=== PATIENT | female | born 1980 | race Caucasian/White ===

== ENCOUNTER 2016-07-13 14:52 | Inpatient (IN) | payer OTHER ==
[~2016-07-13] VITALS: Ht 157.5 cm; Wt 97.2 kg
[~2016-07-13 14:52] MED LIST: ACET500T68 PO; AMLO10TA2 PO; FLUO40CA9 PO; HYDR25TA9 PO; LISI40TA PO; MEDR150D3 IM; TRIA100A TP; VENTOLIN HFA18 GM INH
[2016-07-13 17:00] LABS: BASO # 0.1 x10^3/uL (0.0-0.2); BASO % 1 % (0-3); EOS % 3 % (0-3); HEMATOCRIT 36.7 % (36.0-47.0); LYMPH # 1.5 x10^3/uL (1.0-4.8); LYMPH % 12 % (24-48); MEAN CORPUSCULAR HEMOGLOBIN 29 pg (25-35); MEAN CORPUSCULAR HGB CONC 33 g/dL (31-37); MEAN CORPUSCULAR VOLUME 87 fL (79-100); MONO % 6 % (0-9); NEUT % 79 % (31-73); PLATELET COUNT 209 x10^3/uL (140-400); RED BLOOD COUNT 4.21 x10^6/uL (3.50-5.40); RED CELL DISTRIBUTION WIDTH 15.5 % (11.5-14.5); WHITE BLOOD COUNT 12.5 x10^3/uL (4.0-11.0)
[2016-07-13] MEDS ORDERED: LABETALOL 20 MG/4 ML DISP.SYRIN. IVP ONE (17:00)
[2016-07-13 17:08] LABS: BILIRUBIN,URINE NEGATIVE (NEG); GLUCOSE,URINE NEGATIVE (NEG); NITRITE,URINE NEGATIVE (NEG); PH,URINE 7.5; PROTEIN,URINE >=300 mg/dL (NEG-TRACE); UROBILINOGEN,URINE 0.2 mg/dL (0.2 mg/dL)
[2016-07-13 17:15] LABS: CALCIUM 8.9 mg/dL (8.5-10.1); CREATININE 2.7 mg/dL (0.6-1.0); GFR 19.9; POTASSIUM 4.5 mmol/L (3.5-5.1)
[2016-07-13 17:20] LABS: ALBUMIN 2.3 g/dL (3.4-5.0); ALBUMIN/GLOBULIN RATIO 0.5 (1.0-1.7); TOTAL BILIRUBIN 0.2 mg/dL (0.2-1.0); TOTAL PROTEIN 6.8 g/dL (6.4-8.2)
[2016-07-13 17:25] LABS: BACTERIA,URINE 0 /HPF (0-FEW); SQUAMOUS EPITHELIAL CELL,UR MOD /LPF
--- NOTE | 2016-07-13 17:42 | PHYS DOC ---
Past Medical History Past Medical History: Asthma, Bipolar, Hypertension, Other Additional Past Medical Histor: learning disability Past Surgical History: No Surgical History Alcohol Use: Occasionally Drug Use: None Adult General Chief Complaint Chief Complaint: ABDOMINAL PAIN HPI HPI Patient is a 36 year old female who presents with complaint of abdominal pain. Patient states that she has had symptoms for the past 5 days. Patient was seen in the emergency department on July 09, 2016 and evaluated for similar complaints. The patient had an ultrasound which showed a mildly distended gallbladder with positive sonographic Chang's but no signs of gallbladder wall thickening, pericholecystic fluid, or gallstones. At that visit the patient was told that she would need to be admitted the hospital but decided to leave AGAINST MEDICAL ADVICE. The patient comes back today with persistent pain. Patient admits that she has had nausea and vomiting. Patient denies any associated fevers. Patient rates her pain on my evaluation as 8 out of 10. Patient has history of hypertension and was noted at triage to be critically hypertensive. Patient states that she took her medication as prescribed today. Review of Systems Review of Systems Constitutional: Denies fever or chills [] Eyes: Denies change in visual acuity, redness, or eye pain [] HENT: Denies nasal congestion or sore throat [] Respiratory: Denies cough or shortness of breath [] Cardiovascular: Denies chest pain or edema [] GI: Abdominal pain, nausea, vomiting, denies bloody stools or diarrhea [] : Denies dysuria or hematuria [] Musculoskeletal: Denies back pain or joint pain [] Integument: Denies rash or skin lesions [] Neurologic: Denies headache, focal weakness or sensory changes [] Current Medications Current Medications Current Medications Medications (Trade) Dose Ordered Sig/Bety Start Time Stop Time Status Last Admin Dose Admin Labetalol HCl (Normodyne) 20 mg 1X ONCE 07/13/16 17:00 07/13/16 17:01 DC 07/13/16 17:10 20 MG Allergies Allergies Allergies Coded Allergies Type Severity Reaction Last Updated Verified No Known Drug Allergies 12/08/15 No Physical Exam Physical Exam Constitutional: Alert, afebrile, appears in mild discomfort. [] HENT: Normocephalic, atraumatic, bilateral external ears normal, oropharynx moist, no oral exudates, nose normal. [] Eyes: PERRLA, EOMI, conjunctiva normal, no discharge. [] Neck: Normal range of motion, no tenderness, supple, no stridor. [] Cardiovascular: Tachycardia, regular rhythm, no murmur [] Lungs & Thorax: Bilateral breath sounds clear to auscultation [] Abdomen: Bowel sounds normal, soft, epigastric and right upper quadrant tenderness to palpation with guarding, no rebound tenderness, no masses, no pulsatile masses. [] Skin: Warm, dry, no erythema, no rash. [] Back: No tenderness, no CVA tenderness. [] Extremities: No tenderness, no cyanosis, no clubbing, ROM intact, no edema. [] Neurologic: Alert and oriented X 3, normal motor function, normal sensory function, no focal deficits noted. [] Current Patient Data Vital Signs Vital Signs Date Time Temp Pulse Resp B/P Pulse Ox O2 Delivery O2 Flow Rate FiO2 07/13/16 17:10 85 215/129 07/13/16 15:00 98.7 17 100 Room Air 98.7 Lab Values Laboratory Tests Test 07/13/16 15:00 07/13/16 15:45 Urine Collection Type Unknown Urine Color Yellow Urine Clarity Clear Urine pH 7.5 Urine Specific [place] 1.015 Urine Protein >=300mg/dL (NEG-TRACE) Urine Glucose (UA) Negativemg/dL (NEG) Urine Ketones (Stick) Negativemg/dL (NEG) Urine Blood Trace (NEG) Urine Nitrite Negative (NEG) Urine Bilirubin Negative (NEG) Urine Urobilinogen Dipstick 0.2mg/dL (0.2 mg/dL) Urine Leukocyte Esterase Negative (NEG) Urine RBC 6-10/HPF (0-2) Urine WBC 1-4/HPF (0-4) Urine Squamous Epithelial Cells Mod/LPF Urine Bacteria 0/HPF (0-FEW) Urine Mucus Slight/LPF White Blood Count 12.5x10^3/uL (4.0-11.0) H Red Blood Count 4.21x10^6/uL (3.50-5.40) Hemoglobin 12.0g/dL (12.0-15.5) Hematocrit 36.7% (36.0-47.0) Mean Corpuscular Volume 87fL (79-100) Mean Corpuscular Hemoglobin 29pg (25-35) Mean Corpuscular Hemoglobin Concent 33g/dL (31-37) Red Cell Distribution Width 15.5% (11.5-14.5) H Platelet Count 209x10^3/uL (140-400) Neutrophils (%) (Auto) 79% (31-73) H Lymphocytes (%) (Auto) 12% (24-48) L Monocytes (%) (Auto) 6% (0-9) Eosinophils (%) (Auto) 3% (0-3) Basophils (%) (Auto) 1% (0-3) Neutrophils # (Auto) 9.9x10^3uL (1.8-7.7) H Lymphocytes # (Auto) 1.5x10^3/uL (1.0-4.8) Monocytes # (Auto) 0.7x10^3/uL (0.0-1.1) Eosinophils # (Auto) 0.4x10^3/uL (0.0-0.7) Basophils # (Auto) 0.1x10^3/uL (0.0-0.2) Sodium Level 142mmol/L (136-145) Potassium Level 4.5mmol/L (3.5-5.1) Chloride Level 108mmol/L (98-107) H Carbon Dioxide Level 25mmol/L (21-32) Anion Gap 9 (6-14) Blood Urea Nitrogen 25mg/dL (7-20) H Creatinine 2.7mg/dL (0.6-1.0) H Estimated GFR (Cockcroft-Gault) 19.9 BUN/Creatinine Ratio 9 (6-20) Glucose Level 89mg/dL (70-99) Calcium Level 8.9mg/dL (8.5-10.1) Total Bilirubin 0.2mg/dL (0.2-1.0) Aspartate Amino Transferase (AST) 23U/L (15-37) Alanine Aminotransferase (ALT) 31U/L (14-59) Alkaline Phosphatase 113U/L (46-116) Total Protein 6.8g/dL (6.4-8.2) Albumin 2.3g/dL (3.4-5.0) L Albumin/Globulin Ratio 0.5 (1.0-1.7) L Lipase 1160U/L (73-393) H Laboratory Tests 07/13/16 15:45 Laboratory Tests 07/13/16 15:45 EKG EKG Not performed [] Radiology/Procedures Radiology/Procedures [facility] [address] [place] [address] IMAGING REPORT Signed PATIENT: JESSICA CALLE ACCOUNT: [id number] : 1980 LOCATION: ICU AGE: 36 SEX: F EXAM STATUS: ADM IN ORD. PHYSICIAN: GAUDENCIO TIMMONS MD REASON: right upper quadrant pain, history of gallstones, acute pancreatitis PROCEDURE: ABDOMEN LTD PROCEDURE Right upper quadrant ultrasound HISTORY 36-year-old female complaining of sharp epigastric pain for 1 day, history of gallstones and acute pancreatitis. TECHNIQUE Targeted sonography of the right upper quadrant is performed, with transverse and longitudinal images obtained. COMPARISON None FINDINGS The pancreas is mostly obscured by overlying bowel gas and not well evaluated. No focal fluid collection is seen in the region of the pancreas. The liver demonstrates normal contour and echogenicity measuring 15.9 cm. Main portal vein demonstrates normal directional flow. Right hepatic vein is patent. The right kidney measures 11.2 by 4.9 x 5.3 cm. No hydronephrosis is present. A tiny, 8 mm, mostly anechoic appearing structure is visualized in the mid right kidney, likely a sub centimeter cyst. No intraluminal, calcified gallstones are seen. The gallbladder is small in size, somewhat contracted with mild prominence of the wall with a thickness of 3.6 mm, likely secondary to NPO status. No pericholecystic fluid is seen. Common bile duct measures 4 mm in diameter. IMPRESSION 1. No acute sonographic finding in the right upper quadrant. No evidence of cholelithiasis. Pancreas not well visualized. 2. Sub centimeter, probable right renal cyst. Electronically signed by: Alvarez Lea (Jul 13, 2016 18:47:22) DICTATED and SIGNED BY: ALVAREZ LEA MD DATE: 07/13/161846 CC: GAUDENCIO TIMMONS MD; NO PCP ~ [] Course & Med Decision Making Course & Med Decision Making Pertinent Labs and Imaging studies reviewed. (See chart for details) Patient was given IV labetalol in the emergency department for hypertension. Patient was treated with fentanyl for pain. Patient was found have critically elevated blood pressure. The patient's labs were reviewed from July 09, 2016 at her previous visit. The patient's lipase was normal at that visit. On today's visit the patient's lipase is significantly elevated showing evidence of acute pancreatitis. The patient will need admission to the hospital for acute control of blood pressure and further workup for acute pancreatitis. I spoke with Dr. Weaver who accepted care patient in hospital. Dragon Disclaimer Dragon Disclaimer This electronic medical record was generated, in whole or in part, using a voice recognition dictation system. Departure Departure Impression: Primary Impression: Accelerated hypertension Additional Impression: Acute pancreatitis Disposition: ADMITTED INPATIENT Admitting Physician: Bernadette Weaver Condition: GUARDED Referrals: NO PCP (PCP) Problem Qualifiers Additional Impression: Acute pancreatitis Pancreatitis type: unspecified pancreatitis type Acute pancreatitis complication: unspecified Qualified Code: K85.90 - Acute pancreatitis without necrosis or infection, unspecified GAUDENCIO TIMMONS MD Jul 13, 2016 17:42
[2016-07-13] MEDS ORDERED: hydrALAZINE 20 MG/ML VIAL. IVP PRN (17:45)
[2016-07-13] MEDS ORDERED: LABETALOL 20 MG/4 ML DISP.SYRIN. IVP PRN (17:45)
[2016-07-13] MEDS ORDERED: ONDANSETRON PF 4 MG/2 ML VIAL. IV PRN (17:45)
[2016-07-13] MEDS: FENTANYL PF 100 MCG/2 ML VIAL. IV PRN ×2 (18:08→20:05)
[2016-07-13] MEDS: IV NORMAL SALINE 1000ML BAG 1,000 ML IV SCH (18:09)
--- NOTE | 2016-07-13 18:49 | RAD ---
PROCEDURE Right upper quadrant ultrasound HISTORY 36-year-old female complaining of sharp epigastric pain for 1 day, history of gallstones and acute pancreatitis. TECHNIQUE Targeted sonography of the right upper quadrant is performed, with transverse and longitudinal images obtained. COMPARISON None FINDINGS The pancreas is mostly obscured by overlying bowel gas and not well evaluated. No focal fluid collection is seen in the region of the pancreas. The liver demonstrates normal contour and echogenicity measuring 15.9 cm. Main portal vein demonstrates normal directional flow. Right hepatic vein is patent. The right kidney measures 11.2 by 4.9 x 5.3 cm. No hydronephrosis is present. A tiny, 8 mm, mostly anechoic appearing structure is visualized in the mid right kidney, likely a sub centimeter cyst. No intraluminal, calcified gallstones are seen. The gallbladder is small in size, somewhat contracted with mild prominence of the wall with a thickness of 3.6 mm, likely secondary to NPO status. No pericholecystic fluid is seen. Common bile duct measures 4 mm in diameter. IMPRESSION 1. No acute sonographic finding in the right upper quadrant. No evidence of cholelithiasis. Pancreas not well visualized. 2. Sub centimeter, probable right renal cyst. Electronically signed by: Meenu Lea (Jul 13, 2016 18:47:22)
[2016-07-13 19:00] VITALS: BP 194/110
[2016-07-13 19:53] LABS: CHOLESTEROL/HDL RATIO 5.7
[2016-07-13] MEDS: NICARDIPINE HCL 50 MG in IV NORMAL SALINE 250ML 250 ML IV PRN (20:06)
[2016-07-13 20:21] VITALS: BP 194/110
[2016-07-13 20:23] VITALS: BP 161/110
[2016-07-13 20:38] VITALS: BP 156/95
[2016-07-13 20:42] LABS: FREE T4 1.17 ng/dL (0.76-1.46)
[2016-07-13 21:00] VITALS: BP 162/92
--- NOTE | 2016-07-13 21:56 | ACF ---
Admission Forms Criteria HYPERTENSION Clinical Indications for Admission to Inpatient Care ( Place "X" for any and all applicable criteria): Admission is indicated for ANY ONE of the following(1)(2)(3)(4): [ ]I. Hypertensive emergency, with evidence of acute and progressing target organ disease as indicated by ANY ONE of the following: [ ]a) Hypertensive encephalopathy (eg, confusion, altered mental status) [ ]b) Cerebral infarction [ ]c) Intracranial hemorrhage [ ]d) Myocardial ischemia or infarction [ ]e) Pulmonary edema [ ]f) Aortic dissection [ ]g) Seizure [ ]h) Acute renal insufficiency [ ]i) Papilledema [ ]j) Microangiopathic hemolytic anemia [ ]II. Adrenergic crisis (eg, severe hypertension due to pheochromocytoma crisis, cocaine or amphetamine intoxication, or clonidine withdrawal) [X]III. Severe hypertension (SBP greater than 180 mmHg or DBP greater than 110 mmHg or greater than the 95th percentile for age, gender, and height in pediatric patients) that cannot be controlled (eg, to SBP less than 160 mmHg and DBP less than 100 mmHg in adults) by treatment with oral medication in emergency department or observation care Extended stay beyond goal length of stay may be needed for(11)(12)(13): [ ]a) Persistent hypertensive encephalopathy [ ]b) Continuation of pulmonary edema [ ]c) Recurring or persistent severe hypertension [ ]d) Target organ damage (eg, angina, stroke, aortic dissection) [ ]e) Associated renal insufficiency The original [employer] content created by [employer] has been revised. The portions of the content which have been revised are identified through the use of italic text or in bold, and [facility] has neither reviewed nor approved the modified material. All other unmodified content is copyright [employer]. Please see references footnoted in the original [employer] edition 2016 Admission Criteria Met?: Yes NGUYỄN MENDOZA Jul 13, 2016 21:56
[2016-07-13 23:00] VITALS: BP 141/74
[2016-07-13] MEDS ORDERED: AMLO10TA2 PO (23:30)
[2016-07-13] MEDS ORDERED: LISI40TA PO (23:30)
[2016-07-13] MEDS ORDERED: FLUO40CA9 PO (23:30)
--- NOTE | 2016-07-13 23:59 | PDOC1 ---
History and Physical Date of Admission Date of Admission DATE: 07/13/16 TIME: 23:59 Identification/Chief Complaint Chief Complaint abd pain Source Source: Chart review, Patient History of Present Illness History of Present Illness Ms. Acuna, is a 36 year old female admit from ER w/ acute abdominal pain. has had Nausea and vomiting Worsneing pain for the past 5 days, was 8/10, now she reports resolved after fluids and some NPO Accel HTn in ER, BP 220/100, cardene gtt started . she was eval here in the ER 4 days ago, left AMA positive sonographic Chang's but no signs of gallbladder wall thickening, pericholecystic fluid, or gallstones. she inquired if she could be DC tomorrow she is on disability for her bipolar D/O, lives with her mother Past Medical History Cardiovascular: HTN Psych: Anxiety, Bipolar, Depression Musculoskeletal: low back pain ENT: No pertinent hx Renal/: No pertinent hx Endocrine: No pertinent hx Dermatology: No pertinent hx Family History Family History: No Significant Social History Smoke: No ALCOHOL: none Drugs: None Current Problem List Problem List Problems Medical Problems: (1) Accelerated hypertension Status: Acute (2) Acute pancreatitis Status: Acute Problems: Current Medications Current Medications Current Medications Labetalol HCl (Normodyne) 20 mg 1X ONCE IVP Last administered on 07/13/16 17: 10; Start 07/13/16 at 17:00; Stop 07/13/16 at 17:01; Status DC Ondansetron HCl (Zofran) 4 mg PRN Q8HRS PRN IV NAUSEA/VOMITING; Start 07/13/16 at 17:45; Stop 07/14/16 at 17:44 Fentanyl Citrate 50 mcg 50 mcg PRN Q2HR PRN IV PAIN Last administered on 20:05; Start 07/13/16 at 17:45; Stop 07/14/16 at 17:44 Sodium Chloride (Iv Sodium Chloride 0.9% 1000ml Bag) 1,000 ml @ 125 mls/hr Q8H IV Last administered on 07/13/16 18:09; Start 07/13/16 at 18:00; Stop 07/14/16 at 17:59 Labetalol HCl (Normodyne) 20 mg PRN Q2HR PRN IVP HYPERTENSION, SEE COMMENTS; Start 07/13/16 at 17:45 Hydralazine HCl 10 mg 10 mg PRN Q4HRS PRN IVP ELEVATED BP, SEE COMMENTS Last administered on 07/13/16 18:07; Start 07/13/16 at 17:45 Nicardipine HCl/ Sodium Chloride (Cardene/Iv Sodium Chloride 0.9% 250ml) 270 ml @ 0 mls/hr CONT PRN IV SEE I/O RECORD Last administered on 07/13/16 20:06; Start 07/13/16 at 19:30 Active Scripts Active Reported Amlodipine Besylate 10 Mg Tablet 10 Mg PO DAILY Lisinopril 40 Mg Tablet 1 Tab PO HS Prozac (Fluoxetine Hcl) 40 Mg Capsule 1 Cap PO DAILY Allergies Allergies: Coded Allergies: No Known Drug Allergies (Unverified , 12/08/15) ROS General: YES: Appetite, Fatigue, Malaise, No: Chills, Night Sweats, Other PSYCHOLOGICAL ROS: No: Anxiety, Behavioral Disorder, Concentration difficultie , Decreased libido, Depression, Disorientation, Hallucinations, Hostility, Irritablity, Memory difficulties, Mood Swings, Obsessive thoughts, Other, Physical abuse, Sexual abuse, Sleep disturbances, Suicidal ideation Eyes: No Blurry vision, No Decreased vision, No Double vision, No Dry eyes, No Excessive tearing, No Eye Pain, No Itchy Eyes, No Loss of vision, No Other, No Photophobia, No Scotomata, No Uses contacts, No Uses glasses HEENT: No: Epistaxis, Heacaches, Hearing change, Nasal congestion, Nasal discharge, Oral lesions, Other, Sinus pain, Sneezing, Snoring, Sore Throat, Tinnitus, Vertigo, Visual Changes, Vocal changes Respiratory: No: Cough, Hemoptysis, Orthopnea, Other, Pleuritic Pain, SOB with excertion, Shortness of breath, Sputum Changes, Stridor, Tachypnea, Wheezing Cardiovascular: No Chest Pain, No Edema, No Lt Headedness, No Orthopnea, No Other, No Palpitations, No Paroxysmal Noc. Dyspnea Gastrointestinal: Yes Abdominal Pain, Yes Nausea, No Constipation, No Diarrhea, No Hematochezia, No Melena, No Other, No Vomiting Genitourinary: No , No , No , No , No , No , No , No Discharge, No Dysuria, No Flank Pain, No Frequency, No Hematuria, No Incontinence, No Other, No Pain, No Retention, No Urgency Musculoskeletal: Yes Joint Stiffness, No Gait Disturbance, No Joint Swelling, No Muscle Pain, No Muscular Weakness , No Other, No Pain In:, No Swelling In: Neurological: No Behavorial Changes, No Bowel/Bladder ControlChng, No Confusion , No Dizziness, No Gait Disturbance, No Headaches, No Impaired Coord/balance, No Memory Loss, No Numbness/Tingling, No Other, No Seizures, No Speech Problems , No Tremors, No Visual Changes, No Weakness Skin: Yes Dry Skin, No Acne, No Eczema, No Hair Changes, No Lumps, No Mole Changes, No Mottling, No Nail Changes, No Other, No Pruritus, No Rash, No Skin Lesion Changes Physical Exam General: Alert, Oriented X3, Cooperative, No acute distress HEENT: Atraumatic, EOMI, Mucous membr. moist/pink Lungs: Normal air movement Heart: no gallops, no murmurs Abdomen: Normal bowel sounds, Soft, No tenderness (obese) Rectal Exam: not examined, deferred Extremities: No clubbing, No edema, Normal pulses Skin: No rashes, No significant lesion Neuro: Normal speech, Sensation intact Psych/Mental Status: Mental status NL, Mood NL Vitals Vitals Vital Signs Date Time Temp Pulse Resp B/P Pulse Ox O2 Delivery O2 Flow Rate FiO2 07/13/16 23:00 98.7 98 20 141/74 99 Room Air 98.7 Labs Labs Laboratory Tests Test 07/13/16 15:00 07/13/16 15:45 Urine Collection Type Unknown Urine Color Yellow Urine Clarity Clear Urine pH 7.5 Urine Specific [place] 1.015 Urine Protein >=300mg/dL (NEG-TRACE) Urine Glucose (UA) Negativemg/dL (NEG) Urine Ketones (Stick) Negativemg/dL (NEG) Urine Blood Trace (NEG) Urine Nitrite Negative (NEG) Urine Bilirubin Negative (NEG) Urine Urobilinogen Dipstick 0.2mg/dL (0.2 mg/dL) Urine Leukocyte Esterase Negative (NEG) Urine RBC 6-10/HPF (0-2) Urine WBC 1-4/HPF (0-4) Urine Squamous Epithelial Cells Mod/LPF Urine Bacteria 0/HPF (0-FEW) Urine Mucus Slight/LPF White Blood Count 12.5x10^3/uL (4.0-11.0) Red Blood Count 4.21x10^6/uL (3.50-5.40) Hemoglobin 12.0g/dL (12.0-15.5) Hematocrit 36.7% (36.0-47.0) Mean Corpuscular Volume 87fL (79-100) Mean Corpuscular Hemoglobin 29pg (25-35) Mean Corpuscular Hemoglobin Concent 33g/dL (31-37) Red Cell Distribution Width 15.5% (11.5-14.5) Platelet Count 209x10^3/uL (140-400) Neutrophils (%) (Auto) 79% (31-73) Lymphocytes (%) (Auto) 12% (24-48) Monocytes (%) (Auto) 6% (0-9) Eosinophils (%) (Auto) 3% (0-3) Basophils (%) (Auto) 1% (0-3) Neutrophils # (Auto) 9.9x10^3uL (1.8-7.7) Lymphocytes # (Auto) 1.5x10^3/uL (1.0-4.8) Monocytes # (Auto) 0.7x10^3/uL (0.0-1.1) Eosinophils # (Auto) 0.4x10^3/uL (0.0-0.7) Basophils # (Auto) 0.1x10^3/uL (0.0-0.2) Sodium Level 142mmol/L (136-145) Potassium Level 4.5mmol/L (3.5-5.1) Chloride Level 108mmol/L (98-107) Carbon Dioxide Level 25mmol/L (21-32) Anion Gap 9 (6-14) Blood Urea Nitrogen 25mg/dL (7-20) Creatinine 2.7mg/dL (0.6-1.0) Estimated GFR (Cockcroft-Gault) 19.9 BUN/Creatinine Ratio 9 (6-20) Glucose Level 89mg/dL (70-99) Calcium Level 8.9mg/dL (8.5-10.1) Total Bilirubin 0.2mg/dL (0.2-1.0) Aspartate Amino Transf (AST/SGOT) 23U/L (15-37) Alanine Aminotransferase (ALT/SGPT) 31U/L (14-59) Alkaline Phosphatase 113U/L (46-116) Total Protein 6.8g/dL (6.4-8.2) Albumin 2.3g/dL (3.4-5.0) Albumin/Globulin Ratio 0.5 (1.0-1.7) Triglycerides Level 131mg/dL (0-150) Cholesterol Level 245mg/dL (0-200) LDL Cholesterol, Calculated 176mg/dL (0-100) VLDL Cholesterol, Calculated 26mg/dL (0-40) HDL Cholesterol 43mg/dL (40-60) Cholesterol/HDL Ratio 5.7 Lipase 1160U/L (73-393) Thyroid Stimulating Hormone (TSH) 1.605uIU/mL (0.358-3.74) Free Thyroxine 1.17ng/dL (0.76-1.46) Free Triiodothyronine (T3) pg/mL 2.30pg/mL (2.18-3.98) Laboratory Tests Test 07/13/16 15:00 07/13/16 15:45 Urine Collection Type Unknown Urine Color Yellow Urine Clarity Clear Urine pH 7.5 Urine Specific [place] 1.015 Urine Protein >=300mg/dL (NEG-TRACE) Urine Glucose (UA) Negativemg/dL (NEG) Urine Ketones (Stick) Negativemg/dL (NEG) Urine Blood Trace (NEG) Urine Nitrite Negative (NEG) Urine Bilirubin Negative (NEG) Urine Urobilinogen Dipstick 0.2mg/dL (0.2 mg/dL) Urine Leukocyte Esterase Negative (NEG) Urine RBC 6-10/HPF (0-2) Urine WBC 1-4/HPF (0-4) Urine Squamous Epithelial Cells Mod/LPF Urine Bacteria 0/HPF (0-FEW) Urine Mucus Slight/LPF White Blood Count 12.5x10^3/uL (4.0-11.0) Red Blood Count 4.21x10^6/uL (3.50-5.40) Hemoglobin 12.0g/dL (12.0-15.5) Hematocrit 36.7% (36.0-47.0) Mean Corpuscular Volume 87fL (79-100) Mean Corpuscular Hemoglobin 29pg (25-35) Mean Corpuscular Hemoglobin Concent 33g/dL (31-37) Red Cell Distribution Width 15.5% (11.5-14.5) Platelet Count 209x10^3/uL (140-400) Neutrophils (%) (Auto) 79% (31-73) Lymphocytes (%) (Auto) 12% (24-48) Monocytes (%) (Auto) 6% (0-9) Eosinophils (%) (Auto) 3% (0-3) Basophils (%) (Auto) 1% (0-3) Neutrophils # (Auto) 9.9x10^3uL (1.8-7.7) Lymphocytes # (Auto) 1.5x10^3/uL (1.0-4.8) Monocytes # (Auto) 0.7x10^3/uL (0.0-1.1) Eosinophils # (Auto) 0.4x10^3/uL (0.0-0.7) Basophils # (Auto) 0.1x10^3/uL (0.0-0.2) Sodium Level 142mmol/L (136-145) Potassium Level 4.5mmol/L (3.5-5.1) Chloride Level 108mmol/L (98-107) Carbon Dioxide Level 25mmol/L (21-32) Anion Gap 9 (6-14) Blood Urea Nitrogen 25mg/dL (7-20) Creatinine 2.7mg/dL (0.6-1.0) Estimated GFR (Cockcroft-Gault) 19.9 BUN/Creatinine Ratio 9 (6-20) Glucose Level 89mg/dL (70-99) Calcium Level 8.9mg/dL (8.5-10.1) Total Bilirubin 0.2mg/dL (0.2-1.0) Aspartate Amino Transf (AST/SGOT) 23U/L (15-37) Alanine Aminotransferase (ALT/SGPT) 31U/L (14-59) Alkaline Phosphatase 113U/L (46-116) Total Protein 6.8g/dL (6.4-8.2) Albumin 2.3g/dL (3.4-5.0) Albumin/Globulin Ratio 0.5 (1.0-1.7) Triglycerides Level 131mg/dL (0-150) Cholesterol Level 245mg/dL (0-200) LDL Cholesterol, Calculated 176mg/dL (0-100) VLDL Cholesterol, Calculated 26mg/dL (0-40) HDL Cholesterol 43mg/dL (40-60) Cholesterol/HDL Ratio 5.7 Lipase 1160U/L (73-393) Thyroid Stimulating Hormone (TSH) 1.605uIU/mL (0.358-3.74) Free Thyroxine 1.17ng/dL (0.76-1.46) Free Triiodothyronine (T3) pg/mL 2.30pg/mL (2.18-3.98) VTE Prophylaxis Ordered VTE Prophylaxis Devices: No VTE Pharmacological Prophylaxi: Yes Assessment/Plan Assessment/Plan acute abd pain, pancreatitis, SIRS, not infectious, she reports no EtOH intake IV fluids, was NPO, now feels much better, try clears Acute renal failure, w./ accel htn, on cardene gtt, much better CV and renal both consulted hold lisinopril, check renal US, urine EOS, marked proteinuria in UA, check spot ATN probable obesity, BMI 39.2 w/ moderate malnutrition by serum albumin 2.3 nutrition consult bipolar d/o, on Prozac only, mood is excellent currently admit, EDUARD NUNEZ MD Jul 13, 2016 23:59
[2016-07-14] VITALS (9 sets, daily range): BP systolic 137–165; BP diastolic 80–94
[2016-07-14] MEDS: IV NORMAL SALINE 1000ML BAG 1,000 ML IV SCH ×2 (02:00→10:00)
[2016-07-14 04:52] LABS: BASO # 0.1 x10^3/uL (0.0-0.2); BASO % 1 % (0-3); EOS % 3 % (0-3); HEMOGLOBIN 11.3 g/dL (12.0-15.5); LYMPH % 18 % (24-48); MEAN CORPUSCULAR HEMOGLOBIN 29 pg (25-35); MEAN CORPUSCULAR HGB CONC 33 g/dL (31-37); MEAN CORPUSCULAR VOLUME 86 fL (79-100); MONO % 5 % (0-9); NEUT % 73 % (31-73); PLATELET COUNT 231 x10^3/uL (140-400); RED BLOOD COUNT 3.96 x10^6/uL (3.50-5.40); WHITE BLOOD COUNT 11.4 x10^3/uL (4.0-11.0)
[2016-07-14 05:07] LABS: CREATININE 2.3 mg/dL (0.6-1.0); POTASSIUM 4.7 mmol/L (3.5-5.1)
[2016-07-14] MEDS: NICARDIPINE HCL 50 MG in IV NORMAL SALINE 250ML 250 ML IV PRN (06:02)
--- NOTE | 2016-07-14 08:29 | RAD ---
EXAM: Renal/retroperitonal ultrasound HISTORY: Acute renal failure. Renal stones. COMPARISON: 07/13/2016. FINDINGS: Ultrasound of the kidneys, bladder and retroperitoneum was performed. The right kidney measures 10.5 cm. Cortical echogenicity is diffusely increased. Cortical thickness is preserved. There is no hydronephrosis. 2 small cysts measure 1 cm or less. Resistive indices are not increased at 0.67. The left kidney measures at least 8.9 cm, but this may be an underestimate as visualization is limited Cortical echogenicity is diffusely increased. Cortical thickness is preserved. There is no hydronephrosis. A small cyst measures 11 mm. A calculus is measured at 1 cm sonographically, but this may be an overestimate. Resistive indices are not increased at 0.68. Images of the bladder reveal no gross abnormality. Both ureteral jets are visualized. The abdominal aorta is grossly patent and normal in caliber. IMPRESSION: 1. Bilaterally increased renal cortical echogenicity is consistent with intrinsic renal disease. 2. No hydronephrosis. 3. A left renal calculus is measured at 1 cm but this may be an overestimate. 4. Small bilateral renal cysts.
--- NOTE | 2016-07-14 08:36 | PDOC2 ---
CONSULT Date of Consult Date of Consult DATE: 07/14/16 TIME: 08:29 Reason for Consult Reason for Consult: ELENA/ ? CKD III Referring Physician Referring Physician: Dr Weaver Identification/Chief Complaint Chief Complaint Abd Pain Problems: Source Source: Chart review, Patient History of Present Illness Reason for Visit: as dictated Past Medical History Cardiovascular: HTN Psych: Anxiety, Bipolar, Depression Musculoskeletal: low back pain ENT: No pertinent hx Renal/: No pertinent hx, Other (kidney stones in the past) Endocrine: No pertinent hx Dermatology: No pertinent hx Family History Family History: Diabetes, Hypertension, Kidney Disease Social History No ALCOHOL: none Drugs: None Current Problem List Problem List Problems Medical Problems: (1) Accelerated hypertension Status: Acute (2) Acute pancreatitis Status: Acute Current Medications Current Medications Current Medications Labetalol HCl (Normodyne) 20 mg 1X ONCE IVP Last administered on 07/13/16 17: 10; Start 07/13/16 at 17:00; Stop 07/13/16 at 17:01; Status DC Ondansetron HCl (Zofran) 4 mg PRN Q8HRS PRN IV NAUSEA/VOMITING; Start 07/13/16 at 17:45; Stop 07/14/16 at 17:44 Fentanyl Citrate 50 mcg 50 mcg PRN Q2HR PRN IV PAIN Last administered on 20:05; Start 07/13/16 at 17:45; Stop 07/14/16 at 17:44 Sodium Chloride (Iv Sodium Chloride 0.9% 1000ml Bag) 1,000 ml @ 125 mls/hr Q8H IV Last administered on 07/14/16 02:00; Start 07/13/16 at 18:00; Stop 07/14/16 at 17:59 Labetalol HCl (Normodyne) 20 mg PRN Q2HR PRN IVP HYPERTENSION, SEE COMMENTS; Start 07/13/16 at 17:45 Hydralazine HCl 10 mg 10 mg PRN Q4HRS PRN IVP ELEVATED BP, SEE COMMENTS Last administered on 07/13/16 18:07; Start 07/13/16 at 17:45 Nicardipine HCl/ Sodium Chloride (Cardene/Iv Sodium Chloride 0.9% 250ml) 270 ml @ 0 mls/hr CONT PRN IV SEE I/O RECORD Last administered on 3/9/17at 06:02; Start 07/13/16 at 19:30 Amlodipine Besylate (Norvasc) 10 mg DAILY PO ; Start 07/14/16 at 09:00 Fluoxetine HCl (Prozac) 40 mg DAILY PO ; Start 07/14/16 at 09:00 Enoxaparin Sodium (Lovenox Per Pharmacy Prophylaxis Dosing) 1 each PRN DAILY PRN MC SEE COMMENTS; Start 07/14/16 at 00:15 Enoxaparin Sodium (Lovenox 30mg Syringe) 30 mg DAILY SQ ; Start 07/14/16 at 09:00 Active Scripts Active Reported Amlodipine Besylate 10 Mg Tablet 10 Mg PO DAILY Lisinopril 40 Mg Tablet 1 Tab PO HS Prozac (Fluoxetine Hcl) 40 Mg Capsule 1 Cap PO DAILY Kenalog (Triamcinolone Acetonide) 100 Gm Aerosol 0.1 Gm TP Depo-Provera (Medroxyprogesterone Acetate) 150 Mg/1 Ml Disp.syrin 1 Ml IM [id number] Lisinopril 40 Mg Tablet 1 Tab PO DAILY Hydrochlorothiazide Tablet (Hydrochlorothiazide) 25 Mg Tablet 1 Tab PO DAILY Prozac (Fluoxetine Hcl) 40 Mg Capsule 1 Cap PO DAILY Amlodipine Besylate 10 Mg Tablet 10 Mg PO DAILY Ventolin Hfa Inhaler (Albuterol Sulfate) 18 Gm Hfa.aer.ad 2 Puff INH Q4HRS PRN Acetaminophen 500 Mg Tablet 500 Mg PO PRN Allergies Allergies: Coded Allergies: No Known Drug Allergies (Unverified , 12/08/15) ROS Review of System GEN: no Fevers no Chills EYES: no new Visual Complaints ENT: no EN Drainage no Hearing deficiets CVS: no Orthopnea no CP RESP: no SOB no MCCLAIN GI: min Nausea no Vomiting + abd Pain : no Dysuria no Urgency HEME: no easy bruising no Palp Ly Nodes NEURO no Focal Weakness no Sz PSYCH: no Suicidal Ideation ch Depression SKIN: no Rashes ENDO: no Polyuria or Polydipsia no Hot/Cold Intolerance MU SK: + Arthraigia occ Myalgia Physical Exam Physical Exam General Appearance: Awake Alert Oriented x 3 In no Distress Eyes: VIsion Unchanged Conjunctiva Normal EN: No EN Drainage Mucous Memb. moist Neck: no JVD no JVP Supple no Thyromegaly CVS: S1 S2 soft Murmur No Gallop No Rub no Edema Resp: no Rales no Rhonchi no Acc. Muscle use GI: BAS +ve NO Bruit Non Tender Non Distended : no CVA tenderness; no Suprapubic Tenderness SKIN: no Rashes Breast Exam deferred Mu.Sk: Adequate ROM no Muscle Atrophy Heme: Unable to palpate Obvious LAD no palp Splenomegaly NEURO: Good Strength and Tone Cranial Nerves II - XII grossly intact Psych: ? Depressed no Active hallucination Vital Signs Vital Signs Date Time Temp Pulse Resp B/P Pulse Ox O2 Delivery O2 Flow Rate FiO2 07/14/16 07:00 98.1 112 16 163/88 96 Room Air 98.1 Assessment & Plan ARF: ? Ac Gn asso with NSAIDs vs VMN. Doubt ATn just yet. Mi9ldy improved with IVF. Current FLuid and E-lyte status does not necessitate emergent need for Dialysis. Will re-evaluate for Dialysis in am ? CKD III - HTNsive /NS and or MELISSA from NSAIDs / stones- previous RUQ Us have shown MRDz of Rt Kidney (? fluid status then) Protienruia (despite being on LIOR-i) - ? NSAIDs asso GN vs HTnsive / NS - quantitate Malig HTN: Current BP meds reviewed (including gtt) . See orders for changes. Duplex as ordered (may need CTA once Creat stable); check UDS too Pancreatitis - IVF for now Discussed Plan of Care and prognosis etc. at length with pt Labs Labs Laboratory Tests Test 07/13/16 15:00 07/13/16 15:45 07/14/16 04:35 Urine Collection Type Unknown Urine Color Yellow Urine Clarity Clear Urine pH 7.5 Urine Specific [place] 1.015 Urine Protein >=300mg/dL (NEG-TRACE) Urine Glucose (UA) Negativemg/dL (NEG) Urine Ketones (Stick) Negativemg/dL (NEG) Urine Blood Trace (NEG) Urine Nitrite Negative (NEG) Urine Bilirubin Negative (NEG) Urine Urobilinogen Dipstick 0.2mg/dL (0.2 mg/dL) Urine Leukocyte Esterase Negative (NEG) Urine RBC 6-10/HPF (0-2) Urine WBC 1-4/HPF (0-4) Urine Squamous Epithelial Cells Mod/LPF Urine Bacteria 0/HPF (0-FEW) Urine Mucus Slight/LPF White Blood Count 12.5x10^3/uL (4.0-11.0) 11.4x10^3/uL (4.0-11.0) Red Blood Count 4.21x10^6/uL (3.50-5.40) 3.96x10^6/uL (3.50-5.40) Hemoglobin 12.0g/dL (12.0-15.5) 11.3g/dL (12.0-15.5) Hematocrit 36.7% (36.0-47.0) 34.0% (36.0-47.0) Mean Corpuscular Volume 87fL (79-100) 86fL (79-100) Mean Corpuscular Hemoglobin 29pg (25-35) 29pg (25-35) Mean Corpuscular Hemoglobin Concent 33g/dL (31-37) 33g/dL (31-37) Red Cell Distribution Width 15.5% (11.5-14.5) 16.0% (11.5-14.5) Platelet Count 209x10^3/uL (140-400) 231x10^3/uL (140-400) Neutrophils (%) (Auto) 79% (31-73) 73% (31-73) Lymphocytes (%) (Auto) 12% (24-48) 18% (24-48) Monocytes (%) (Auto) 6% (0-9) 5% (0-9) Eosinophils (%) (Auto) 3% (0-3) 3% (0-3) Basophils (%) (Auto) 1% (0-3) 1% (0-3) Neutrophils # (Auto) 9.9x10^3uL (1.8-7.7) 8.3x10^3uL (1.8-7.7) Lymphocytes # (Auto) 1.5x10^3/uL (1.0-4.8) 2.0x10^3/uL (1.0-4.8) Monocytes # (Auto) 0.7x10^3/uL (0.0-1.1) 0.6x10^3/uL (0.0-1.1) Eosinophils # (Auto) 0.4x10^3/uL (0.0-0.7) 0.4x10^3/uL (0.0-0.7) Basophils # (Auto) 0.1x10^3/uL (0.0-0.2) 0.1x10^3/uL (0.0-0.2) Sodium Level 142mmol/L (136-145) 144mmol/L (136-145) Potassium Level 4.5mmol/L (3.5-5.1) 4.7mmol/L (3.5-5.1) Chloride Level 108mmol/L (98-107) 110mmol/L (98-107) Carbon Dioxide Level 25mmol/L (21-32) 22mmol/L (21-32) Anion Gap 9 (6-14) 12 (6-14) Blood Urea Nitrogen 25mg/dL (7-20) 21mg/dL (7-20) Creatinine 2.7mg/dL (0.6-1.0) 2.3mg/dL (0.6-1.0) Estimated GFR (Cockcroft-Gault) 19.9 24.0 BUN/Creatinine Ratio 9 (6-20) Glucose Level 89mg/dL (70-99) 94mg/dL (70-99) Calcium Level 8.9mg/dL (8.5-10.1) 9.0mg/dL (8.5-10.1) Total Bilirubin 0.2mg/dL (0.2-1.0) Aspartate Amino Transf (AST/SGOT) 23U/L (15-37) Alanine Aminotransferase (ALT/SGPT) 31U/L (14-59) Alkaline Phosphatase 113U/L (46-116) Total Protein 6.8g/dL (6.4-8.2) Albumin 2.3g/dL (3.4-5.0) Albumin/Globulin Ratio 0.5 (1.0-1.7) Triglycerides Level 131mg/dL (0-150) Cholesterol Level 245mg/dL (0-200) LDL Cholesterol, Calculated 176mg/dL (0-100) VLDL Cholesterol, Calculated 26mg/dL (0-40) HDL Cholesterol 43mg/dL (40-60) Cholesterol/HDL Ratio 5.7 Lipase 1160U/L (73-393) Thyroid Stimulating Hormone (TSH) 1.605uIU/mL (0.358-3.74) Free Thyroxine 1.17ng/dL (0.76-1.46) Free Triiodothyronine (T3) pg/mL 2.30pg/mL (2.18-3.98) Laboratory Tests Test 07/13/16 15:00 07/13/16 15:45 07/14/16 04:35 Urine Collection Type Unknown Urine Color Yellow Urine Clarity Clear Urine pH 7.5 Urine Specific [place] 1.015 Urine Protein >=300mg/dL (NEG-TRACE) Urine Glucose (UA) Negativemg/dL (NEG) Urine Ketones (Stick) Negativemg/dL (NEG) Urine Blood Trace (NEG) Urine Nitrite Negative (NEG) Urine Bilirubin Negative (NEG) Urine Urobilinogen Dipstick 0.2mg/dL (0.2 mg/dL) Urine Leukocyte Esterase Negative (NEG) Urine RBC 6-10/HPF (0-2) Urine WBC 1-4/HPF (0-4) Urine Squamous Epithelial Cells Mod/LPF Urine Bacteria 0/HPF (0-FEW) Urine Mucus Slight/LPF White Blood Count 12.5x10^3/uL (4.0-11.0) 11.4x10^3/uL (4.0-11.0) Red Blood Count 4.21x10^6/uL (3.50-5.40) 3.96x10^6/uL (3.50-5.40) Hemoglobin 12.0g/dL (12.0-15.5) 11.3g/dL (12.0-15.5) Hematocrit 36.7% (36.0-47.0) 34.0% (36.0-47.0) Mean Corpuscular Volume 87fL (79-100) 86fL (79-100) Mean Corpuscular Hemoglobin 29pg (25-35) 29pg (25-35) Mean Corpuscular Hemoglobin Concent 33g/dL (31-37) 33g/dL (31-37) Red Cell Distribution Width 15.5% (11.5-14.5) 16.0% (11.5-14.5) Platelet Count 209x10^3/uL (140-400) 231x10^3/uL (140-400) Neutrophils (%) (Auto) 79% (31-73) 73% (31-73) Lymphocytes (%) (Auto) 12% (24-48) 18% (24-48) Monocytes (%) (Auto) 6% (0-9) 5% (0-9) Eosinophils (%) (Auto) 3% (0-3) 3% (0-3) Basophils (%) (Auto) 1% (0-3) 1% (0-3) Neutrophils # (Auto) 9.9x10^3uL (1.8-7.7) 8.3x10^3uL (1.8-7.7) Lymphocytes # (Auto) 1.5x10^3/uL (1.0-4.8) 2.0x10^3/uL (1.0-4.8) Monocytes # (Auto) 0.7x10^3/uL (0.0-1.1) 0.6x10^3/uL (0.0-1.1) Eosinophils # (Auto) 0.4x10^3/uL (0.0-0.7) 0.4x10^3/uL (0.0-0.7) Basophils # (Auto) 0.1x10^3/uL (0.0-0.2) 0.1x10^3/uL (0.0-0.2) Sodium Level 142mmol/L (136-145) 144mmol/L (136-145) Potassium Level 4.5mmol/L (3.5-5.1) 4.7mmol/L (3.5-5.1) Chloride Level 108mmol/L (98-107) 110mmol/L (98-107) Carbon Dioxide Level 25mmol/L (21-32) 22mmol/L (21-32) Anion Gap 9 (6-14) 12 (6-14) Blood Urea Nitrogen 25mg/dL (7-20) 21mg/dL (7-20) Creatinine 2.7mg/dL (0.6-1.0) 2.3mg/dL (0.6-1.0) Estimated GFR (Cockcroft-Gault) 19.9 24.0 BUN/Creatinine Ratio 9 (6-20) Glucose Level 89mg/dL (70-99) 94mg/dL (70-99) Calcium Level 8.9mg/dL (8.5-10.1) 9.0mg/dL (8.5-10.1) Total Bilirubin 0.2mg/dL (0.2-1.0) Aspartate Amino Transf (AST/SGOT) 23U/L (15-37) Alanine Aminotransferase (ALT/SGPT) 31U/L (14-59) Alkaline Phosphatase 113U/L (46-116) Total Protein 6.8g/dL (6.4-8.2) Albumin 2.3g/dL (3.4-5.0) Albumin/Globulin Ratio 0.5 (1.0-1.7) Triglycerides Level 131mg/dL (0-150) Cholesterol Level 245mg/dL (0-200) LDL Cholesterol, Calculated 176mg/dL (0-100) VLDL Cholesterol, Calculated 26mg/dL (0-40) HDL Cholesterol 43mg/dL (40-60) Cholesterol/HDL Ratio 5.7 Lipase 1160U/L (73-393) Thyroid Stimulating Hormone (TSH) 1.605uIU/mL (0.358-3.74) Free Thyroxine 1.17ng/dL (0.76-1.46) Free Triiodothyronine (T3) pg/mL 2.30pg/mL (2.18-3.98) TAE SOARES MD Jul 14, 2016 08:35
[2016-07-14] MEDS ORDERED: FLUOXETINE HCL 20 MG CAPSULE PO SCH (09:00)
[2016-07-14] MEDS ORDERED: AMLODIPINE BESYLATE 10 MG TABLET PO SCH (09:00)
[2016-07-14] MEDS ORDERED: ENOXAPARIN 30 MG/0.3 ML DISP.SYRIN. SQ SCH (09:00)
[2016-07-14] MEDS ORDERED: ONDANSETRON PF 4 MG/2 ML VIAL. IV PRN (09:26)
[2016-07-14] MEDS ORDERED: NON FORMULARY ITEM (Albuterol Sulfate (Ventolin Hfa Inhaler) 2 PUFF) INH PRN (09:30)
[2016-07-14] MEDS ORDERED: ALBUTEROL SULFATE 2.5 MG/3 ML NEBU. NEB PRN (09:45)
--- NOTE | 2016-07-14 10:23 | PDOC2 ---
GI CONSULT Reason For Consult: Pancreatitis HPI: HPI: 36 y/o female evaluated in the ER yesterday for abdominal pain. She was evaluated for same last week and left AMA. On this occasion was admitted w/ elevated lipase, accelerated HTN, and ELENA. History from pt a bit difficult this morning as she adamantly denies ongoing pain and would like to DC. Seems has abd pain that comes and goes, denies aggravating/alleviating factors, denies n/v. Occasional indigestion treated w/ Tums at home. Recently had some constipation but normally has 2 stools daily. Denies hematemesis, melena, hematochezia. Denies weight loss, change in appetite. No previous EGD or colonoscopy, says she will never agree to have these. Says she "quit drinking" two days ago but then states she only drinks on her birthday and New Year's. Labs: WBC 12.5 (now 11.4), Hgb 12 (now 11.3), BUN 25 (now 21), Cr 2.7 (now 2.3) , lipase 1160, normal LFTs, LDL 176, total chol 245. Note previous lipase elevation in 05/2016 of 2996. Has had three RUQ US since 05/2016; on 07/09 noted CBD 6mm in dimension, fatty liver, gallbladder sludge w/ positive Chang's sign , on 07/13 somewhat contracted gallbladder w/ mild prominence and wall thickening 3.6mm, CBD 4mm in diameter. No previous CT A/P here. PMH: PMH: HTN, anxiety/depression, bipolar Social History: Smoke: Quit ALCOHOL: rare Drugs: None ROS: GEN: Denies fevers, chills, sweats HEENT: Denies blurred vision, sore throat CV: Denies chest pain RESP: Denies shortness of air, cough GI: Per HPI : Denies hematuria, dysuria ENDO: Denies weight changes NEURO: Denies confusion, dizziness MSK: Denies weakness, joint pain/swelling SKIN: Denies jaundice, pruritus VItals: Vitals: Vital Signs Date Time Temp Pulse Resp B/P Pulse Ox O2 Delivery O2 Flow Rate FiO2 07/14/16 08:51 112 163/88 07/14/16 07:00 98.1 16 96 Room Air 98.1 Labs: Labs: Laboratory Tests Test 07/13/16 15:00 07/13/16 15:45 07/14/16 04:35 Urine Collection Type Unknown Urine Color Yellow Urine Clarity Clear Urine pH 7.5 Urine Specific [place] 1.015 Urine Protein >=300mg/dL (NEG-TRACE) Urine Glucose (UA) Negativemg/dL (NEG) Urine Ketones (Stick) Negativemg/dL (NEG) Urine Blood Trace (NEG) Urine Nitrite Negative (NEG) Urine Bilirubin Negative (NEG) Urine Urobilinogen Dipstick 0.2mg/dL (0.2 mg/dL) Urine Leukocyte Esterase Negative (NEG) Urine RBC 6-10/HPF (0-2) Urine WBC 1-4/HPF (0-4) Urine Squamous Epithelial Cells Mod/LPF Urine Bacteria 0/HPF (0-FEW) Urine Mucus Slight/LPF White Blood Count 12.5x10^3/uL (4.0-11.0) 11.4x10^3/uL (4.0-11.0) Red Blood Count 4.21x10^6/uL (3.50-5.40) 3.96x10^6/uL (3.50-5.40) Hemoglobin 12.0g/dL (12.0-15.5) 11.3g/dL (12.0-15.5) Hematocrit 36.7% (36.0-47.0) 34.0% (36.0-47.0) Mean Corpuscular Volume 87fL (79-100) 86fL (79-100) Mean Corpuscular Hemoglobin 29pg (25-35) 29pg (25-35) Mean Corpuscular Hemoglobin Concent 33g/dL (31-37) 33g/dL (31-37) Red Cell Distribution Width 15.5% (11.5-14.5) 16.0% (11.5-14.5) Platelet Count 209x10^3/uL (140-400) 231x10^3/uL (140-400) Neutrophils (%) (Auto) 79% (31-73) 73% (31-73) Lymphocytes (%) (Auto) 12% (24-48) 18% (24-48) Monocytes (%) (Auto) 6% (0-9) 5% (0-9) Eosinophils (%) (Auto) 3% (0-3) 3% (0-3) Basophils (%) (Auto) 1% (0-3) 1% (0-3) Neutrophils # (Auto) 9.9x10^3uL (1.8-7.7) 8.3x10^3uL (1.8-7.7) Lymphocytes # (Auto) 1.5x10^3/uL (1.0-4.8) 2.0x10^3/uL (1.0-4.8) Monocytes # (Auto) 0.7x10^3/uL (0.0-1.1) 0.6x10^3/uL (0.0-1.1) Eosinophils # (Auto) 0.4x10^3/uL (0.0-0.7) 0.4x10^3/uL (0.0-0.7) Basophils # (Auto) 0.1x10^3/uL (0.0-0.2) 0.1x10^3/uL (0.0-0.2) Sodium Level 142mmol/L (136-145) 144mmol/L (136-145) Potassium Level 4.5mmol/L (3.5-5.1) 4.7mmol/L (3.5-5.1) Chloride Level 108mmol/L (98-107) 110mmol/L (98-107) Carbon Dioxide Level 25mmol/L (21-32) 22mmol/L (21-32) Anion Gap 9 (6-14) 12 (6-14) Blood Urea Nitrogen 25mg/dL (7-20) 21mg/dL (7-20) Creatinine 2.7mg/dL (0.6-1.0) 2.3mg/dL (0.6-1.0) Estimated GFR (Cockcroft-Gault) 19.9 24.0 BUN/Creatinine Ratio 9 (6-20) Glucose Level 89mg/dL (70-99) 94mg/dL (70-99) Calcium Level 8.9mg/dL (8.5-10.1) 9.0mg/dL (8.5-10.1) Total Bilirubin 0.2mg/dL (0.2-1.0) Aspartate Amino Transf (AST/SGOT) 23U/L (15-37) Alanine Aminotransferase (ALT/SGPT) 31U/L (14-59) Alkaline Phosphatase 113U/L (46-116) Total Protein 6.8g/dL (6.4-8.2) Albumin 2.3g/dL (3.4-5.0) Albumin/Globulin Ratio 0.5 (1.0-1.7) Triglycerides Level 131mg/dL (0-150) Cholesterol Level 245mg/dL (0-200) LDL Cholesterol, Calculated 176mg/dL (0-100) VLDL Cholesterol, Calculated 26mg/dL (0-40) HDL Cholesterol 43mg/dL (40-60) Cholesterol/HDL Ratio 5.7 Lipase 1160U/L (73-393) Thyroid Stimulating Hormone (TSH) 1.605uIU/mL (0.358-3.74) Free Thyroxine 1.17ng/dL (0.76-1.46) Free Triiodothyronine (T3) pg/mL 2.30pg/mL (2.18-3.98) Allergies: Coded Allergies: No Known Drug Allergies (Unverified , 12/08/15) Medications: Current Medications Medications (Trade) Dose Ordered Sig/Bety Route PRN Reason Start Time Stop Time Status Last Admin Dose Admin Labetalol HCl (Normodyne) 20 mg 1X ONCE IVP 07/13/16 17:00 07/13/16 17:01 DC 07/13/16 17:10 Fentanyl Citrate 50 mcg 50 mcg PRN Q2HR PRN IV PAIN 07/13/16 17:45 07/14/16 17:44 07/13/16 20:05 Sodium Chloride (Iv Sodium Chloride 0.9% 1000ml Bag) 1,000 ml @ 125 mls/hr Q8H IV 07/13/16 18:00 07/14/16 17:59 07/14/16 02:00 Hydralazine HCl 10 mg 10 mg PRN Q4HRS PRN IVP ELEVATED BP, SEE COMMENTS 07/13/16 17:45 07/13/16 18:07 Nicardipine HCl/ Sodium Chloride (Cardene/Iv Sodium Chloride 0.9% 250ml) 270 ml @ 0 mls/hr CONT PRN IV SEE I/O RECORD 07/13/16 19:30 07/14/16 06:02 Amlodipine Besylate (Norvasc) 10 mg DAILY PO 07/14/16 09:00 07/14/16 08:51 Fluoxetine HCl (Prozac) 40 mg DAILY PO 07/14/16 09:00 07/14/16 08:51 Enoxaparin Sodium (Lovenox 30mg Syringe) 30 mg DAILY SQ 07/14/16 09:00 07/14/16 09:58 DC 07/14/16 08:54 Imaging: Imaging: RUQ US 05/13/16 IMPRESSION 1. Mild fatty infiltration of the liver. 2. Pancreas not visualized secondary to poor acoustic window. RUQ US 07/09/16 IMPRESSION 1. The common bile duct measures 6 millimeters in transverse dimension of the level of the head of pancreas which is upper limits of normal or minimal prominence. Correlate with liver function test. 2. Increased echogenicity noted throughout the liver likely hepatic steatosis. 3. Some minimal echogenicity identified in the gallbladder likely sludge. The examination is positive for ultrasonographic evidence of Chang's sign. However no evidence of pericholecystic fluid or gallbladder wall thickening identified to suggest acute cholecystitis. Clinical correlation is suggested. 4. Echogenic appearing right kidney likely due to medical renal disease. RUQ US 07/13/16 FINDINGS The pancreas is mostly obscured by overlying bowel gas and not well evaluated. No focal fluid collection is seen in the region of the pancreas. The liver demonstrates normal contour and echogenicity measuring 15.9 cm. Main portal vein demonstrates normal directional flow. Right hepatic vein is patent. The right kidney measures 11.2 by 4.9 x 5.3 cm. No hydronephrosis is present. A tiny , 8 mm, mostly anechoic appearing structure is visualized in the mid right kidney, likely a sub centimeter cyst. No intraluminal, calcified gallstones are seen. The gallbladder is small in size, somewhat contracted with mild prominence of the wall with a thickness of 3.6 mm, likely secondary to NPO status. No pericholecystic fluid is seen. Common bile duct measures 4 mm in diameter. IMPRESSION 1. No acute sonographic finding in the right upper quadrant. No evidence of cholelithiasis. Pancreas not well visualized. 2. Sub centimeter, probable right renal cyst. Renal US 08/14/16 IMPRESSION: 1. Bilaterally increased renal cortical echogenicity is consistent with intrinsic renal disease. 2. No hydronephrosis. 3. A left renal calculus is measured at 1 cm but this may be an overestimate. 4. Small bilateral renal cysts. PE: GEN: NAD HEENT: Atraumatic, PERRLA LUNGS: CTAB HEART: RRR, no murmurs ABD: NABS, S/ND/NT, no masses EXTREMITY: No edema SKIN: No rashes, no jaundice NEURO/PSYCH: A & O 3 A/P: A/P: Abdominal pain - resolved -seems comes and goes, unable to elaborate, has been seen in ER previously for same Elevated lipase -1160, also note elevation in 05/2016, normal LFTs Abnormal RUQ US -07/09: CBD 6mm in dimension, fatty liver, gallbladder sludge w/ positive Chang' s sign -07/13: somewhat contracted gallbladder w/ mild prominence/wall thickening 3.6mm, CBD 4mm ELENA HTN Dyspepsia -takes antacids at home Constipation - resolved -denies regular occurrences of this -- Will ask surg to see w/ gallbladder sludge, possible biliary pancreatitis. Will add H2 dru, Miralax PRN. KEN TILLMAN Jul 14, 2016 10:23
--- NOTE | 2016-07-14 10:44 | PDOC ---
PROGRESS NOTES Chief Complaint Chief Complaint 1. MAlignant HTN POA, on cardene gtt 2. ELENA, vasomotor vs hypertensive induced 3. Acute pancreatitis, idiopathic? 3. Unknown if existing CKD 4. Obesity 5. Bipolar Mood d/o stable 6. Chronic lumbago History of Present Illness History of Present Illness No abd pain, no emesis LIpase >1100 on admission Never had pancreatitis before Only drinks etoh on her bday and [place] CT scan neg for gB dse (at least limited view) BP still high STill needing cardene gtt Claims compliance to home BP meds HR 100s Feels ok PLAN: Keep CVICU COnt cardene gtt MAy start GI soft - recheck lipase ky FF up echo reuslts - just done this AM Dw pt and RN Vitals Vitals Vital Signs Date Time Temp Pulse Resp B/P Pulse Ox O2 Delivery O2 Flow Rate FiO2 07/14/16 08:51 112 163/88 07/14/16 07:00 98.1 16 96 Room Air 98.1 Physical Exam General: Alert, Oriented X3, Cooperative, No acute distress Heart: Regular rate, Normal S1, Normal S2 Lungs: Clear Abdomen: Normal bowel sounds, Soft, No tenderness (obese) Extremities: No clubbing, No edema, Normal pulses Skin: No rashes, No significant lesion Labs LABS Laboratory Tests Test 07/13/16 15:00 07/13/16 15:45 07/14/16 04:35 Urine Collection Type Unknown Urine Color Yellow Urine Clarity Clear Urine pH 7.5 Urine Specific [place] 1.015 Urine Protein >=300mg/dL (NEG-TRACE) Urine Glucose (UA) Negativemg/dL (NEG) Urine Ketones (Stick) Negativemg/dL (NEG) Urine Blood Trace (NEG) Urine Nitrite Negative (NEG) Urine Bilirubin Negative (NEG) Urine Urobilinogen Dipstick 0.2mg/dL (0.2 mg/dL) Urine Leukocyte Esterase Negative (NEG) Urine RBC 6-10/HPF (0-2) Urine WBC 1-4/HPF (0-4) Urine Squamous Epithelial Cells Mod/LPF Urine Bacteria 0/HPF (0-FEW) Urine Mucus Slight/LPF White Blood Count 12.5x10^3/uL (4.0-11.0) 11.4x10^3/uL (4.0-11.0) Red Blood Count 4.21x10^6/uL (3.50-5.40) 3.96x10^6/uL (3.50-5.40) Hemoglobin 12.0g/dL (12.0-15.5) 11.3g/dL (12.0-15.5) Hematocrit 36.7% (36.0-47.0) 34.0% (36.0-47.0) Mean Corpuscular Volume 87fL (79-100) 86fL (79-100) Mean Corpuscular Hemoglobin 29pg (25-35) 29pg (25-35) Mean Corpuscular Hemoglobin Concent 33g/dL (31-37) 33g/dL (31-37) Red Cell Distribution Width 15.5% (11.5-14.5) 16.0% (11.5-14.5) Platelet Count 209x10^3/uL (140-400) 231x10^3/uL (140-400) Neutrophils (%) (Auto) 79% (31-73) 73% (31-73) Lymphocytes (%) (Auto) 12% (24-48) 18% (24-48) Monocytes (%) (Auto) 6% (0-9) 5% (0-9) Eosinophils (%) (Auto) 3% (0-3) 3% (0-3) Basophils (%) (Auto) 1% (0-3) 1% (0-3) Neutrophils # (Auto) 9.9x10^3uL (1.8-7.7) 8.3x10^3uL (1.8-7.7) Lymphocytes # (Auto) 1.5x10^3/uL (1.0-4.8) 2.0x10^3/uL (1.0-4.8) Monocytes # (Auto) 0.7x10^3/uL (0.0-1.1) 0.6x10^3/uL (0.0-1.1) Eosinophils # (Auto) 0.4x10^3/uL (0.0-0.7) 0.4x10^3/uL (0.0-0.7) Basophils # (Auto) 0.1x10^3/uL (0.0-0.2) 0.1x10^3/uL (0.0-0.2) Sodium Level 142mmol/L (136-145) 144mmol/L (136-145) Potassium Level 4.5mmol/L (3.5-5.1) 4.7mmol/L (3.5-5.1) Chloride Level 108mmol/L (98-107) 110mmol/L (98-107) Carbon Dioxide Level 25mmol/L (21-32) 22mmol/L (21-32) Anion Gap 9 (6-14) 12 (6-14) Blood Urea Nitrogen 25mg/dL (7-20) 21mg/dL (7-20) Creatinine 2.7mg/dL (0.6-1.0) 2.3mg/dL (0.6-1.0) Estimated GFR (Cockcroft-Gault) 19.9 24.0 BUN/Creatinine Ratio 9 (6-20) Glucose Level 89mg/dL (70-99) 94mg/dL (70-99) Calcium Level 8.9mg/dL (8.5-10.1) 9.0mg/dL (8.5-10.1) Total Bilirubin 0.2mg/dL (0.2-1.0) Aspartate Amino Transf (AST/SGOT) 23U/L (15-37) Alanine Aminotransferase (ALT/SGPT) 31U/L (14-59) Alkaline Phosphatase 113U/L (46-116) Total Protein 6.8g/dL (6.4-8.2) Albumin 2.3g/dL (3.4-5.0) Albumin/Globulin Ratio 0.5 (1.0-1.7) Triglycerides Level 131mg/dL (0-150) Cholesterol Level 245mg/dL (0-200) LDL Cholesterol, Calculated 176mg/dL (0-100) VLDL Cholesterol, Calculated 26mg/dL (0-40) HDL Cholesterol 43mg/dL (40-60) Cholesterol/HDL Ratio 5.7 Lipase 1160U/L (73-393) Thyroid Stimulating Hormone (TSH) 1.605uIU/mL (0.358-3.74) Free Thyroxine 1.17ng/dL (0.76-1.46) Free Triiodothyronine (T3) pg/mL 2.30pg/mL (2.18-3.98) Review of Systems Review of Systems all 14 pt negative Assessment and Plan Assessmemt and Plan Problems Medical Problems: (1) Accelerated hypertension Status: Acute (2) Acute pancreatitis Status: Acute Problems: Comment Review of Relevant I have reviewed the following items jose (where applicable) has been applied. Labs Laboratory Tests Test 07/13/16 15:00 07/13/16 15:45 07/14/16 04:35 Urine Collection Type Unknown Urine Color Yellow Urine Clarity Clear Urine pH 7.5 Urine Specific [place] 1.015 Urine Protein >=300mg/dL (NEG-TRACE) Urine Glucose (UA) Negativemg/dL (NEG) Urine Ketones (Stick) Negativemg/dL (NEG) Urine Blood Trace (NEG) Urine Nitrite Negative (NEG) Urine Bilirubin Negative (NEG) Urine Urobilinogen Dipstick 0.2mg/dL (0.2 mg/dL) Urine Leukocyte Esterase Negative (NEG) Urine RBC 6-10/HPF (0-2) Urine WBC 1-4/HPF (0-4) Urine Squamous Epithelial Cells Mod/LPF Urine Bacteria 0/HPF (0-FEW) Urine Mucus Slight/LPF White Blood Count 12.5x10^3/uL (4.0-11.0) 11.4x10^3/uL (4.0-11.0) Red Blood Count 4.21x10^6/uL (3.50-5.40) 3.96x10^6/uL (3.50-5.40) Hemoglobin 12.0g/dL (12.0-15.5) 11.3g/dL (12.0-15.5) Hematocrit 36.7% (36.0-47.0) 34.0% (36.0-47.0) Mean Corpuscular Volume 87fL (79-100) 86fL (79-100) Mean Corpuscular Hemoglobin 29pg (25-35) 29pg (25-35) Mean Corpuscular Hemoglobin Concent 33g/dL (31-37) 33g/dL (31-37) Red Cell Distribution Width 15.5% (11.5-14.5) 16.0% (11.5-14.5) Platelet Count 209x10^3/uL (140-400) 231x10^3/uL (140-400) Neutrophils (%) (Auto) 79% (31-73) 73% (31-73) Lymphocytes (%) (Auto) 12% (24-48) 18% (24-48) Monocytes (%) (Auto) 6% (0-9) 5% (0-9) Eosinophils (%) (Auto) 3% (0-3) 3% (0-3) Basophils (%) (Auto) 1% (0-3) 1% (0-3) Neutrophils # (Auto) 9.9x10^3uL (1.8-7.7) 8.3x10^3uL (1.8-7.7) Lymphocytes # (Auto) 1.5x10^3/uL (1.0-4.8) 2.0x10^3/uL (1.0-4.8) Monocytes # (Auto) 0.7x10^3/uL (0.0-1.1) 0.6x10^3/uL (0.0-1.1) Eosinophils # (Auto) 0.4x10^3/uL (0.0-0.7) 0.4x10^3/uL (0.0-0.7) Basophils # (Auto) 0.1x10^3/uL (0.0-0.2) 0.1x10^3/uL (0.0-0.2) Sodium Level 142mmol/L (136-145) 144mmol/L (136-145) Potassium Level 4.5mmol/L (3.5-5.1) 4.7mmol/L (3.5-5.1) Chloride Level 108mmol/L (98-107) 110mmol/L (98-107) Carbon Dioxide Level 25mmol/L (21-32) 22mmol/L (21-32) Anion Gap 9 (6-14) 12 (6-14) Blood Urea Nitrogen 25mg/dL (7-20) 21mg/dL (7-20) Creatinine 2.7mg/dL (0.6-1.0) 2.3mg/dL (0.6-1.0) Estimated GFR (Cockcroft-Gault) 19.9 24.0 BUN/Creatinine Ratio 9 (6-20) Glucose Level 89mg/dL (70-99) 94mg/dL (70-99) Calcium Level 8.9mg/dL (8.5-10.1) 9.0mg/dL (8.5-10.1) Total Bilirubin 0.2mg/dL (0.2-1.0) Aspartate Amino Transf (AST/SGOT) 23U/L (15-37) Alanine Aminotransferase (ALT/SGPT) 31U/L (14-59) Alkaline Phosphatase 113U/L (46-116) Total Protein 6.8g/dL (6.4-8.2) Albumin 2.3g/dL (3.4-5.0) Albumin/Globulin Ratio 0.5 (1.0-1.7) Triglycerides Level 131mg/dL (0-150) Cholesterol Level 245mg/dL (0-200) LDL Cholesterol, Calculated 176mg/dL (0-100) VLDL Cholesterol, Calculated 26mg/dL (0-40) HDL Cholesterol 43mg/dL (40-60) Cholesterol/HDL Ratio 5.7 Lipase 1160U/L (73-393) Thyroid Stimulating Hormone (TSH) 1.605uIU/mL (0.358-3.74) Free Thyroxine 1.17ng/dL (0.76-1.46) Free Triiodothyronine (T3) pg/mL 2.30pg/mL (2.18-3.98) Laboratory Tests Test 07/13/16 15:00 07/13/16 15:45 07/14/16 04:35 Urine Collection Type Unknown Urine Color Yellow Urine Clarity Clear Urine pH 7.5 Urine Specific [place] 1.015 Urine Protein >=300mg/dL (NEG-TRACE) Urine Glucose (UA) Negativemg/dL (NEG) Urine Ketones (Stick) Negativemg/dL (NEG) Urine Blood Trace (NEG) Urine Nitrite Negative (NEG) Urine Bilirubin Negative (NEG) Urine Urobilinogen Dipstick 0.2mg/dL (0.2 mg/dL) Urine Leukocyte Esterase Negative (NEG) Urine RBC 6-10/HPF (0-2) Urine WBC 1-4/HPF (0-4) Urine Squamous Epithelial Cells Mod/LPF Urine Bacteria 0/HPF (0-FEW) Urine Mucus Slight/LPF White Blood Count 12.5x10^3/uL (4.0-11.0) 11.4x10^3/uL (4.0-11.0) Red Blood Count 4.21x10^6/uL (3.50-5.40) 3.96x10^6/uL (3.50-5.40) Hemoglobin 12.0g/dL (12.0-15.5) 11.3g/dL (12.0-15.5) Hematocrit 36.7% (36.0-47.0) 34.0% (36.0-47.0) Mean Corpuscular Volume 87fL (79-100) 86fL (79-100) Mean Corpuscular Hemoglobin 29pg (25-35) 29pg (25-35) Mean Corpuscular Hemoglobin Concent 33g/dL (31-37) 33g/dL (31-37) Red Cell Distribution Width 15.5% (11.5-14.5) 16.0% (11.5-14.5) Platelet Count 209x10^3/uL (140-400) 231x10^3/uL (140-400) Neutrophils (%) (Auto) 79% (31-73) 73% (31-73) Lymphocytes (%) (Auto) 12% (24-48) 18% (24-48) Monocytes (%) (Auto) 6% (0-9) 5% (0-9) Eosinophils (%) (Auto) 3% (0-3) 3% (0-3) Basophils (%) (Auto) 1% (0-3) 1% (0-3) Neutrophils # (Auto) 9.9x10^3uL (1.8-7.7) 8.3x10^3uL (1.8-7.7) Lymphocytes # (Auto) 1.5x10^3/uL (1.0-4.8) 2.0x10^3/uL (1.0-4.8) Monocytes # (Auto) 0.7x10^3/uL (0.0-1.1) 0.6x10^3/uL (0.0-1.1) Eosinophils # (Auto) 0.4x10^3/uL (0.0-0.7) 0.4x10^3/uL (0.0-0.7) Basophils # (Auto) 0.1x10^3/uL (0.0-0.2) 0.1x10^3/uL (0.0-0.2) Sodium Level 142mmol/L (136-145) 144mmol/L (136-145) Potassium Level 4.5mmol/L (3.5-5.1) 4.7mmol/L (3.5-5.1) Chloride Level 108mmol/L (98-107) 110mmol/L (98-107) Carbon Dioxide Level 25mmol/L (21-32) 22mmol/L (21-32) Anion Gap 9 (6-14) 12 (6-14) Blood Urea Nitrogen 25mg/dL (7-20) 21mg/dL (7-20) Creatinine 2.7mg/dL (0.6-1.0) 2.3mg/dL (0.6-1.0) Estimated GFR (Cockcroft-Gault) 19.9 24.0 BUN/Creatinine Ratio 9 (6-20) Glucose Level 89mg/dL (70-99) 94mg/dL (70-99) Calcium Level 8.9mg/dL (8.5-10.1) 9.0mg/dL (8.5-10.1) Total Bilirubin 0.2mg/dL (0.2-1.0) Aspartate Amino Transf (AST/SGOT) 23U/L (15-37) Alanine Aminotransferase (ALT/SGPT) 31U/L (14-59) Alkaline Phosphatase 113U/L (46-116) Total Protein 6.8g/dL (6.4-8.2) Albumin 2.3g/dL (3.4-5.0) Albumin/Globulin Ratio 0.5 (1.0-1.7) Triglycerides Level 131mg/dL (0-150) Cholesterol Level 245mg/dL (0-200) LDL Cholesterol, Calculated 176mg/dL (0-100) VLDL Cholesterol, Calculated 26mg/dL (0-40) HDL Cholesterol 43mg/dL (40-60) Cholesterol/HDL Ratio 5.7 Lipase 1160U/L (73-393) Thyroid Stimulating Hormone (TSH) 1.605uIU/mL (0.358-3.74) Free Thyroxine 1.17ng/dL (0.76-1.46) Free Triiodothyronine (T3) pg/mL 2.30pg/mL (2.18-3.98) Medications Current Medications Labetalol HCl (Normodyne) 20 mg 1X ONCE IVP Last administered on 07/13/16 17: 10; Start 07/13/16 at 17:00; Stop 07/13/16 at 17:01; Status DC Ondansetron HCl (Zofran) 4 mg PRN Q8HRS PRN IV NAUSEA/VOMITING; Start 07/13/16 at 17:45; Stop 07/14/16 at 09:28; Status DC Fentanyl Citrate 50 mcg 50 mcg PRN Q2HR PRN IV PAIN Last administered on 20:05; Start 07/13/16 at 17:45; Stop 07/14/16 at 17:44 Sodium Chloride (Iv Sodium Chloride 0.9% 1000ml Bag) 1,000 ml @ 125 mls/hr Q8H IV Last administered on 07/14/16 02:00; Start 07/13/16 at 18:00; Stop 07/14/16 at 17:59 Labetalol HCl (Normodyne) 20 mg PRN Q2HR PRN IVP HYPERTENSION, SEE COMMENTS; Start 07/13/16 at 17:45 Hydralazine HCl 10 mg 10 mg PRN Q4HRS PRN IVP ELEVATED BP, SEE COMMENTS Last administered on 07/13/16 18:07; Start 07/13/16 at 17:45 Nicardipine HCl/ Sodium Chloride (Cardene/Iv Sodium Chloride 0.9% 250ml) 270 ml @ 0 mls/hr CONT PRN IV SEE I/O RECORD Last administered on 07/14/16 06:02; Start 07/13/16 at 19:30 Amlodipine Besylate (Norvasc) 10 mg DAILY PO Last administered on 07/14/16 08: 51; Start 07/14/16 at 09:00 Fluoxetine HCl (Prozac) 40 mg DAILY PO Last administered on 07/14/16 08:51; Start 07/14/16 at 09:00 Enoxaparin Sodium (Lovenox Per Pharmacy Prophylaxis Dosing) 1 each PRN DAILY PRN MC SEE COMMENTS; Start 07/14/16 at 00:15; Stop 07/14/16 at 09:58; Status DC Enoxaparin Sodium (Lovenox 30mg Syringe) 30 mg DAILY SQ Last administered on t 08:54; Start 07/14/16 at 09:00; Stop 07/14/16 at 09:58; Status DC Ondansetron HCl (Zofran) 4 mg PRN Q6HRS PRN IV NAUSEA/VOMITING; Start 07/14/16 at 09:26 Amlodipine Besylate (Norvasc) 10 mg DAILY PO ; Start 07/15/16 at 09:00; Stop 02/21 at 09:00; Status DC Non-Formulary Medication 2 puff Q4HRS PRN INH SHORTNESS OF BREATH; Start at 09:30; Status UNV Non-Formulary Medication 1 cap DAILY PO ; Start 07/15/16 at 09:00; Stop at 09:00; Status DC Non-Formulary Medication 1 ml [id number] IM ; Start 10/12/16 at 09:00; Stop at 09:00; Status DC Albuterol Sulfate (Ventolin Neb Soln) 2.5 mg PRN Q4HRS PRN NEB SHORTNESS OF BREATH; Start 07/14/16 at 09:45 Enoxaparin Sodium (Lovenox 40mg Syringe) 40 mg DAILY SQ ; Start 07/15/16 at 09: 00 Active Scripts Active Reported Amlodipine Besylate 10 Mg Tablet 10 Mg PO DAILY Lisinopril 40 Mg Tablet 1 Tab PO HS Prozac (Fluoxetine Hcl) 40 Mg Capsule 1 Cap PO DAILY Kenalog (Triamcinolone Acetonide) 100 Gm Aerosol 0.1 Gm TP Depo-Provera (Medroxyprogesterone Acetate) 150 Mg/1 Ml Disp.syrin 1 Ml IM [id number] Lisinopril 40 Mg Tablet 1 Tab PO DAILY Hydrochlorothiazide Tablet (Hydrochlorothiazide) 25 Mg Tablet 1 Tab PO DAILY Prozac (Fluoxetine Hcl) 40 Mg Capsule 1 Cap PO DAILY Amlodipine Besylate 10 Mg Tablet 10 Mg PO DAILY Ventolin Hfa Inhaler (Albuterol Sulfate) 18 Gm Hfa.aer.ad 2 Puff INH Q4HRS PRN Acetaminophen 500 Mg Tablet 500 Mg PO PRN Vitals/I & O Vital Sign - Last 24 Hours 07/13/16 07/13/16 07/13/16 07/13/16 15:00 15:30 15:57 16:02 Temp 98.7 98.7 Pulse 91 84 94 86 Resp 17 20 24 20 B/P 232/130 227/125 224/134 224/131 Pulse Ox 100 100 100 100 O2 Delivery Room Air Room Air 07/13/16 07/13/16 07/13/16 07/13/16 16:32 16:59 17:02 17:10 Pulse 92 86 86 85 Resp 19 20 18 B/P 226/128 219/128 215/129 215/129 Pulse Ox 100 100 100 O2 Delivery Room Air 07/13/16 07/13/16 07/13/16 07/13/16 17:17 17:32 17:52 18:02 Pulse 80 86 85 78 Resp 18 19 20 20 B/P 209/125 191/116 229/130 223/119 Pulse Ox 100 100 100 100 O2 Delivery Room Air 07/13/16 07/13/16 07/13/16 07/13/16 18:07 18:08 18:19 18:32 Pulse 82 86 88 Resp 18 18 19 B/P 223/119 200/113 202/113 Pulse Ox 99 100 100 O2 Delivery Room Air Room Air 07/13/16 07/13/16 07/13/16 07/13/16 18:41 19:00 20:00 20:21 Temp 98.1 98.1 98.1 98.1 Pulse 88 91 91 Resp 21 18 B/P 176/100 194/110 194/110 Pulse Ox 100 99 99 O2 Delivery Room Air Room Air Room Air 07/13/16 07/13/16 07/13/16 07/13/16 20:23 20:38 21:00 21:46 Pulse 92 94 B/P 161/110 156/95 162/92 Pulse Ox 99 O2 Delivery Room Air Room Air 07/13/16 07/14/16 07/14/16 07/14/16 23:00 00:00 02:01 04:00 Temp 98.7 98.7 Pulse 98 96 92 90 Resp 20 B/P 141/74 160/92 156/89 139/82 Pulse Ox 99 O2 Delivery Room Air 3/01/2207/14/16 07/14/16 05:00 07:00 08:51 Temp 98.1 98.1 Pulse 92 112 112 Resp 16 B/P 152/87 163/88 163/88 Pulse Ox 96 O2 Delivery Room Air Intake and Output 07/13/16 07/13/16 07/14/16 15:00 23:00 07:00 Intake Total 0 ml 2230 ml Balance 0 ml 2230 ml CARISSA HUSSEIN MD Jul 14, 2016 10:43
[2016-07-14] MEDS ORDERED: POLYETHYLENE GLYCOL 3350 17 GM PACKET. PO PRN (10:45)
--- NOTE | 2016-07-14 12:16 | PDOC2 ---
SHANTELLE CHRISTOPHER SHAPE HAND 07/14/16 1216: CONSULT Date of Consult Date of Consult DATE: 07/14/16 TIME: 12:06 Reason for Consult Reason for Consult: pancreatitis Referring Physician Referring Physician: Dr Malhotra Identification/Chief Complaint Chief Complaint abdominal pain Source Source: Chart review, Patient History of Present Illness Reason for Visit: Admitted with acute onset of epigastric pain that radiates to back. She has been seen in ER in May and again 5 days ago in ER. Both times they had recommended admission and she left AMA. In May lipase was 2996, normal on ER visit, this admission lipase 1100 She denies any pain or n/v currently. She reports this has been going on intermittently for a long time, usually resolves quickly. Denies any aggravating or alleviating factors. She does have a history of constipation Past Medical History Cardiovascular: HTN Psych: Anxiety, Bipolar, Depression Musculoskeletal: low back pain ENT: No pertinent hx Renal/: No pertinent hx, Other (kidney stones in the past) Endocrine: No pertinent hx Dermatology: No pertinent hx Past Surgical History Past Surgical History: No pertinent history Family History Family History: Diabetes, Hypertension, Kidney Disease Social History Quit ALCOHOL: rare Drugs: None Current Problem List Problem List Problems Medical Problems: (1) Accelerated hypertension Status: Acute (2) Acute pancreatitis Status: Acute Current Medications Current Medications Current Medications Labetalol HCl (Normodyne) 20 mg 1X ONCE IVP Last administered on 07/13/16 17: 10; Start 07/13/16 at 17:00; Stop 07/13/16 at 17:01; Status DC Ondansetron HCl (Zofran) 4 mg PRN Q8HRS PRN IV NAUSEA/VOMITING; Start 07/13/16 at 17:45; Stop 07/14/16 at 09:28; Status DC Fentanyl Citrate 50 mcg 50 mcg PRN Q2HR PRN IV PAIN Last administered on 20:05; Start 07/13/16 at 17:45; Stop 07/14/16 at 17:44 Sodium Chloride (Iv Sodium Chloride 0.9% 1000ml Bag) 1,000 ml @ 125 mls/hr Q8H IV Last administered on 07/14/16 10:00; Start 07/13/16 at 18:00; Stop 07/14/16 at 17:59 Labetalol HCl (Normodyne) 20 mg PRN Q2HR PRN IVP HYPERTENSION, SEE COMMENTS; Start 07/13/16 at 17:45 Hydralazine HCl 10 mg 10 mg PRN Q4HRS PRN IVP ELEVATED BP, SEE COMMENTS Last administered on 07/13/16 18:07; Start 07/13/16 at 17:45 Nicardipine HCl/ Sodium Chloride (Cardene/Iv Sodium Chloride 0.9% 250ml) 270 ml @ 0 mls/hr CONT PRN IV SEE I/O RECORD Last administered on 07/14/16 06:02; Start 07/13/16 at 19:30 Amlodipine Besylate (Norvasc) 10 mg DAILY PO Last administered on 07/14/16 08: 51; Start 07/14/16 at 09:00 Fluoxetine HCl (Prozac) 40 mg DAILY PO Last administered on 07/14/16 08:51; Start 07/14/16 at 09:00 Enoxaparin Sodium (Lovenox Per Pharmacy Prophylaxis Dosing) 1 each PRN DAILY PRN MC SEE COMMENTS; Start 07/14/16 at 00:15; Stop 07/14/16 at 09:58; Status DC Enoxaparin Sodium (Lovenox 30mg Syringe) 30 mg DAILY SQ Last administered on 08:54; Start 07/14/16 at 09:00; Stop 07/14/16 at 09:58; Status DC Ondansetron HCl (Zofran) 4 mg PRN Q6HRS PRN IV NAUSEA/VOMITING; Start 07/14/16 at 09:26 Amlodipine Besylate (Norvasc) 10 mg DAILY PO ; Start 07/15/16 at 09:00; Stop 02/21 at 09:00; Status DC Non-Formulary Medication 2 puff Q4HRS PRN INH SHORTNESS OF BREATH; Start at 09:30; Status UNV Non-Formulary Medication 1 cap DAILY PO ; Start 07/15/16 at 09:00; Stop at 09:00; Status DC Non-Formulary Medication 1 ml [id number] IM ; Start 10/12/16 at 09:00; Stop at 09:00; Status DC Albuterol Sulfate (Ventolin Neb Soln) 2.5 mg PRN Q4HRS PRN NEB SHORTNESS OF BREATH; Start 07/14/16 at 09:45 Enoxaparin Sodium (Lovenox 40mg Syringe) 40 mg DAILY SQ ; Start 07/15/16 at 09: 00 Polyethylene Glycol (miraLAX PACKET) 17 gm PRN DAILY PRN PO CONSTIPATION; Start 07/14/16 at 10:45 Famotidine (Pepcid) 20 mg QHS PO ; Start 07/14/16 at 21:00 Active Scripts Active Reported Amlodipine Besylate 10 Mg Tablet 10 Mg PO DAILY Lisinopril 40 Mg Tablet 1 Tab PO HS Prozac (Fluoxetine Hcl) 40 Mg Capsule 1 Cap PO DAILY Kenalog (Triamcinolone Acetonide) 100 Gm Aerosol 0.1 Gm TP Depo-Provera (Medroxyprogesterone Acetate) 150 Mg/1 Ml Disp.syrin 1 Ml IM [id number] Lisinopril 40 Mg Tablet 1 Tab PO DAILY Hydrochlorothiazide Tablet (Hydrochlorothiazide) 25 Mg Tablet 1 Tab PO DAILY Prozac (Fluoxetine Hcl) 40 Mg Capsule 1 Cap PO DAILY Amlodipine Besylate 10 Mg Tablet 10 Mg PO DAILY Ventolin Hfa Inhaler (Albuterol Sulfate) 18 Gm Hfa.aer.ad 2 Puff INH Q4HRS PRN Acetaminophen 500 Mg Tablet 500 Mg PO PRN Allergies Allergies: Coded Allergies: No Known Drug Allergies (Unverified , 12/08/15) ROS General: No: Chills, Other (fevers ) PSYCHOLOGICAL ROS: No: Anxiety, Depression Eyes: No Blurry vision, No Double vision HEENT: No: Heacaches, Sore Throat Hematological and Lymphatic: No: Bleeding Problems, Blood Clots Respiratory: No: Cough, Shortness of breath Gastrointestinal: Yes Other (see hpi) Genitourinary: No Dysuria, No Hematuria Musculoskeletal: No Joint Pain, No Muscle Pain Neurological: No Confusion, No Numbness/Tingling Skin: No Pruritus, No Rash Physical Exam General: Alert, Oriented X3, Cooperative, No acute distress HEENT: PERRLA, Mucous membr. moist/pink Lungs: Clear to auscultation, Normal air movement Heart: Normal S1, Normal S2, Other (tachy) Abdomen: Soft, No tenderness, No masses Extremities: No clubbing, No cyanosis Skin: No rashes, No breakdown Neuro: Normal speech, Sensation intact Psych/Mental Status: Mental status NL, Mood NL MUSCULOSKELETAL: No deformity, No swelling Vitals VITALS Vital Signs Date Time Temp Pulse Resp B/P Pulse Ox O2 Delivery O2 Flow Rate FiO2 07/14/16 08:51 112 163/88 07/14/16 08:00 Room Air 07/14/16 07:00 98.1 16 96 98.1 Labs Labs Laboratory Tests Test 07/13/16 15:00 07/13/16 15:45 07/14/16 04:35 Urine Collection Type Unknown Urine Color Yellow Urine Clarity Clear Urine pH 7.5 Urine Specific [place] 1.015 Urine Protein >=300mg/dL (NEG-TRACE) Urine Glucose (UA) Negativemg/dL (NEG) Urine Ketones (Stick) Negativemg/dL (NEG) Urine Blood Trace (NEG) Urine Nitrite Negative (NEG) Urine Bilirubin Negative (NEG) Urine Urobilinogen Dipstick 0.2mg/dL (0.2 mg/dL) Urine Leukocyte Esterase Negative (NEG) Urine RBC 6-10/HPF (0-2) Urine WBC 1-4/HPF (0-4) Urine Squamous Epithelial Cells Mod/LPF Urine Bacteria 0/HPF (0-FEW) Urine Mucus Slight/LPF White Blood Count 12.5x10^3/uL (4.0-11.0) 11.4x10^3/uL (4.0-11.0) Red Blood Count 4.21x10^6/uL (3.50-5.40) 3.96x10^6/uL (3.50-5.40) Hemoglobin 12.0g/dL (12.0-15.5) 11.3g/dL (12.0-15.5) Hematocrit 36.7% (36.0-47.0) 34.0% (36.0-47.0) Mean Corpuscular Volume 87fL (79-100) 86fL (79-100) Mean Corpuscular Hemoglobin 29pg (25-35) 29pg (25-35) Mean Corpuscular Hemoglobin Concent 33g/dL (31-37) 33g/dL (31-37) Red Cell Distribution Width 15.5% (11.5-14.5) 16.0% (11.5-14.5) Platelet Count 209x10^3/uL (140-400) 231x10^3/uL (140-400) Neutrophils (%) (Auto) 79% (31-73) 73% (31-73) Lymphocytes (%) (Auto) 12% (24-48) 18% (24-48) Monocytes (%) (Auto) 6% (0-9) 5% (0-9) Eosinophils (%) (Auto) 3% (0-3) 3% (0-3) Basophils (%) (Auto) 1% (0-3) 1% (0-3) Neutrophils # (Auto) 9.9x10^3uL (1.8-7.7) 8.3x10^3uL (1.8-7.7) Lymphocytes # (Auto) 1.5x10^3/uL (1.0-4.8) 2.0x10^3/uL (1.0-4.8) Monocytes # (Auto) 0.7x10^3/uL (0.0-1.1) 0.6x10^3/uL (0.0-1.1) Eosinophils # (Auto) 0.4x10^3/uL (0.0-0.7) 0.4x10^3/uL (0.0-0.7) Basophils # (Auto) 0.1x10^3/uL (0.0-0.2) 0.1x10^3/uL (0.0-0.2) Sodium Level 142mmol/L (136-145) 144mmol/L (136-145) Potassium Level 4.5mmol/L (3.5-5.1) 4.7mmol/L (3.5-5.1) Chloride Level 108mmol/L (98-107) 110mmol/L (98-107) Carbon Dioxide Level 25mmol/L (21-32) 22mmol/L (21-32) Anion Gap 9 (6-14) 12 (6-14) Blood Urea Nitrogen 25mg/dL (7-20) 21mg/dL (7-20) Creatinine 2.7mg/dL (0.6-1.0) 2.3mg/dL (0.6-1.0) Estimated GFR (Cockcroft-Gault) 19.9 24.0 BUN/Creatinine Ratio 9 (6-20) Glucose Level 89mg/dL (70-99) 94mg/dL (70-99) Calcium Level 8.9mg/dL (8.5-10.1) 9.0mg/dL (8.5-10.1) Total Bilirubin 0.2mg/dL (0.2-1.0) Aspartate Amino Transf (AST/SGOT) 23U/L (15-37) Alanine Aminotransferase (ALT/SGPT) 31U/L (14-59) Alkaline Phosphatase 113U/L (46-116) Total Protein 6.8g/dL (6.4-8.2) Albumin 2.3g/dL (3.4-5.0) Albumin/Globulin Ratio 0.5 (1.0-1.7) Triglycerides Level 131mg/dL (0-150) Cholesterol Level 245mg/dL (0-200) LDL Cholesterol, Calculated 176mg/dL (0-100) VLDL Cholesterol, Calculated 26mg/dL (0-40) HDL Cholesterol 43mg/dL (40-60) Cholesterol/HDL Ratio 5.7 Lipase 1160U/L (73-393) Thyroid Stimulating Hormone (TSH) 1.605uIU/mL (0.358-3.74) Free Thyroxine 1.17ng/dL (0.76-1.46) Free Triiodothyronine (T3) pg/mL 2.30pg/mL (2.18-3.98) Laboratory Tests Test 07/13/16 15:00 07/13/16 15:45 07/14/16 04:35 Urine Collection Type Unknown Urine Color Yellow Urine Clarity Clear Urine pH 7.5 Urine Specific [place] 1.015 Urine Protein >=300mg/dL (NEG-TRACE) Urine Glucose (UA) Negativemg/dL (NEG) Urine Ketones (Stick) Negativemg/dL (NEG) Urine Blood Trace (NEG) Urine Nitrite Negative (NEG) Urine Bilirubin Negative (NEG) Urine Urobilinogen Dipstick 0.2mg/dL (0.2 mg/dL) Urine Leukocyte Esterase Negative (NEG) Urine RBC 6-10/HPF (0-2) Urine WBC 1-4/HPF (0-4) Urine Squamous Epithelial Cells Mod/LPF Urine Bacteria 0/HPF (0-FEW) Urine Mucus Slight/LPF White Blood Count 12.5x10^3/uL (4.0-11.0) 11.4x10^3/uL (4.0-11.0) Red Blood Count 4.21x10^6/uL (3.50-5.40) 3.96x10^6/uL (3.50-5.40) Hemoglobin 12.0g/dL (12.0-15.5) 11.3g/dL (12.0-15.5) Hematocrit 36.7% (36.0-47.0) 34.0% (36.0-47.0) Mean Corpuscular Volume 87fL (79-100) 86fL (79-100) Mean Corpuscular Hemoglobin 29pg (25-35) 29pg (25-35) Mean Corpuscular Hemoglobin Concent 33g/dL (31-37) 33g/dL (31-37) Red Cell Distribution Width 15.5% (11.5-14.5) 16.0% (11.5-14.5) Platelet Count 209x10^3/uL (140-400) 231x10^3/uL (140-400) Neutrophils (%) (Auto) 79% (31-73) 73% (31-73) Lymphocytes (%) (Auto) 12% (24-48) 18% (24-48) Monocytes (%) (Auto) 6% (0-9) 5% (0-9) Eosinophils (%) (Auto) 3% (0-3) 3% (0-3) Basophils (%) (Auto) 1% (0-3) 1% (0-3) Neutrophils # (Auto) 9.9x10^3uL (1.8-7.7) 8.3x10^3uL (1.8-7.7) Lymphocytes # (Auto) 1.5x10^3/uL (1.0-4.8) 2.0x10^3/uL (1.0-4.8) Monocytes # (Auto) 0.7x10^3/uL (0.0-1.1) 0.6x10^3/uL (0.0-1.1) Eosinophils # (Auto) 0.4x10^3/uL (0.0-0.7) 0.4x10^3/uL (0.0-0.7) Basophils # (Auto) 0.1x10^3/uL (0.0-0.2) 0.1x10^3/uL (0.0-0.2) Sodium Level 142mmol/L (136-145) 144mmol/L (136-145) Potassium Level 4.5mmol/L (3.5-5.1) 4.7mmol/L (3.5-5.1) Chloride Level 108mmol/L (98-107) 110mmol/L (98-107) Carbon Dioxide Level 25mmol/L (21-32) 22mmol/L (21-32) Anion Gap 9 (6-14) 12 (6-14) Blood Urea Nitrogen 25mg/dL (7-20) 21mg/dL (7-20) Creatinine 2.7mg/dL (0.6-1.0) 2.3mg/dL (0.6-1.0) Estimated GFR (Cockcroft-Gault) 19.9 24.0 BUN/Creatinine Ratio 9 (6-20) Glucose Level 89mg/dL (70-99) 94mg/dL (70-99) Calcium Level 8.9mg/dL (8.5-10.1) 9.0mg/dL (8.5-10.1) Total Bilirubin 0.2mg/dL (0.2-1.0) Aspartate Amino Transf (AST/SGOT) 23U/L (15-37) Alanine Aminotransferase (ALT/SGPT) 31U/L (14-59) Alkaline Phosphatase 113U/L (46-116) Total Protein 6.8g/dL (6.4-8.2) Albumin 2.3g/dL (3.4-5.0) Albumin/Globulin Ratio 0.5 (1.0-1.7) Triglycerides Level 131mg/dL (0-150) Cholesterol Level 245mg/dL (0-200) LDL Cholesterol, Calculated 176mg/dL (0-100) VLDL Cholesterol, Calculated 26mg/dL (0-40) HDL Cholesterol 43mg/dL (40-60) Cholesterol/HDL Ratio 5.7 Lipase 1160U/L (73-393) Thyroid Stimulating Hormone (TSH) 1.605uIU/mL (0.358-3.74) Free Thyroxine 1.17ng/dL (0.76-1.46) Free Triiodothyronine (T3) pg/mL 2.30pg/mL (2.18-3.98) Assessment/Plan Assessment/Plan pancreatitis, in May and this admission no evidence of pancreatitis 3/4 ER visit US in past has show sludge in GB ELENA malignant HTN, on drip currently normal triglycerides will review with Dr Isidro, consider gb sludge source of pancreatitis PORFIRIO ISIDRO MD 07/14/16 1451: CONSULT Allergies Allergies: Coded Allergies: No Known Drug Allergies (Unverified , 12/08/15) Assessment/Plan Assessment/Plan addendum pt signed out AMA before I had an opportunity to see her. SHANTELLE CHRISTOPHER APRN Jul 14, 2016 12:16 PORFIRIO ISIDRO MD Jul 14, 2016 14:51
--- NOTE | 2016-07-14 14:01 | PDOC2 ---
CONSULT Date of Consult Date of Consult DATE: 07/14/16 TIME: 14:00 Reason for Consult Reason for Consult: HTN Identification/Chief Complaint Chief Complaint Abdominal Pain Past Medical History Cardiovascular: HTN Psych: Anxiety, Bipolar, Depression Musculoskeletal: low back pain ENT: No pertinent hx Renal/: No pertinent hx, Other (kidney stones in the past) Endocrine: No pertinent hx Dermatology: No pertinent hx Past Surgical History Past Surgical History: No pertinent history Family History Family History: Diabetes, Hypertension, Kidney Disease Social History Quit ALCOHOL: rare Drugs: None Current Problem List Problem List Problems Medical Problems: (1) Accelerated hypertension Status: Acute (2) Acute pancreatitis Status: Acute Current Medications Current Medications Current Medications Labetalol HCl (Normodyne) 20 mg 1X ONCE IVP Last administered on 07/13/16 17: 10; Start 07/13/16 at 17:00; Stop 07/13/16 at 17:01; Status DC Ondansetron HCl (Zofran) 4 mg PRN Q8HRS PRN IV NAUSEA/VOMITING; Start 07/13/16 at 17:45; Stop 07/14/16 at 09:28; Status DC Fentanyl Citrate 50 mcg 50 mcg PRN Q2HR PRN IV PAIN Last administered on 20:05; Start 07/13/16 at 17:45; Stop 07/14/16 at 17:44 Sodium Chloride (Iv Sodium Chloride 0.9% 1000ml Bag) 1,000 ml @ 125 mls/hr Q8H IV Last administered on 07/14/16 10:00; Start 07/13/16 at 18:00; Stop 07/14/16 at 17:59 Labetalol HCl (Normodyne) 20 mg PRN Q2HR PRN IVP HYPERTENSION, SEE COMMENTS; Start 07/13/16 at 17:45 Hydralazine HCl 10 mg 10 mg PRN Q4HRS PRN IVP ELEVATED BP, SEE COMMENTS Last administered on 07/13/16 18:07; Start 07/13/16 at 17:45 Nicardipine HCl/ Sodium Chloride (Cardene/Iv Sodium Chloride 0.9% 250ml) 270 ml @ 0 mls/hr CONT PRN IV SEE I/O RECORD Last administered on 07/14/16 06:02; Start 07/13/16 at 19:30 Amlodipine Besylate (Norvasc) 10 mg DAILY PO Last administered on 07/14/16 08: 51; Start 07/14/16 at 09:00 Fluoxetine HCl (Prozac) 40 mg DAILY PO Last administered on 07/14/16 08:51; Start 07/14/16 at 09:00 Enoxaparin Sodium (Lovenox Per Pharmacy Prophylaxis Dosing) 1 each PRN DAILY PRN MC SEE COMMENTS; Start 07/14/16 at 00:15; Stop 07/14/16 at 09:58; Status DC Enoxaparin Sodium (Lovenox 30mg Syringe) 30 mg DAILY SQ Last administered on 08:54; Start 07/14/16 at 09:00; Stop 07/14/16 at 09:58; Status DC Ondansetron HCl (Zofran) 4 mg PRN Q6HRS PRN IV NAUSEA/VOMITING; Start 07/14/16 at 09:26 Amlodipine Besylate (Norvasc) 10 mg DAILY PO ; Start 07/15/16 at 09:00; Stop 02/21 at 09:00; Status DC Non-Formulary Medication 2 puff Q4HRS PRN INH SHORTNESS OF BREATH; Start at 09:30; Status UNV Non-Formulary Medication 1 cap DAILY PO ; Start 07/15/16 at 09:00; Stop at 09:00; Status DC Non-Formulary Medication 1 ml [id number] IM ; Start 10/12/16 at 09:00; Stop at 09:00; Status DC Albuterol Sulfate (Ventolin Neb Soln) 2.5 mg PRN Q4HRS PRN NEB SHORTNESS OF BREATH; Start 07/14/16 at 09:45 Enoxaparin Sodium (Lovenox 40mg Syringe) 40 mg DAILY SQ ; Start 07/15/16 at 09: 00 Polyethylene Glycol (miraLAX PACKET) 17 gm PRN DAILY PRN PO CONSTIPATION; Start 07/14/16 at 10:45 Famotidine (Pepcid) 20 mg QHS PO ; Start 07/14/16 at 21:00 Active Scripts Active Reported Amlodipine Besylate 10 Mg Tablet 10 Mg PO DAILY Lisinopril 40 Mg Tablet 1 Tab PO HS Prozac (Fluoxetine Hcl) 40 Mg Capsule 1 Cap PO DAILY Kenalog (Triamcinolone Acetonide) 100 Gm Aerosol 0.1 Gm TP Depo-Provera (Medroxyprogesterone Acetate) 150 Mg/1 Ml Disp.syrin 1 Ml IM [id number] Lisinopril 40 Mg Tablet 1 Tab PO DAILY Hydrochlorothiazide Tablet (Hydrochlorothiazide) 25 Mg Tablet 1 Tab PO DAILY Prozac (Fluoxetine Hcl) 40 Mg Capsule 1 Cap PO DAILY Amlodipine Besylate 10 Mg Tablet 10 Mg PO DAILY Ventolin Hfa Inhaler (Albuterol Sulfate) 18 Gm Hfa.aer.ad 2 Puff INH Q4HRS PRN Acetaminophen 500 Mg Tablet 500 Mg PO PRN Allergies Allergies: Coded Allergies: No Known Drug Allergies (Unverified , 12/08/15) Vitals VITALS Vital Signs Date Time Temp Pulse Resp B/P Pulse Ox O2 Delivery O2 Flow Rate FiO2 07/14/16 12:00 98.1 111 165/88 98.1 07/14/16 11:00 16 94 Room Air Labs Labs Laboratory Tests Test 07/13/16 15:00 07/13/16 15:45 07/14/16 04:35 Urine Collection Type Unknown Urine Color Yellow Urine Clarity Clear Urine pH 7.5 Urine Specific [place] 1.015 Urine Protein >=300mg/dL (NEG-TRACE) Urine Glucose (UA) Negativemg/dL (NEG) Urine Ketones (Stick) Negativemg/dL (NEG) Urine Blood Trace (NEG) Urine Nitrite Negative (NEG) Urine Bilirubin Negative (NEG) Urine Urobilinogen Dipstick 0.2mg/dL (0.2 mg/dL) Urine Leukocyte Esterase Negative (NEG) Urine RBC 6-10/HPF (0-2) Urine WBC 1-4/HPF (0-4) Urine Squamous Epithelial Cells Mod/LPF Urine Bacteria 0/HPF (0-FEW) Urine Mucus Slight/LPF White Blood Count 12.5x10^3/uL (4.0-11.0) 11.4x10^3/uL (4.0-11.0) Red Blood Count 4.21x10^6/uL (3.50-5.40) 3.96x10^6/uL (3.50-5.40) Hemoglobin 12.0g/dL (12.0-15.5) 11.3g/dL (12.0-15.5) Hematocrit 36.7% (36.0-47.0) 34.0% (36.0-47.0) Mean Corpuscular Volume 87fL (79-100) 86fL (79-100) Mean Corpuscular Hemoglobin 29pg (25-35) 29pg (25-35) Mean Corpuscular Hemoglobin Concent 33g/dL (31-37) 33g/dL (31-37) Red Cell Distribution Width 15.5% (11.5-14.5) 16.0% (11.5-14.5) Platelet Count 209x10^3/uL (140-400) 231x10^3/uL (140-400) Neutrophils (%) (Auto) 79% (31-73) 73% (31-73) Lymphocytes (%) (Auto) 12% (24-48) 18% (24-48) Monocytes (%) (Auto) 6% (0-9) 5% (0-9) Eosinophils (%) (Auto) 3% (0-3) 3% (0-3) Basophils (%) (Auto) 1% (0-3) 1% (0-3) Neutrophils # (Auto) 9.9x10^3uL (1.8-7.7) 8.3x10^3uL (1.8-7.7) Lymphocytes # (Auto) 1.5x10^3/uL (1.0-4.8) 2.0x10^3/uL (1.0-4.8) Monocytes # (Auto) 0.7x10^3/uL (0.0-1.1) 0.6x10^3/uL (0.0-1.1) Eosinophils # (Auto) 0.4x10^3/uL (0.0-0.7) 0.4x10^3/uL (0.0-0.7) Basophils # (Auto) 0.1x10^3/uL (0.0-0.2) 0.1x10^3/uL (0.0-0.2) Sodium Level 142mmol/L (136-145) 144mmol/L (136-145) Potassium Level 4.5mmol/L (3.5-5.1) 4.7mmol/L (3.5-5.1) Chloride Level 108mmol/L (98-107) 110mmol/L (98-107) Carbon Dioxide Level 25mmol/L (21-32) 22mmol/L (21-32) Anion Gap 9 (6-14) 12 (6-14) Blood Urea Nitrogen 25mg/dL (7-20) 21mg/dL (7-20) Creatinine 2.7mg/dL (0.6-1.0) 2.3mg/dL (0.6-1.0) Estimated GFR (Cockcroft-Gault) 19.9 24.0 BUN/Creatinine Ratio 9 (6-20) Glucose Level 89mg/dL (70-99) 94mg/dL (70-99) Calcium Level 8.9mg/dL (8.5-10.1) 9.0mg/dL (8.5-10.1) Total Bilirubin 0.2mg/dL (0.2-1.0) Aspartate Amino Transf (AST/SGOT) 23U/L (15-37) Alanine Aminotransferase (ALT/SGPT) 31U/L (14-59) Alkaline Phosphatase 113U/L (46-116) Total Protein 6.8g/dL (6.4-8.2) Albumin 2.3g/dL (3.4-5.0) Albumin/Globulin Ratio 0.5 (1.0-1.7) Triglycerides Level 131mg/dL (0-150) Cholesterol Level 245mg/dL (0-200) LDL Cholesterol, Calculated 176mg/dL (0-100) VLDL Cholesterol, Calculated 26mg/dL (0-40) HDL Cholesterol 43mg/dL (40-60) Cholesterol/HDL Ratio 5.7 Lipase 1160U/L (73-393) Thyroid Stimulating Hormone (TSH) 1.605uIU/mL (0.358-3.74) Free Thyroxine 1.17ng/dL (0.76-1.46) Free Triiodothyronine (T3) pg/mL 2.30pg/mL (2.18-3.98) Laboratory Tests Test 07/13/16 15:00 07/13/16 15:45 07/14/16 04:35 Urine Collection Type Unknown Urine Color Yellow Urine Clarity Clear Urine pH 7.5 Urine Specific [place] 1.015 Urine Protein >=300mg/dL (NEG-TRACE) Urine Glucose (UA) Negativemg/dL (NEG) Urine Ketones (Stick) Negativemg/dL (NEG) Urine Blood Trace (NEG) Urine Nitrite Negative (NEG) Urine Bilirubin Negative (NEG) Urine Urobilinogen Dipstick 0.2mg/dL (0.2 mg/dL) Urine Leukocyte Esterase Negative (NEG) Urine RBC 6-10/HPF (0-2) Urine WBC 1-4/HPF (0-4) Urine Squamous Epithelial Cells Mod/LPF Urine Bacteria 0/HPF (0-FEW) Urine Mucus Slight/LPF White Blood Count 12.5x10^3/uL (4.0-11.0) 11.4x10^3/uL (4.0-11.0) Red Blood Count 4.21x10^6/uL (3.50-5.40) 3.96x10^6/uL (3.50-5.40) Hemoglobin 12.0g/dL (12.0-15.5) 11.3g/dL (12.0-15.5) Hematocrit 36.7% (36.0-47.0) 34.0% (36.0-47.0) Mean Corpuscular Volume 87fL (79-100) 86fL (79-100) Mean Corpuscular Hemoglobin 29pg (25-35) 29pg (25-35) Mean Corpuscular Hemoglobin Concent 33g/dL (31-37) 33g/dL (31-37) Red Cell Distribution Width 15.5% (11.5-14.5) 16.0% (11.5-14.5) Platelet Count 209x10^3/uL (140-400) 231x10^3/uL (140-400) Neutrophils (%) (Auto) 79% (31-73) 73% (31-73) Lymphocytes (%) (Auto) 12% (24-48) 18% (24-48) Monocytes (%) (Auto) 6% (0-9) 5% (0-9) Eosinophils (%) (Auto) 3% (0-3) 3% (0-3) Basophils (%) (Auto) 1% (0-3) 1% (0-3) Neutrophils # (Auto) 9.9x10^3uL (1.8-7.7) 8.3x10^3uL (1.8-7.7) Lymphocytes # (Auto) 1.5x10^3/uL (1.0-4.8) 2.0x10^3/uL (1.0-4.8) Monocytes # (Auto) 0.7x10^3/uL (0.0-1.1) 0.6x10^3/uL (0.0-1.1) Eosinophils # (Auto) 0.4x10^3/uL (0.0-0.7) 0.4x10^3/uL (0.0-0.7) Basophils # (Auto) 0.1x10^3/uL (0.0-0.2) 0.1x10^3/uL (0.0-0.2) Sodium Level 142mmol/L (136-145) 144mmol/L (136-145) Potassium Level 4.5mmol/L (3.5-5.1) 4.7mmol/L (3.5-5.1) Chloride Level 108mmol/L (98-107) 110mmol/L (98-107) Carbon Dioxide Level 25mmol/L (21-32) 22mmol/L (21-32) Anion Gap 9 (6-14) 12 (6-14) Blood Urea Nitrogen 25mg/dL (7-20) 21mg/dL (7-20) Creatinine 2.7mg/dL (0.6-1.0) 2.3mg/dL (0.6-1.0) Estimated GFR (Cockcroft-Gault) 19.9 24.0 BUN/Creatinine Ratio 9 (6-20) Glucose Level 89mg/dL (70-99) 94mg/dL (70-99) Calcium Level 8.9mg/dL (8.5-10.1) 9.0mg/dL (8.5-10.1) Total Bilirubin 0.2mg/dL (0.2-1.0) Aspartate Amino Transf (AST/SGOT) 23U/L (15-37) Alanine Aminotransferase (ALT/SGPT) 31U/L (14-59) Alkaline Phosphatase 113U/L (46-116) Total Protein 6.8g/dL (6.4-8.2) Albumin 2.3g/dL (3.4-5.0) Albumin/Globulin Ratio 0.5 (1.0-1.7) Triglycerides Level 131mg/dL (0-150) Cholesterol Level 245mg/dL (0-200) LDL Cholesterol, Calculated 176mg/dL (0-100) VLDL Cholesterol, Calculated 26mg/dL (0-40) HDL Cholesterol 43mg/dL (40-60) Cholesterol/HDL Ratio 5.7 Lipase 1160U/L (73-393) Thyroid Stimulating Hormone (TSH) 1.605uIU/mL (0.358-3.74) Free Thyroxine 1.17ng/dL (0.76-1.46) Free Triiodothyronine (T3) pg/mL 2.30pg/mL (2.18-3.98) Assessment/Plan Assessment/Plan Pt leaving AMA at this time, recommended follow up as outpatient in 2 weeks. JED SIN MD Jul 14, 2016 14:01
--- NOTE | 2016-07-14 14:36 | CARD ---
APPROVED REPORT EXAM: Two-dimensional and M-mode echocardiogram with Doppler and color Doppler. Other Information Quality : Average Rhythm : NSR INDICATION Hypertension/HCVD 2D DIMENSIONS RVDd1.5 (2.9-3.5cm)Left Atrium(2D)3.4 (1.6-4.0cm) IVSd1.1 (0.7-1.1cm)Aortic Root(2D)2.9 (2.0-3.7cm) LVDd4.7 (3.9-5.9cm)LVOT Diameter2.0 (1.8-2.4cm) PWd1.1 (0.7-1.1cm)LVDs3.0 (2.5-4.0cm) FS (%) 34.7 %SV71.0 ml LVEF(%)65.0 (>50%) Aortic Valve AoV Peak Les.193.9cm/sAoV VTI30.7cm AO Peak GR.15.0mmHgLVOT VTI 17.41cm AO Mean GR.9mmHgAVA (VTI)1.90cm2 Mitral Valve MV E Rajaolkm449.7cm/sMV E Peak Gr.6mmHg MV DECEL [id number] A Nthckxuq091.0cm/s MV E Mean Gr.3mmHgE/A Ratio0.9 MV A [id number] TDI Lateral E' P. V8.29cm/sMedial E' P. V6.71cm/s E/Lateral E'12.5E/Medial E'15.5 LEFT VENTRICLE The left ventricle is normal size. There is concentric LVF Left ventricle systolic function is normal . The Ejection Fraction is 65%. There is normal LV segmental wall motion. The left ventricular diasto lic function and filling is normal for age. RIGHT VENTRICLE The right ventricle is normal size. The right ventricular systolic function is normal. ATRIA The left atrium size is normal. The right atrium size is normal. The interatrial septum is intact wit h no evidence for an atrial septal defect or patent foramen ovale as noted on 2-D or Doppler imaging. AORTIC VALVE The aortic valve is normal in structure and function. The aortic valve is trileaflet. Doppler and Col or Flow revealed no significant aortic regurgitation. There is no significant aortic valvular stenosi s. MITRAL VALVE Mitral annular calcification is mild. There is no mitral valve stenosis. Doppler and Color Flow revea led no mitral valve regurgitation noted. TRICUSPID VALVE The tricuspid valve is normal in structure and function. Doppler and Color Flow revealed no tricuspid valve regurgitation noted. Unable to estimate PA pressure. There is no tricuspid valve stenosis. PULMONIC VALVE The pulmonic valve is not well visualized. Doppler and Color Flow revealed no pulmonic valvular regur gitation. There is no pulmonic valvular stenosis. GREAT VESSELS The aortic root is normal in size. The IVC is normal in size and collapses >50% with inspiration. PERICARDIAL EFFUSION There is no evidence of significant pericardial effusion. Critical Notification Critical Value: No <Conclusion> There is concentric LVF Left ventricle systolic function is normal. The Ejection Fraction is 65%. The left atrium size is normal. The aortic valve is normal in structure and function. The aortic valve is trileaflet. Mitral annular calcification is mild. The tricuspid valve is normal in structure and function. The pulmonic valve is not well visualized. There is no evidence of significant pericardial effusion.
[2016-07-14] MEDS ORDERED: FAMOTIDINE 20 MG TABLET. PO SCH (21:00)
--- NOTE | 2016-07-15 00:13 | CONS ---
DATE OF CONSULTATION: PRIMARY PHYSICIAN: Dr. Bernadette Weaver REASON FOR CONSULTATION: Acute renal failure and malignant hypertension. HISTORY OF PRESENT ILLNESS: The patient is a pleasant 36-year-old young lady with a history of bipolar depression in the past. She has not taken any ____ that she remembers. She has had kidney stones in the past, but has passed all of them by her reports. She was in the ER recently for similar complaints of abdominal pain and had a sonogram done on 05/13/2016, which showed right kidney without hydronephrosis or mass. She did have a mild fatty infiltration of her liver then. She had another sonogram done recently, which shows echogenic appearing right kidney. These all have been due to right upper quadrant pathology and the left kidney has not been evaluated at that time. Sonograms have been negative for cholelithiasis. At her previous creatinine here in our facility was 1.7 in 12/2015. She now presents with a creatinine of 2.7. She is noted to have a UA with significant proteinuria noted and trace amount of blood, 6-10 rbc's. She does take 100 mg of ibuprofen every 6 hours for pain when she needs it. She presented with a lipase of 1160 and we were asked to see her for further evaluation. For rest of the details, see electronic records ____. TAE SOARES MD DR: PAVEL/júnior JOB#: [id number] / [id number]
[2016-07-15] MEDS ORDERED: FLUOXETINE HCL PO SCH (09:00)
[2016-07-15] MEDS ORDERED: AMLODIPINE BESYLATE 10 MG TABLET PO SCH (09:00)
[2016-07-15] MEDS ORDERED: ENOXAPARIN 40 MG/0.4 ML DISP.SYRIN. SQ SCH (09:00)
[2016-10-12] MEDS ORDERED: NON FORMULARY ITEM (Medroxyprogesterone Acetate (Depo-Provera) 1 ML) IM SCH (09:00)
== END 2016-07-14 16:12 | disposition left against medical advice (07) | DRG 438 ==
LOC: ER 14:52 → CVICU 17:38
PROVIDERS: ADMIT Internal Medicine; ATTEND Internal Medicine
DX: K85.90 Acute pancreatitis without necrosis or infection, unspecified (principal); R65.11 Systemic inflammatory response syndrome (SIRS) of non-infectious origin with acute organ dysfunction; R65.10 Systemic inflammatory response syndrome (SIRS) of non-infectious origin without acute organ dysfunction; E44.0 Moderate protein-calorie malnutrition; N17.9 Acute kidney failure, unspecified; N20.0 Calculus of kidney; N18.3 Chronic kidney disease, stage 3 (moderate); I12.9 Hypertensive chronic kidney disease with stage 1 through stage 4 chronic kidney disease, or unspecified chronic kidney disease; E66.9 Obesity, unspecified; F31.9 Bipolar disorder, unspecified; F41.9 Anxiety disorder, unspecified; F81.9 Developmental disorder of scholastic skills, unspecified; G89.29 Other chronic pain; J45.909 Unspecified asthma, uncomplicated; K59.00 Constipation, unspecified; K76.0 Fatty (change of) liver, not elsewhere classified; Z53.21 Procedure and treatment not carried out due to patient leaving prior to being seen by health care provider; K80.20 Calculus of gallbladder without cholecystitis without obstruction; K82.8 Other specified diseases of gallbladder; N28.1 Cyst of kidney, acquired; Z82.49 Family history of ischemic heart disease and other diseases of the circulatory system; Z79.899 Other long term (current) drug therapy; Z68.39 Body mass index [BMI] 39.0-39.9, adult; Z83.3 Family history of diabetes mellitus; Z87.442 Personal history of urinary calculi; Z79.82 Long term (current) use of aspirin
CPT/HCPCS: 36415; 76705; 76770; 80048; 80053; 80061; 81001; 83690; 84439; 84443; 84481; 85027; 93306; 96374; 96375; J0360; J1650; J3010; J3490; J7030; J7050; 99285-25

== ENCOUNTER 2016-07-22 00:02 | Inpatient (IN) | payer OTHER ==
[~2016-07-22] VITALS: Ht 157.5 cm; Wt 97.1 kg
[2016-07-22 00:34] LABS: BASO # 0.1 x10^3/uL (0.0-0.2); BASO % 1 % (0-3); EOS % 5 % (0-3); HEMATOCRIT 36.5 % (36.0-47.0); HEMOGLOBIN 11.9 g/dL (12.0-15.5); LYMPH % 23 % (24-48); MEAN CORPUSCULAR HEMOGLOBIN 29 pg (25-35); MEAN CORPUSCULAR HGB CONC 33 g/dL (31-37); MEAN CORPUSCULAR VOLUME 88 fL (79-100); MONO % 5 % (0-9); NEUT % 67 % (31-73); PLATELET COUNT 318 x10^3/uL (140-400); RED BLOOD COUNT 4.17 x10^6/uL (3.50-5.40); RED CELL DISTRIBUTION WIDTH 15.5 % (11.5-14.5); WHITE BLOOD COUNT 8.8 x10^3/uL (4.0-11.0)
[2016-07-22 00:45] LABS: CALCIUM 9.3 mg/dL (8.5-10.1); CREATININE 2.4 mg/dL (0.6-1.0); GFR 22.8; POTASSIUM 3.9 mmol/L (3.5-5.1)
[2016-07-22 00:50] LABS: ALBUMIN 2.7 g/dL (3.4-5.0); ALBUMIN/GLOBULIN RATIO 0.6 (1.0-1.7); TOTAL BILIRUBIN 0.2 mg/dL (0.2-1.0); TOTAL PROTEIN 7.5 g/dL (6.4-8.2)
[2016-07-22] MEDS ORDERED: FAMOTIDINE 20 MG/2 ML VIAL IVP ONE (01:00)
[2016-07-22] MEDS ORDERED: LABETALOL 20 MG/4 ML DISP.SYRIN. IVP ONE ×2 (01:00→02:00)
[2016-07-22] MEDS ORDERED: LIDO:MAALOX:DONNATAL 1:1:1 15 ML SINGLE DOSE SWSW ONE (01:00)
[2016-07-22] MEDS ORDERED: IV NORMAL SALINE 500ML BAG 500 ML IV ONE (01:00)
[2016-07-22 01:27] LABS: BILIRUBIN,URINE NEGATIVE (NEG); GLUCOSE,URINE NEGATIVE (NEG); NITRITE,URINE NEGATIVE (NEG); PROTEIN,URINE >=300 mg/dL (NEG-TRACE); UROBILINOGEN,URINE 0.2 mg/dL (0.2 mg/dL)
[2016-07-22 01:33] LABS: BACTERIA,URINE 0 /HPF (0-FEW); SQUAMOUS EPITHELIAL CELL,UR FEW /LPF; WBC,URINE OCC /HPF (0-4)
[2016-07-22] MEDS ORDERED: ONDANSETRON PF 4 MG/2 ML VIAL. IV PRN (02:15)
--- NOTE | 2016-07-22 02:17 | PHYS DOC ---
Past Medical History Past Medical History: Asthma, Bipolar, Hypertension, Pancreatitis, Other Additional Past Medical Histor: learning disability Past Surgical History: No Surgical History Alcohol Use: Occasionally Drug Use: None Adult General Chief Complaint Chief Complaint: ABDOMINAL PAIN HPI HPI 36-year-old female presenting to the emergency department today with epigastric abdominal pain that radiates to her back. She reports it being sharp moderate intermittent and associated with nausea and a few episodes of emesis. She denies blood in her vomitus. It is nonbilious. She has a history of pancreatitis. Review of systems is negative for chest pain shortness of breath abdominal pain. Positive for nausea vomiting. All other review of systems is negative unless otherwise noted in history of present illness. Review of Systems Review of Systems SEE ABOVE. Current Medications Current Medications Current Medications Medications (Trade) Dose Ordered Sig/Bety Start Time Stop Time Status Last Admin Dose Admin Famotidine 20 mg 20 mg 1X ONCE 07/22/16 01:00 07/22/16 01:01 DC 07/22/16 00:42 20 MG Labetalol HCl (Normodyne) 20 mg 1X ONCE 07/22/16 02:00 07/22/16 02:01 DC 07/22/16 01:43 20 MG Multi-Ingredient Mouthwash/Gargle (Gi Cocktail Single Dose) 15 ml 1X ONCE 07/22/16 01:00 07/22/16 01:01 DC 07/22/16 00:42 15 ML Sodium Chloride (Iv Sodium Chloride 0.9% 500ml Bag) 500 ml @ 500 mls/hr 1X ONCE 07/22/16 01:00 07/22/16 01:59 DC 07/22/16 00:43 500 MLS/HR Allergies Allergies Allergies Coded Allergies Type Severity Reaction Last Updated Verified No Known Drug Allergies 12/08/15 No Physical Exam Physical Exam Constitutional: Well developed, well nourished, no acute distress, non-toxic appearance. HENT: Normocephalic, atraumatic, bilateral external ears normal, oropharynx moist, no oral exudates, nose normal. [] Eyes: PERRLA, EOMI, conjunctiva normal, no discharge. [] Neck: Normal range of motion, no tenderness, supple, no stridor. Cardiovascular:Heart rate regular rhythm, no murmur [] Lungs & Thorax: Bilateral breath sounds clear to auscultation [] Abdomen: Mild tenderness in the epigastrium without rebound tenderness or guarding present. Negative McBurney's point. Negative Chang sign. Skin: Warm, dry, no erythema, no rash. [] Back: No tenderness, no CVA tenderness. Extremities: No tenderness, no cyanosis, no clubbing, ROM intact, no edema. [] Neurologic: Alert and oriented X 3, normal motor function, normal sensory function, no focal deficits noted. [] Psychologic: Affect normal, judgement normal, mood normal. Current Patient Data Vital Signs Vital Signs Date Time Temp Pulse Resp B/P Pulse Ox O2 Delivery O2 Flow Rate FiO2 07/22/16 01:43 80 245/133 07/22/16 00:15 97.7 24 100 Room Air 97.7 Lab Values Laboratory Tests Test 07/22/16 00:15 07/22/16 00:27 07/22/16 01:15 White Blood Count 8.8x10^3/uL (4.0-11.0) Red Blood Count 4.17x10^6/uL (3.50-5.40) Hemoglobin 11.9g/dL (12.0-15.5) L Hematocrit 36.5% (36.0-47.0) Mean Corpuscular Volume 88fL (79-100) Mean Corpuscular Hemoglobin 29pg (25-35) Mean Corpuscular Hemoglobin Concent 33g/dL (31-37) Red Cell Distribution Width 15.5% (11.5-14.5) H Platelet Count 318x10^3/uL (140-400) Neutrophils (%) (Auto) 67% (31-73) Lymphocytes (%) (Auto) 23% (24-48) L Monocytes (%) (Auto) 5% (0-9) Eosinophils (%) (Auto) 5% (0-3) H Basophils (%) (Auto) 1% (0-3) Neutrophils # (Auto) 5.9x10^3uL (1.8-7.7) Lymphocytes # (Auto) 2.0x10^3/uL (1.0-4.8) Monocytes # (Auto) 0.4x10^3/uL (0.0-1.1) Eosinophils # (Auto) 0.4x10^3/uL (0.0-0.7) Basophils # (Auto) 0.1x10^3/uL (0.0-0.2) Sodium Level 142mmol/L (136-145) Potassium Level 3.9mmol/L (3.5-5.1) Chloride Level 105mmol/L (98-107) Carbon Dioxide Level 21mmol/L (21-32) Anion Gap 16 (6-14) H Blood Urea Nitrogen 26mg/dL (7-20) H Creatinine 2.4mg/dL (0.6-1.0) H Estimated GFR (Cockcroft-Gault) 22.8 BUN/Creatinine Ratio 11 (6-20) Glucose Level 109mg/dL (70-99) H Calcium Level 9.3mg/dL (8.5-10.1) Total Bilirubin 0.2mg/dL (0.2-1.0) Aspartate Amino Transferase (AST) 25U/L (15-37) Alanine Aminotransferase (ALT) 37U/L (14-59) Alkaline Phosphatase 127U/L (46-116) H Total Protein 7.5g/dL (6.4-8.2) Albumin 2.7g/dL (3.4-5.0) L Albumin/Globulin Ratio 0.6 (1.0-1.7) L Lipase 888U/L (73-393) H POC Urine HCG, Qualitative Hcg negative (Negative) Urine Collection Type Unknown Urine Color Yellow Urine Clarity Clear Urine pH 7.0 Urine Specific [place] 1.010 Urine Protein >=300mg/dL (NEG-TRACE) Urine Glucose (UA) Negativemg/dL (NEG) Urine Ketones (Stick) Negativemg/dL (NEG) Urine Blood Small (NEG) Urine Nitrite Negative (NEG) Urine Bilirubin Negative (NEG) Urine Urobilinogen Dipstick 0.2mg/dL (0.2 mg/dL) Urine Leukocyte Esterase Negative (NEG) Urine RBC 6-10/HPF (0-2) Urine WBC Occ/HPF (0-4) Urine Squamous Epithelial Cells Few/LPF Urine Bacteria 0/HPF (0-FEW) Urine Mucus Slight/LPF Laboratory Tests 07/22/16 00:15 Laboratory Tests 07/22/16 00:15 EKG EKG [] Radiology/Procedures Radiology/Procedures [] Course & Med Decision Making Course & Med Decision Making Pertinent Labs and Imaging studies reviewed. (See chart for details) [] 36-year-old female presenting to the emergency department today with epigastric abdominal pain and history of pancreatitis. Vital signs afebrile. Normal heart rate. Blood pressure significantly elevated. Pertinent physical exam shows elevated blood pressure. IV established. Nausea and pain medications ordered. GI cocktail given. Blood work obtained. CBC shows mild anemia. Urinalysis shows moderate protein suggestive of chronic kidney disease. Chemistry panel confirms chronic kidney disease lipase elevated at around 900. Urine test negative. The patient was placed nothing by mouth and IV maintenance fluids ordered. The patient was then admitted for acute pancreatitis. Dragon Disclaimer Dragon Disclaimer This electronic medical record was generated, in whole or in part, using a voice recognition dictation system. Departure Departure Impression: Primary Impression: Acute pancreatitis Additional Impressions: Accelerated hypertension Poorly-controlled hypertension Disposition: ADMITTED INPATIENT Admitting Physician: Luz Riddle Condition: STABLE Referrals: NO PCP (PCP) Problem Qualifiers MONIE COX MD Jul 22, 2016 02:17
--- NOTE | 2016-07-22 02:28 | RAD ---
CT abdomen and pelvis without contrast Indication: Abdominal pain and elevated lipase. Axial imaging through the abdomen and pelvis was performed without contrast. PQRS STATEMENT One or more of the following individualized dose reduction techniques were utilized for this study: 1.Automated exposure control. 2.Adjustment of the mA and/orkVaccording to patient size. 3.Use of iterative reconstruction technique. No prior studies are available for comparison. The lung bases are clear. The liver and gallbladder are unremarkable. There is enlargement to the pancreatic head with peripancreatic inflammatory changes noted. Findings are suggestive of pancreatitis. No pancreatic or biliary ductal dilatation is seen. No peripancreatic fluid collection is identified. The spleen is unremarkable. No adrenal mass is detected. The left kidney does show some atrophy. There is a large nonobstructing calculus lower pole left kidney measuring 11 millimeters. The right kidney is unremarkable. The small and large bowel loops are normal caliber. There is no ascites. The bladder and uterus are unremarkable. Impression: There is enlargement to the pancreatic head with peripancreatic inflammation suggestive of acute pancreatitis. No fluid collection is detected. No other significant abnormality is detected. Electronically signed by: Gadiel Salazar MD (Jul 22, 2016 02:26:28)
--- NOTE | 2016-07-22 02:47 | ACF ---
Admission Forms Criteria PANCREATITIS Clinical Indications for Admission to Inpatient Care (Place 'X' for any and all applicable criteria): Admission is indicated for ANY ONE of the following (1)(2)(3)(4): [X]I. Acute pancreatitis[A] as indicated by 2 or more of the following: [X]a) Abdominal pain (eg, epigastric, left upper quadrant) [ ]b) Serum amylase or serum lipase greater than 3 times the upper limit of normal [X]c) Characteristic findings from abdominal imaging (eg, pancreatic inflammation, pancreatic necrosis, peripancreatic fluid collection)[B] [ ]II. Pancreatitis (acute or chronic ) requiring inpatient care as indicated by 1 or more of the following : [ ]a) Inability to maintain oral hydration Hypoxemia [ ]b) Evidence of infection (eg, fever, peripancreatic abscess) [ ]c) Severe pain requiring acute inpatient management [ ]d) Hemodynamic instability [ ]e) Hypoxemia [ ]f) Acute renal failure [ ]g) Severe electrolyte abnormalities Extended stay beyond goal length of stay may be needed for (1)(11) [ ]a) Severe acute pancreatitis (10)(19) [ ]b) Persistent symptoms, ascites, or pleural effusion [ ]c) Abdominal compartment syndrome (10) [ ]d) Late complications [ ]e) Acute renal failure (27) [ ]f) Gallstones in gallbladder The original [employer] content created by [employer] has been revised. The portions of the content which have been revised are identified through the use of italic text or in bold,and [facility] has neither reviewed nor approved the modified material.All other unmodified content is copyright [employer]. Please see references footnoted in the original [employer] edition 2016 Admission Criteria Met?: Yes NGUYỄN MENDOZA Jul 22, 2016 02:47
[2016-07-22 03:15] VITALS: BP 181/110
[2016-07-22] MEDS: LABETALOL 20 MG/4 ML DISP.SYRIN. IVP PRN ×3 (04:28→14:10)
[2016-07-22] MEDS: IV NORMAL SALINE 1000ML BAG 1,000 ML IV SCH ×4 (04:29→23:30)
[2016-07-22 07:00] VITALS: BP 164/110
[2016-07-22 10:43] VITALS: BP 170/102
[2016-07-22] MEDS ORDERED: ALBUTEROL SULFATE 2.5 MG/3 ML NEBU. NEB PRN (12:00)
[2016-07-22] MEDS ORDERED: ACETAMINOPHEN 500 MG TABLET PO PRN (12:00)
[2016-07-22] MEDS: FLUOXETINE HCL 20 MG CAPSULE PO SCH (12:19)
[2016-07-22] MEDS: AMLODIPINE BESYLATE 10 MG TABLET PO SCH (12:19)
--- NOTE | 2016-07-22 12:23 | HP ---
ADMIT DATE: 07/22/2016 CHIEF COMPLAINT: Abdominal pain. HISTORY OF PRESENT ILLNESS: The patient is a pleasant 36-year-old female presents with abdominal pain. She rates it 10/10. She has associated nausea. It has been occurring for a couple of days, it is worse with food. While in the ER, she is noted to have lipase in the 800 range, it appears she has pancreatitis. She does not drink much. I suspect she probably has gallstones. We are going to admit the patient and consult GI. PAST MEDICAL HISTORY: Overweight, bipolar, asthma, hypertension, previous pancreatitis, ____ disability. ALLERGIES: None. FAMILY HISTORY: Diabetes. SOCIAL HISTORY: She does not drink, smoke or take drugs. MEDICATIONS: Reviewed, please refer to the MRAD. REVIEW OF SYSTEMS: GENERAL: No history of weight change, weakness or fevers. SKIN: No bruising, hair changes or rashes. EYES: No blurred, double or loss of vision. NOSE AND THROAT: No history of nosebleeds, hoarseness or sore throat. HEART: No history of palpitations, chest pain or shortness of breath on exertion. LUNGS: Denies cough, hemoptysis, wheezing or shortness of breath. GASTROINTESTINAL: Complains of abdominal pain. GENITOURINARY: No history of frequency, urgency, hesitancy or nocturia. NEUROLOGIC: Denies history of numbness, tingling, tremor or weakness. PSYCHIATRIC: No history of panic, anxiety or depression. ENDOCRINE: No history of heat or cold intolerance, polyuria or polydipsia. EXTREMITIES: Denies muscle weakness, joint pain, pain on walking or stiffness. PHYSICAL EXAMINATION: VITAL SIGNS: Temperature afebrile, pulse 67, respirations 18, blood pressure 164/110. GENERAL: She is alert, cooperative, complaining of pain. HEART: Normal S1, S2. LUNGS: Clear. ABDOMEN: Soft. Decreased bowel sounds, obese, tender. EXTREMITIES: No edema. SKIN: No rashes. PSYCHIATRIC: She is anxious. VASCULAR: Good capillary refill. ENDOCRINE: No thyromegaly. LYMPHATICS: No cervical nodes. HEMATOPOIETIC: No bruising. LABORATORY DATA: White count 9, hemoglobin 12, platelets 318. Electrolytes: Sodium 142, potassium 3.9, chloride 105, bicarbonate 21, BUN 26, creatinine 2.4, glucose 109, lipase 888, alkaline phosphatase a little high at 127. ASSESSMENT AND PLAN: Probable gallstone pancreatitis. We will check an abdominal ultrasound. She also has an incidental finding of acute on chronic renal failure. We will consult Nephrology and GI. IV fluids, p.r.n. antiemetics, p.r.n. pain meds. Continue home medicines, daily lipase levels. PROGNOSIS: Guarded. WESLEY FRANCISCO DO DR: [place]/júnior JOB#: [id number] / [id number]
--- NOTE | 2016-07-22 12:36 | PDOC ---
G I PROGRESS NOTE Reason for Follow-up Abd pain/pancreatitis Subjective Pain persists Physical Exam Lungs clear CV S1 S2 ABD +BS, soft, mild epigastric tenderness Review of Relevant I have reviewed the following items jose (where applicable) has been applied. Labs Laboratory Tests Test 07/22/16 00:15 07/22/16 00:27 07/22/16 01:15 White Blood Count 8.8x10^3/uL (4.0-11.0) Red Blood Count 4.17x10^6/uL (3.50-5.40) Hemoglobin 11.9g/dL (12.0-15.5) Hematocrit 36.5% (36.0-47.0) Mean Corpuscular Volume 88fL (79-100) Mean Corpuscular Hemoglobin 29pg (25-35) Mean Corpuscular Hemoglobin Concent 33g/dL (31-37) Red Cell Distribution Width 15.5% (11.5-14.5) Platelet Count 318x10^3/uL (140-400) Neutrophils (%) (Auto) 67% (31-73) Lymphocytes (%) (Auto) 23% (24-48) Monocytes (%) (Auto) 5% (0-9) Eosinophils (%) (Auto) 5% (0-3) Basophils (%) (Auto) 1% (0-3) Neutrophils # (Auto) 5.9x10^3uL (1.8-7.7) Lymphocytes # (Auto) 2.0x10^3/uL (1.0-4.8) Monocytes # (Auto) 0.4x10^3/uL (0.0-1.1) Eosinophils # (Auto) 0.4x10^3/uL (0.0-0.7) Basophils # (Auto) 0.1x10^3/uL (0.0-0.2) Sodium Level 142mmol/L (136-145) Potassium Level 3.9mmol/L (3.5-5.1) Chloride Level 105mmol/L (98-107) Carbon Dioxide Level 21mmol/L (21-32) Anion Gap 16 (6-14) Blood Urea Nitrogen 26mg/dL (7-20) Creatinine 2.4mg/dL (0.6-1.0) Estimated GFR (Cockcroft-Gault) 22.8 BUN/Creatinine Ratio 11 (6-20) Glucose Level 109mg/dL (70-99) Calcium Level 9.3mg/dL (8.5-10.1) Total Bilirubin 0.2mg/dL (0.2-1.0) Aspartate Amino Transf (AST/SGOT) 25U/L (15-37) Alanine Aminotransferase (ALT/SGPT) 37U/L (14-59) Alkaline Phosphatase 127U/L (46-116) Total Protein 7.5g/dL (6.4-8.2) Albumin 2.7g/dL (3.4-5.0) Albumin/Globulin Ratio 0.6 (1.0-1.7) Lipase 888U/L (73-393) Bedside Urine HCG, Qualitative Hcg negative (Negative) Urine Collection Type Unknown Urine Color Yellow Urine Clarity Clear Urine pH 7.0 Urine Specific [place] 1.010 Urine Protein >=300mg/dL (NEG-TRACE) Urine Glucose (UA) Negativemg/dL (NEG) Urine Ketones (Stick) Negativemg/dL (NEG) Urine Blood Small (NEG) Urine Nitrite Negative (NEG) Urine Bilirubin Negative (NEG) Urine Urobilinogen Dipstick 0.2mg/dL (0.2 mg/dL) Urine Leukocyte Esterase Negative (NEG) Urine RBC 6-10/HPF (0-2) Urine WBC Occ/HPF (0-4) Urine Squamous Epithelial Cells Few/LPF Urine Bacteria 0/HPF (0-FEW) Urine Mucus Slight/LPF Laboratory Tests Test 07/22/16 00:15 07/22/16 00:27 07/22/16 01:15 White Blood Count 8.8x10^3/uL (4.0-11.0) Red Blood Count 4.17x10^6/uL (3.50-5.40) Hemoglobin 11.9g/dL (12.0-15.5) Hematocrit 36.5% (36.0-47.0) Mean Corpuscular Volume 88fL (79-100) Mean Corpuscular Hemoglobin 29pg (25-35) Mean Corpuscular Hemoglobin Concent 33g/dL (31-37) Red Cell Distribution Width 15.5% (11.5-14.5) Platelet Count 318x10^3/uL (140-400) Neutrophils (%) (Auto) 67% (31-73) Lymphocytes (%) (Auto) 23% (24-48) Monocytes (%) (Auto) 5% (0-9) Eosinophils (%) (Auto) 5% (0-3) Basophils (%) (Auto) 1% (0-3) Neutrophils # (Auto) 5.9x10^3uL (1.8-7.7) Lymphocytes # (Auto) 2.0x10^3/uL (1.0-4.8) Monocytes # (Auto) 0.4x10^3/uL (0.0-1.1) Eosinophils # (Auto) 0.4x10^3/uL (0.0-0.7) Basophils # (Auto) 0.1x10^3/uL (0.0-0.2) Sodium Level 142mmol/L (136-145) Potassium Level 3.9mmol/L (3.5-5.1) Chloride Level 105mmol/L (98-107) Carbon Dioxide Level 21mmol/L (21-32) Anion Gap 16 (6-14) Blood Urea Nitrogen 26mg/dL (7-20) Creatinine 2.4mg/dL (0.6-1.0) Estimated GFR (Cockcroft-Gault) 22.8 BUN/Creatinine Ratio 11 (6-20) Glucose Level 109mg/dL (70-99) Calcium Level 9.3mg/dL (8.5-10.1) Total Bilirubin 0.2mg/dL (0.2-1.0) Aspartate Amino Transf (AST/SGOT) 25U/L (15-37) Alanine Aminotransferase (ALT/SGPT) 37U/L (14-59) Alkaline Phosphatase 127U/L (46-116) Total Protein 7.5g/dL (6.4-8.2) Albumin 2.7g/dL (3.4-5.0) Albumin/Globulin Ratio 0.6 (1.0-1.7) Lipase 888U/L (73-393) Bedside Urine HCG, Qualitative Hcg negative (Negative) Urine Collection Type Unknown Urine Color Yellow Urine Clarity Clear Urine pH 7.0 Urine Specific [place] 1.010 Urine Protein >=300mg/dL (NEG-TRACE) Urine Glucose (UA) Negativemg/dL (NEG) Urine Ketones (Stick) Negativemg/dL (NEG) Urine Blood Small (NEG) Urine Nitrite Negative (NEG) Urine Bilirubin Negative (NEG) Urine Urobilinogen Dipstick 0.2mg/dL (0.2 mg/dL) Urine Leukocyte Esterase Negative (NEG) Urine RBC 6-10/HPF (0-2) Urine WBC Occ/HPF (0-4) Urine Squamous Epithelial Cells Few/LPF Urine Bacteria 0/HPF (0-FEW) Urine Mucus Slight/LPF Medications Current Medications Multi-Ingredient Mouthwash/Gargle (Gi Cocktail Single Dose) 15 ml 1X ONCE SWSW Last administered on 07/22/16 00:42; Start 07/22/16 at 01:00; Stop 07/22/16 at 01:01; Status DC Famotidine 20 mg 20 mg 1X ONCE IVP Last administered on 07/22/16 00:42; Start 07/22/16 at 01:00; Stop 07/22/16 at 01:01; Status DC Sodium Chloride (Iv Sodium Chloride 0.9% 500ml Bag) 500 ml @ 500 mls/hr 1X ONCE IV Last administered on 07/22/16 00:43; Start 07/22/16 at 01:00; Stop at 01:59; Status DC Labetalol HCl (Normodyne) 20 mg 1X ONCE IVP Last administered on 07/22/16 00: 43; Start 07/22/16 at 01:00; Stop 07/22/16 at 01:01; Status DC Labetalol HCl (Normodyne) 20 mg 1X ONCE IVP Last administered on 07/22/16 01: 43; Start 07/22/16 at 02:00; Stop 07/22/16 at 02:01; Status DC Ondansetron HCl (Zofran) 4 mg PRN Q8HRS PRN IV NAUSEA/VOMITING; Start 07/22/16 at 02:15; Stop 07/23/16 at 02:14 Morphine Sulfate 2 mg 2 mg PRN Q2HR PRN IV SEVERE PAIN; Start 07/22/16 at 02:15 ; Stop 07/23/16 at 02:14 Sodium Chloride (Iv Sodium Chloride 0.9% 1000ml Bag) 1,000 ml @ 125 mls/hr Q8H IV Last administered on 07/22/16 04:29; Start 07/22/16 at 02:12; Stop at 02:11 Labetalol HCl (Normodyne) 20 mg PRN Q2HR PRN IVP HYPERTENSION, SEE COMMENTS Last administered on 07/22/16 08:01; Start 07/22/16 at 02:45 Acetaminophen (Tylenol) 500 mg QIDPRN PRN PO MILD PAIN / TEMP; Start 07/22/16 at 12:00 Amlodipine Besylate (Norvasc) 10 mg DAILY PO Last administered on 07/22/16 12: 19; Start 07/22/16 at 12:30 Lisinopril (Prinivil) 40 mg HS PO ; Start 07/22/16 at 21:00 Albuterol Sulfate (Ventolin Neb Soln) 2.5 mg PRN Q4HRS PRN NEB SHORTNESS OF BREATH; Start 07/22/16 at 12:00 Fluoxetine HCl (Prozac) 40 mg DAILY PO Last administered on 07/22/16 12:19; Start 07/22/16 at 12:30 Non-Formulary Medication 1 ml [id number] IM ; Start 10/20/16 at 09:00; Status UNV Active Scripts Active Reported Lisinopril 40 Mg Tablet 1 Tab PO HS Depo-Provera (Medroxyprogesterone Acetate) 150 Mg/1 Ml Disp.syrin 1 Ml IM [id number] Prozac (Fluoxetine Hcl) 40 Mg Capsule 1 Cap PO DAILY Amlodipine Besylate 10 Mg Tablet 10 Mg PO DAILY Ventolin Hfa Inhaler (Albuterol Sulfate) 18 Gm Hfa.aer.ad 2 Puff INH Q4HRS PRN Acetaminophen 500 Mg Tablet 500 Mg PO PRN Vitals/I & O Vital Sign - Last 24 Hours 07/22/16 07/22/16 07/22/16 07/22/16 00:15 00:35 00:43 00:50 Temp 97.7 97.7 Pulse 87 94 93 94 Resp 24 20 20 B/P 237/133 249/130 249/130 215/120 Pulse Ox 100 100 100 O2 Delivery Room Air Room Air Room Air 07/22/16 07/22/16 07/22/16 07/22/16 01:22 01:35 01:43 02:05 Pulse 84 82 80 86 Resp 22 22 23 B/P 228/127 251/135 245/133 202/123 Pulse Ox 100 100 100 O2 Delivery Room Air Room Air Room Air 07/22/16 07/22/16 07/22/16 07/22/16 02:20 03:15 04:28 07:00 Temp 98.8 97.9 98.8 97.9 Pulse 82 77 77 88 Resp B/P 217/128 181/110 181/110 164/110 Pulse Ox 100 100 97 O2 Delivery Room Air Room Air Room Air 07/22/16 07/22/16 07/22/16 07/22/16 08:00 08:01 10:43 12:19 Temp 98.1 98.1 Pulse 88 87 87 Resp 16 B/P 164/110 170/102 170/102 Pulse Ox 98 O2 Delivery Room Air Room Air Intake and Output 07/21/16 07/21/16 07/22/16 15:00 23:00 07:00 Intake Total 500 ml Output Total 0 ml Balance 500 ml Problem List Problems Medical Problems: (1) Accelerated hypertension Status: Acute (2) Acute pancreatitis Status: Acute (3) Poorly-controlled hypertension Status: Acute Assessment Recurrent pancreatitis- most likely secondary to cholelithiasis, surgical consult recommended for possible lap EJ Issa MD Jul 22, 2016 12:36
--- NOTE | 2016-07-22 12:37 | RAD ---
Abdominal ultrasound, 07/22/2016: History: Acute pancreatitis The gallbladder is within normal limits in size. There is no sonographic evidence of cholelithiasis. The gallbladder martínez are not thickened. No bile duct dilatation is seen. The pancreas is not clearly defined. The pancreatic head appears to be prominent. No focal abnormal peripancreatic fluid collection is seen. The spleen is of normal size. There is a 1 cm calculus in the lower pole of the left kidney. There appears to be a small 1.2 cm parapelvic renal cyst. The kidneys show no evidence of obstruction. The renal parenchymal echogenicity is generally increased. The abdominal aorta is of normal caliber. The visualized portions of inferior vena cava show no abnormality. No free fluid is evident in the abdomen. IMPRESSION: 1. Prominent pancreatic head, better demonstrated on the recent CT study. 2. No abnormal peripancreatic fluid collection is seen. 3. Normal gallbladder. 4. Increased renal parenchymal echogenicity suggesting medical renal disease. 5. Nonobstructing left intrarenal calculus.
--- NOTE | 2016-07-22 13:35 | PDOC2 ---
CONSULT Date of Consult Date of Consult DATE: 07/22/16 TIME: 13:31 Reason for Consult Reason for Consult: pancreatitis Referring Physician Referring Physician: Dr Malhotra Identification/Chief Complaint Chief Complaint abdominal pain Source Source: Chart review, Patient History of Present Illness Reason for Visit: Epigastric pain started last night, ate a piece of chocolate. No nausea or emesis, tolerating clears. I evaluated her last week, pancreatitis and US had showed sludge in gallbladder. She left AMA before a physician could see to discuss surgery. She was seen prior to that in the ER for pancreatitis and left AMA Past Medical History Cardiovascular: HTN Psych: Anxiety, Bipolar, Depression Musculoskeletal: low back pain Renal/: No pertinent hx, Other Endocrine: No pertinent hx Past Surgical History Past Surgical History: No pertinent history Family History Family History: Diabetes, Hypertension, Kidney Disease Social History ALCOHOL: rare Drugs: None Current Problem List Problem List Problems Medical Problems: (1) Accelerated hypertension Status: Acute (2) Acute pancreatitis Status: Acute (3) Poorly-controlled hypertension Status: Acute Current Medications Current Medications Current Medications Multi-Ingredient Mouthwash/Gargle (Gi Cocktail Single Dose) 15 ml 1X ONCE SWSW Last administered on 07/22/16 00:42; Start 07/22/16 at 01:00; Stop 07/22/16 at 01:01; Status DC Famotidine 20 mg 20 mg 1X ONCE IVP Last administered on 07/22/16 00:42; Start 07/22/16 at 01:00; Stop 07/22/16 at 01:01; Status DC Sodium Chloride (Iv Sodium Chloride 0.9% 500ml Bag) 500 ml @ 500 mls/hr 1X ONCE IV Last administered on 07/22/16 00:43; Start 07/22/16 at 01:00; Stop at 01:59; Status DC Labetalol HCl (Normodyne) 20 mg 1X ONCE IVP Last administered on 07/22/16 00: 43; Start 07/22/16 at 01:00; Stop 07/22/16 at 01:01; Status DC Labetalol HCl (Normodyne) 20 mg 1X ONCE IVP Last administered on 07/22/16 01: 43; Start 07/22/16 at 02:00; Stop 07/22/16 at 02:01; Status DC Ondansetron HCl (Zofran) 4 mg PRN Q8HRS PRN IV NAUSEA/VOMITING; Start 07/22/16 at 02:15; Stop 07/23/16 at 02:14 Morphine Sulfate 2 mg 2 mg PRN Q2HR PRN IV SEVERE PAIN; Start 07/22/16 at 02:15 ; Stop 07/23/16 at 02:14 Sodium Chloride (Iv Sodium Chloride 0.9% 1000ml Bag) 1,000 ml @ 125 mls/hr Q8H IV Last administered on 07/22/16 04:29; Start 07/22/16 at 02:12; Stop at 02:11 Labetalol HCl (Normodyne) 20 mg PRN Q2HR PRN IVP HYPERTENSION, SEE COMMENTS Last administered on 07/22/16 08:01; Start 07/22/16 at 02:45 Acetaminophen (Tylenol) 500 mg QIDPRN PRN PO MILD PAIN / TEMP; Start 07/22/16 at 12:00 Amlodipine Besylate (Norvasc) 10 mg DAILY PO Last administered on 07/22/16 12: 19; Start 07/22/16 at 12:30 Lisinopril (Prinivil) 40 mg HS PO ; Start 07/22/16 at 21:00 Albuterol Sulfate (Ventolin Neb Soln) 2.5 mg PRN Q4HRS PRN NEB SHORTNESS OF BREATH; Start 07/22/16 at 12:00 Fluoxetine HCl (Prozac) 40 mg DAILY PO Last administered on 07/22/16 12:19; Start 07/22/16 at 12:30 Non-Formulary Medication 1 ml [id number] IM ; Start 10/20/16 at 09:00; Status UNV Active Scripts Active Reported Lisinopril 40 Mg Tablet 1 Tab PO HS Depo-Provera (Medroxyprogesterone Acetate) 150 Mg/1 Ml Disp.syrin 1 Ml IM [id number] Prozac (Fluoxetine Hcl) 40 Mg Capsule 1 Cap PO DAILY Amlodipine Besylate 10 Mg Tablet 10 Mg PO DAILY Ventolin Hfa Inhaler (Albuterol Sulfate) 18 Gm Hfa.aer.ad 2 Puff INH Q4HRS PRN Acetaminophen 500 Mg Tablet 500 Mg PO PRN Allergies Allergies: Coded Allergies: No Known Drug Allergies (Unverified , 12/08/15) ROS General: No: Chills, Other (fevers) PSYCHOLOGICAL ROS: No: Anxiety, Depression Eyes: No Blurry vision, No Double vision HEENT: No: Heacaches, Sore Throat Hematological and Lymphatic: No: Bleeding Problems, Blood Clots Respiratory: No: Cough, Shortness of breath Cardiovascular: No Chest Pain, No Palpitations Gastrointestinal: Yes Other (see hpi) Genitourinary: No Dysuria, No Hematuria Musculoskeletal: No Joint Pain, No Muscle Pain Neurological: No Confusion, No Numbness/Tingling Skin: No Pruritus, No Rash Physical Exam General: Alert, Oriented X3, Cooperative, No acute distress HEENT: PERRLA, Mucous membr. moist/pink Lungs: Clear to auscultation, Normal air movement Abdomen: Soft, Other (mild epigastric TTP) Extremities: No clubbing, No cyanosis, No edema, Normal pulses, No tenderness/ swelling Skin: No rashes, No breakdown Neuro: Normal gait, Normal speech, Normal tone, Sensation intact, Reflexes 2+ Vitals VITALS Vital Signs Date Time Temp Pulse Resp B/P Pulse Ox O2 Delivery O2 Flow Rate FiO2 07/22/16 12:19 87 170/102 07/22/16 10:43 98.1 16 98 Room Air 98.1 Labs Labs Laboratory Tests Test 07/22/16 00:15 07/22/16 00:27 07/22/16 01:15 07/22/16 11:45 White Blood Count 8.8x10^3/uL (4.0-11.0) Red Blood Count 4.17x10^6/uL (3.50-5.40) Hemoglobin 11.9g/dL (12.0-15.5) Hematocrit 36.5% (36.0-47.0) Mean Corpuscular Volume 88fL (79-100) Mean Corpuscular Hemoglobin 29pg (25-35) Mean Corpuscular Hemoglobin Concent 33g/dL (31-37) Red Cell Distribution Width 15.5% (11.5-14.5) Platelet Count 318x10^3/uL (140-400) Neutrophils (%) (Auto) 67% (31-73) Lymphocytes (%) (Auto) 23% (24-48) Monocytes (%) (Auto) 5% (0-9) Eosinophils (%) (Auto) 5% (0-3) Basophils (%) (Auto) 1% (0-3) Neutrophils # (Auto) 5.9x10^3uL (1.8-7.7) Lymphocytes # (Auto) 2.0x10^3/uL (1.0-4.8) Monocytes # (Auto) 0.4x10^3/uL (0.0-1.1) Eosinophils # (Auto) 0.4x10^3/uL (0.0-0.7) Basophils # (Auto) 0.1x10^3/uL (0.0-0.2) Sodium Level 142mmol/L (136-145) Potassium Level 3.9mmol/L (3.5-5.1) Chloride Level 105mmol/L (98-107) Carbon Dioxide Level 21mmol/L (21-32) Anion Gap 16 (6-14) Blood Urea Nitrogen 26mg/dL (7-20) Creatinine 2.4mg/dL (0.6-1.0) Estimated GFR (Cockcroft-Gault) 22.8 BUN/Creatinine Ratio 11 (6-20) Glucose Level 109mg/dL (70-99) Calcium Level 9.3mg/dL (8.5-10.1) Total Bilirubin 0.2mg/dL (0.2-1.0) Aspartate Amino Transf (AST/SGOT) 25U/L (15-37) Alanine Aminotransferase (ALT/SGPT) 37U/L (14-59) Alkaline Phosphatase 127U/L (46-116) Total Protein 7.5g/dL (6.4-8.2) Albumin 2.7g/dL (3.4-5.0) Albumin/Globulin Ratio 0.6 (1.0-1.7) Lipase 888U/L (73-393) 330U/L (73-393) Bedside Urine HCG, Qualitative Hcg negative (Negative) Urine Collection Type Unknown Urine Color Yellow Urine Clarity Clear Urine pH 7.0 Urine Specific [place] 1.010 Urine Protein >=300mg/dL (NEG-TRACE) Urine Glucose (UA) Negativemg/dL (NEG) Urine Ketones (Stick) Negativemg/dL (NEG) Urine Blood Small (NEG) Urine Nitrite Negative (NEG) Urine Bilirubin Negative (NEG) Urine Urobilinogen Dipstick 0.2mg/dL (0.2 mg/dL) Urine Leukocyte Esterase Negative (NEG) Urine RBC 6-10/HPF (0-2) Urine WBC Occ/HPF (0-4) Urine Squamous Epithelial Cells Few/LPF Urine Bacteria 0/HPF (0-FEW) Urine Mucus Slight/LPF Laboratory Tests Test 07/22/16 00:15 07/22/16 00:27 07/22/16 01:15 07/22/16 11:45 White Blood Count 8.8x10^3/uL (4.0-11.0) Red Blood Count 4.17x10^6/uL (3.50-5.40) Hemoglobin 11.9g/dL (12.0-15.5) Hematocrit 36.5% (36.0-47.0) Mean Corpuscular Volume 88fL (79-100) Mean Corpuscular Hemoglobin 29pg (25-35) Mean Corpuscular Hemoglobin Concent 33g/dL (31-37) Red Cell Distribution Width 15.5% (11.5-14.5) Platelet Count 318x10^3/uL (140-400) Neutrophils (%) (Auto) 67% (31-73) Lymphocytes (%) (Auto) 23% (24-48) Monocytes (%) (Auto) 5% (0-9) Eosinophils (%) (Auto) 5% (0-3) Basophils (%) (Auto) 1% (0-3) Neutrophils # (Auto) 5.9x10^3uL (1.8-7.7) Lymphocytes # (Auto) 2.0x10^3/uL (1.0-4.8) Monocytes # (Auto) 0.4x10^3/uL (0.0-1.1) Eosinophils # (Auto) 0.4x10^3/uL (0.0-0.7) Basophils # (Auto) 0.1x10^3/uL (0.0-0.2) Sodium Level 142mmol/L (136-145) Potassium Level 3.9mmol/L (3.5-5.1) Chloride Level 105mmol/L (98-107) Carbon Dioxide Level 21mmol/L (21-32) Anion Gap 16 (6-14) Blood Urea Nitrogen 26mg/dL (7-20) Creatinine 2.4mg/dL (0.6-1.0) Estimated GFR (Cockcroft-Gault) 22.8 BUN/Creatinine Ratio 11 (6-20) Glucose Level 109mg/dL (70-99) Calcium Level 9.3mg/dL (8.5-10.1) Total Bilirubin 0.2mg/dL (0.2-1.0) Aspartate Amino Transf (AST/SGOT) 25U/L (15-37) Alanine Aminotransferase (ALT/SGPT) 37U/L (14-59) Alkaline Phosphatase 127U/L (46-116) Total Protein 7.5g/dL (6.4-8.2) Albumin 2.7g/dL (3.4-5.0) Albumin/Globulin Ratio 0.6 (1.0-1.7) Lipase 888U/L (73-393) 330U/L (73-393) Bedside Urine HCG, Qualitative Hcg negative (Negative) Urine Collection Type Unknown Urine Color Yellow Urine Clarity Clear Urine pH 7.0 Urine Specific [place] 1.010 Urine Protein >=300mg/dL (NEG-TRACE) Urine Glucose (UA) Negativemg/dL (NEG) Urine Ketones (Stick) Negativemg/dL (NEG) Urine Blood Small (NEG) Urine Nitrite Negative (NEG) Urine Bilirubin Negative (NEG) Urine Urobilinogen Dipstick 0.2mg/dL (0.2 mg/dL) Urine Leukocyte Esterase Negative (NEG) Urine RBC 6-10/HPF (0-2) Urine WBC Occ/HPF (0-4) Urine Squamous Epithelial Cells Few/LPF Urine Bacteria 0/HPF (0-FEW) Urine Mucus Slight/LPF Assessment/Plan Assessment/Plan pancreatitis, likely biliary source--third visit this month for pancreatitis HTN, obesity CT showing some inflammatory changes to pancreas, lipase trending down and pain improved will need lap jann once acute process resolved previous us of GB showed sludge SHANTELLE CHIRSTOPHER NURSE UNIT MANAGER Jul 22, 2016 13:35
[2016-07-22 14:19] VITALS: BP 171/116
[2016-07-22] MEDS: MORPHINE SULFATE 2 MG/ML DISP.SYRIN. IV PRN ×2 (16:38→20:48)
[2016-07-22 19:05] VITALS: BP 188/114
[2016-07-22] MEDS: LISINOPRIL 40 MG TABLET. PO SCH (21:31)
[2016-07-22 23:00] VITALS: BP 179/111
[2016-07-23] VITALS (14 sets, daily range): BP systolic 115–191; BP diastolic 94–113
[2016-07-23] MEDS: MORPHINE SULFATE 2 MG/ML DISP.SYRIN. IV PRN (00:04)
[2016-07-23] MEDS: LABETALOL 20 MG/4 ML DISP.SYRIN. IVP PRN (00:08)
[2016-07-23 05:23] LABS: BASO % 1 % (0-3); EOS % 4 % (0-3); HEMATOCRIT 31.2 % (36.0-47.0); HEMOGLOBIN 10.5 g/dL (12.0-15.5); LYMPH # 2.6 x10^3/uL (1.0-4.8); LYMPH % 29 % (24-48); MEAN CORPUSCULAR HEMOGLOBIN 29 pg (25-35); MEAN CORPUSCULAR HGB CONC 34 g/dL (31-37); MEAN CORPUSCULAR VOLUME 86 fL (79-100); MONO % 7 % (0-9); NEUT % 60 % (31-73); PLATELET COUNT 298 x10^3/uL (140-400); RED BLOOD COUNT 3.63 x10^6/uL (3.50-5.40); RED CELL DISTRIBUTION WIDTH 15.5 % (11.5-14.5); WHITE BLOOD COUNT 8.9 x10^3/uL (4.0-11.0)
[2016-07-23 05:53] LABS: CALCIUM 8.9 mg/dL (8.5-10.1); CREATININE 2.1 mg/dL (0.6-1.0); GFR 26.6; POTASSIUM 3.9 mmol/L (3.5-5.1)
[2016-07-23] MEDS ORDERED: CEFAZOLIN 2GM PREMIX 50 ML IV PRN (06:00)
[2016-07-23] MEDS ORDERED: IOHEXOL 300 MG/ML 50 ML VIAL. ONE (07:13)
[2016-07-23] MEDS ORDERED: BUPIVAC MPF-EPI 0.5%-1:200000 30 ML VIAL. ONE (07:13)
[2016-07-23] MEDS ORDERED: GLUCAGON,HUMAN RECOMBINANT 1 MG/ML VIAL. ONE (07:13)
[2016-07-23] MEDS ORDERED: SURGICEL HEMOSTAT 4X8 EACH. ONE (07:13)
[2016-07-23] MEDS ORDERED: IV RINGERS,LACTATED 1000ML 1,000 ML IV SCH (07:23)
[2016-07-23] MEDS ORDERED: ONDANSETRON PF 4 MG/2 ML VIAL. ONE (07:23)
[2016-07-23] MEDS ORDERED: FENTANYL PF 100 MCG/2 ML VIAL. ONE ×2 (07:23→08:55)
[2016-07-23] MEDS ORDERED: LIDOCAINE 2% 100 MG/5 ML DISP.SYRIN. ONE (07:23)
[2016-07-23] MEDS ORDERED: SUCCINYLCHOLINE 200 MG/10 ML VIAL. ONE (07:23)
[2016-07-23] MEDS ORDERED: PROPOFOL 20 ML IV ONE (07:23)
[2016-07-23] MEDS ORDERED: DEXAMETHASONE SOD PHOS 20 MG/5 ML VIAL. ONE (07:23)
[2016-07-23] MEDS ORDERED: ROCURONIUM 50 MG/5 ML VIAL. ONE (07:24)
[2016-07-23] MEDS ORDERED: PROCHLORPERAZINE 10 MG/2 ML VIAL. IV PRN (07:30)
[2016-07-23] MEDS ORDERED: LIDOCAINE 1% 1 ML SYRINGE. ID PRN (07:30)
[2016-07-23] MEDS ORDERED: FENTANYL PF 100 MCG/2 ML VIAL. IV PRN ×2 (07:30)
[2016-07-23] MEDS ORDERED: ONDANSETRON PF 4 MG/2 ML VIAL. IV PRN (07:30)
[2016-07-23] MEDS ORDERED: MORPHINE SULFATE 2 MG/ML DISP.SYRIN. IV PRN (07:30)
[2016-07-23] MEDS ORDERED: HYDROMORPHONE 2 MG/ML VIAL. IV PRN (07:30)
--- NOTE | 2016-07-23 08:42 | RAD ---
Indication: Intraoperative cholangiogram. Cholecystitis. Technique: 4 spot fluoroscopic images and a dose report are submitted for review post procedure. Fluoroscopy time is reported at 0.23 minutes. Findings: No filling defect within the normal caliber common bile duct is identified. Contrast fills freely into the duodenal sweep. A small amount of reflux into the pancreatic duct is noted. No extraluminal contrast is apparent. Impression: Normal intraoperative cholangiogram.
[2016-07-23] MEDS ORDERED: GLYCOPYRROLATE 1 MG/5 ML VIAL. ONE (08:48)
[2016-07-23] MEDS ORDERED: NEOSTIGMINE METHYLSULFATE 5 MG/5 ML SYRINGE. ONE (08:48)
--- NOTE | 2016-07-23 09:26 | PDOC ---
BRIEF OPERATIVE NOTE Date: Jul 23, 2016 Pre-Op Diagnosis pancreatitis Post-Op Diagnosis same Procedure Performed l/s cholecystectomy with cholangiograms, JAYDON Surgeon [employer] Cordelia DIAZ Anesthesia Type: General Blood Loss 25cc IV Fluid 800cc Specimens Obtained GB Findings supple GB, normal grams, some filling of the pancreatic duct Complications none Additional Remarks Wk # [id number] ELI WHATLEY MD Jul 23, 2016 09:25
--- NOTE | 2016-07-23 09:29 | OP ---
DATE OF SURGERY: 07/23/2016 PREOPERATIVE DIAGNOSIS: Gallstone pancreatitis. POSTOPERATIVE DIAGNOSIS: Gallstone pancreatitis. PROCEDURE: Laparoscopic cholecystectomy with cholangiogram. SURGEON: Eli Whatley MD SQE: EMILY Graham. ANESTHESIA: General endotracheal. ESTIMATED BLOOD LOSS: 25 mL. IV FLUID: 800 mL. INDICATIONS: The patient is a 36-year-old with recurring bouts of pancreatitis. She is brought for cholecystectomy. OPERATIVE FINDINGS: The liver was slightly generous, smooth, and sharp. The gallbladder was supple. Cholangiograms were normal. There were some filmy adhesions between leaves of omentum that were taken down to prevent potential bowel obstruction. The remainder of the inspection of the abdomen was unremarkable. DESCRIPTION OF PROCEDURE: The patient brought to the operating suite, given a general endotracheal anesthetic and the abdomen prepped and draped in usual sterile fashion. A supraumbilical incision was infiltrated with local anesthetic, sharply incised, and a 5 mm Visiport used to gain access into the abdominal cavity taking care to avoid injury to the abdominal contents. Pneumoperitoneum was established. Camera inserted and inspection carried out with results as noted above. With the table in reverse Trendelenburg rolled to the left, the epigastric, midclavicular, and lateral ports were placed under direct vision. The gallbladder was retracted superior to laterally. The cystic duct and cystic artery were isolated. The duct was clipped on the gallbladder side. Cholangiograms were made. These were normal. In light of this the catheter was removed. The cystic duct was clipped x 3 and divided taking care to avoid injury or compromise the common duct. The cystic artery was doubly clipped and divided and the gallbladder freed from the bed with cautery dissection and placed in an EndoCatch bag. Good hemostasis was present. Table returned to level. Gallbladder delivered through the epigastric incision. Epigastric incision closed with interrupted 0 Vicryl suture. Intra-abdominal pressure decreased to 6 cm of water. No bleeding from the epigastric closure or from the midclavicular or lateral port sites after their removal. Abdomen decompressed, camera slowly removed, no bleeding seen. Skin incisions closed with subcuticular 4-0 Monocryl. Steri-Strips and sterile dressings applied. The patient awakened from her anesthetic and taken to the recovery room in satisfactory condition. ELI WHATLEY MD DR: Shaun JOB#: [id number] / [id number]
[2016-07-23] MEDS ORDERED: HYDROCODONE/APAP 5/325MG TABLET. PO PRN (09:30)
[2016-07-23] MEDS: FLUOXETINE HCL 20 MG CAPSULE PO SCH (11:40)
[2016-07-23] MEDS: AMLODIPINE BESYLATE 10 MG TABLET PO SCH (11:40)
[2016-07-23] MEDS: ENOXAPARIN 40 MG/0.4 ML DISP.SYRIN. SQ SCH (11:40)
--- NOTE | 2016-07-23 11:40 | PDOC2 ---
CONSULT Date of Consult Date of Consult DATE: 07/23/16 TIME: 11:34 Reason for Consult Reason for Consult: RENAL FAILURE Referring Physician Referring Physician: MARYAM Identification/Chief Complaint Chief Complaint ABD PAIN Source Source: Chart review History of Present Illness Reason for Visit: THIS IS A 36 YR OLD HERE WITH ABD PAIN AND A DX OF PANCREATITIS. SHE IS BEING EVALUATE BY SURGERY FOR THIS. HER CR IS 2.4 WITH MILD HYPERNATREMIA. SONOGRAM OF THE ABD DONE EARLIER THIS YEAR SHOWED NEPHROCALCINOSIS AND CHRONIC MEDICAL RENAL DZ. BASED ON OLD LABS SHE APPEARS TO HAVE CKD STAGE 3 WITH CR OF 1.7-2.0 AT BASELINE. UA IS NEGATIVE Past Medical History Cardiovascular: HTN Psych: Anxiety, Bipolar, Depression Musculoskeletal: low back pain Renal/: Chronic renal insuff, Other Endocrine: No pertinent hx Past Surgical History Past Surgical History: No pertinent history Family History Family History: Diabetes, Hypertension, Kidney Disease Social History ALCOHOL: rare Drugs: None Current Problem List Problem List Problems Medical Problems: (1) Accelerated hypertension Status: Acute (2) Acute pancreatitis Status: Acute (3) Poorly-controlled hypertension Status: Acute Current Medications Current Medications Current Medications Multi-Ingredient Mouthwash/Gargle (Gi Cocktail Single Dose) 15 ml 1X ONCE SWSW Last administered on 07/22/16 00:42; Start 07/22/16 at 01:00; Stop 07/22/16 at 01:01; Status DC Famotidine 20 mg 20 mg 1X ONCE IVP Last administered on 07/22/16 00:42; Start 07/22/16 at 01:00; Stop 07/22/16 at 01:01; Status DC Sodium Chloride (Iv Sodium Chloride 0.9% 500ml Bag) 500 ml @ 500 mls/hr 1X ONCE IV Last administered on 07/22/16 00:43; Start 07/22/16 at 01:00; Stop at 01:59; Status DC Labetalol HCl (Normodyne) 20 mg 1X ONCE IVP Last administered on 07/22/16 00: 43; Start 07/22/16 at 01:00; Stop 07/22/16 at 01:01; Status DC Labetalol HCl (Normodyne) 20 mg 1X ONCE IVP Last administered on 07/22/16 01: 43; Start 07/22/16 at 02:00; Stop 07/22/16 at 02:01; Status DC Ondansetron HCl (Zofran) 4 mg PRN Q8HRS PRN IV NAUSEA/VOMITING; Start 07/22/16 at 02:15; Stop 07/23/16 at 02:14; Status DC Morphine Sulfate 2 mg 2 mg PRN Q2HR PRN IV SEVERE PAIN Last administered on 00:04; Start 07/22/16 at 02:15; Stop 07/23/16 at 02:14; Status DC Sodium Chloride (Iv Sodium Chloride 0.9% 1000ml Bag) 1,000 ml @ 125 mls/hr Q8H IV Last administered on 07/22/16 23:30; Start 07/22/16 at 02:12; Stop at 02:11; Status DC Labetalol HCl (Normodyne) 20 mg PRN Q2HR PRN IVP HYPERTENSION, SEE COMMENTS Last administered on 07/23/16 00:08; Start 07/22/16 at 02:45 Acetaminophen (Tylenol) 500 mg QIDPRN PRN PO MILD PAIN / TEMP; Start 07/22/16 at 12:00 Amlodipine Besylate (Norvasc) 10 mg DAILY PO Last administered on 07/22/16 12: 19; Start 07/22/16 at 12:30 Lisinopril (Prinivil) 40 mg HS PO Last administered on 07/22/16 21:31; Start 07/22/16 at 21:00 Albuterol Sulfate (Ventolin Neb Soln) 2.5 mg PRN Q4HRS PRN NEB SHORTNESS OF BREATH; Start 07/22/16 at 12:00 Fluoxetine HCl (Prozac) 40 mg DAILY PO Last administered on 07/22/16 12:19; Start 07/22/16 at 12:30 Non-Formulary Medication 1 ml 1 ml [id number] IM ; Start 10/20/16 at 09:00; Status UNV Cefazolin Sodium/ Dextrose (Ancef 2gm Premix) 50 ml @ 100 mls/hr 1X PREOP PRN IV prophylaxis Last administered on 07/23/16 08:19; Start 07/23/16 at 06:00; Stop 07/23/16 at 18:00 Cellulose 1 each STK-MED ONCE .ROUTE ; Start 07/23/16 at 07:13; Stop 07/23/16 at 07:14; Status DC Bupivacaine HCl/ Epinephrine Bitart (Sensorcain-Mpf Epi 0.5%-1:998909) 30 ml STK -MED ONCE .ROUTE Last administered on 07/23/16 08:21; Start 07/23/16 at 07:13 ; Stop 07/23/16 at 07:14; Status DC Iohexol (Omnipaque 300 Mg/ml) 50 ml STK-MED ONCE .ROUTE Last administered on 08:21; Start 07/23/16 at 07:13; Stop 07/23/16 at 07:14; Status DC Glucagon (Glucagen) 1 mg STK-MED ONCE .ROUTE ; Start 07/23/16 at 07:13; Stop at 07:14; Status DC Ondansetron HCl (Zofran) 4 mg PRN Q6HRS PRN IV Nausea; Start 07/23/16 at 07:30 ; Stop 07/24/16 at 07:29 Fentanyl Citrate (Fentanyl 2ml Vial) 25 mcg PRN Q5MIN PRN IV MILD PAIN; Start 07/23/16 at 07:30; Stop 07/24/16 at 07:29 Fentanyl Citrate (Fentanyl 2ml Vial) 50 mcg PRN Q5MIN PRN IV MODERATE PAIN; Start 07/23/16 at 07:30; Stop 07/24/16 at 07:29 Morphine Sulfate 1 mg 1 mg PRN Q10MIN PRN IV SEVERE PAIN; Start 07/23/16 at 07: 30; Stop 07/24/16 at 07:29 Lactated Ringer's (Iv Lactated Ringers) 1,000 ml @ 30 mls/hr Q24H IV Last administered on 07/23/16 09:52; Start 07/23/16 at 07:23; Stop 07/23/16 at 19:22 Lidocaine HCl 2 ml 1X PRN PRN ID IV START; Start 07/23/16 at 07:30; Stop at 07:29 Hydromorphone HCl (Dilaudid) 0.5 mg PRN Q10MIN PRN IV SEV PAIN,Second choice; Start 07/23/16 at 07:30; Stop 07/24/16 at 07:29 Prochlorperazine Edisylate (Compazine) 5 mg PACU PRN PRN IV NAUSEA; Start 07/23 at 07:30; Stop 07/24/16 at 07:29 Dexamethasone Sodium Phosphate (Decadron) 20 mg STK-MED ONCE .ROUTE ; Start at 07:23; Stop 07/23/16 at 07:24; Status DC Ondansetron HCl 4 mg 4 mg STK-MED ONCE .ROUTE ; Start 07/23/16 at 07:23; Stop at 07:24; Status DC Propofol (Diprivan) 20 ml @ As Directed STK-MED ONCE IV ; Start 07/23/16 at 07: 23; Stop 07/23/16 at 07:24; Status DC Lidocaine HCl 100 mg STK-MED ONCE .ROUTE ; Start 07/23/16 at 07:23; Stop at 07:24; Status DC Fentanyl Citrate (Fentanyl 2ml Vial) 100 mcg STK-MED ONCE .ROUTE ; Start at 07:23; Stop 07/23/16 at 07:24; Status DC Succinylcholine Chloride (Anectine) 200 mg STK-MED ONCE .ROUTE ; Start 07/23/16 at 07:23; Stop 07/23/16 at 07:24; Status DC Rocuronium [place] (Zemuron) 50 mg STK-MED ONCE .ROUTE ; Start 07/23/16 at 07:24 ; Stop 07/23/16 at 07:25; Status DC Glycopyrrolate (Robinul) 1 mg STK-MED ONCE .ROUTE ; Start 07/23/16 at 08:48; Stop 07/23/16 at 08:49; Status DC Neostigmine Methylsulfate 5 mg STK-MED ONCE .ROUTE ; Start 07/23/16 at 08:48; Stop 07/23/16 at 08:49; Status DC Fentanyl Citrate (Fentanyl 2ml Vial) 100 mcg STK-MED ONCE .ROUTE ; Start at 08:55; Stop 07/23/16 at 08:56; Status DC Acetaminophen/ Hydrocodone Bitart (Lortab 5/325) 1 tab PRN Q4HRS PRN PO PAIN; Start 07/23/16 at 09:30 Enoxaparin Sodium (Lovenox 40mg Syringe) 40 mg DAILY SQ ; Start 07/23/16 at 09: 30 Active Scripts Active Reported Lisinopril 40 Mg Tablet 1 Tab PO HS Depo-Provera (Medroxyprogesterone Acetate) 150 Mg/1 Ml Disp.syrin 1 Ml IM [id number] Prozac (Fluoxetine Hcl) 40 Mg Capsule 1 Cap PO DAILY Amlodipine Besylate 10 Mg Tablet 10 Mg PO DAILY Ventolin Hfa Inhaler (Albuterol Sulfate) 18 Gm Hfa.aer.ad 2 Puff INH Q4HRS PRN Acetaminophen 500 Mg Tablet 500 Mg PO PRN Allergies Allergies: Coded Allergies: No Known Drug Allergies (Unverified , 12/08/15) ROS Review of System UNABLE TO OBTAIN, SOMNOLENT POST CHOLANGIOGRAM Physical Exam General: Cooperative HEENT: Atraumatic, PERRLA, EOMI Lungs: Clear to auscultation, Normal air movement Heart: Regular rate, Normal S1, Normal S2 Abdomen: Normal bowel sounds, Soft Extremities: No clubbing, No cyanosis Skin: No breakdown Neuro: Other (SOMNOLENT) Psych/Mental Status: Other (SOMNOLENT) MUSCULOSKELETAL: No deformity Vitals VITALS Vital Signs Date Time Temp Pulse Resp B/P Pulse Ox O2 Delivery O2 Flow Rate FiO2 07/23/16 11:30 97.5 84 14 166/106 94 Room Air 97.5 07/23/16 09:39 8 Labs Labs Laboratory Tests Test 07/22/16 00:15 07/22/16 00:27 07/22/16 01:15 07/22/16 11:45 White Blood Count 8.8x10^3/uL (4.0-11.0) Red Blood Count 4.17x10^6/uL (3.50-5.40) Hemoglobin 11.9g/dL (12.0-15.5) Hematocrit 36.5% (36.0-47.0) Mean Corpuscular Volume 88fL (79-100) Mean Corpuscular Hemoglobin 29pg (25-35) Mean Corpuscular Hemoglobin Concent 33g/dL (31-37) Red Cell Distribution Width 15.5% (11.5-14.5) Platelet Count 318x10^3/uL (140-400) Neutrophils (%) (Auto) 67% (31-73) Lymphocytes (%) (Auto) 23% (24-48) Monocytes (%) (Auto) 5% (0-9) Eosinophils (%) (Auto) 5% (0-3) Basophils (%) (Auto) 1% (0-3) Neutrophils # (Auto) 5.9x10^3uL (1.8-7.7) Lymphocytes # (Auto) 2.0x10^3/uL (1.0-4.8) Monocytes # (Auto) 0.4x10^3/uL (0.0-1.1) Eosinophils # (Auto) 0.4x10^3/uL (0.0-0.7) Basophils # (Auto) 0.1x10^3/uL (0.0-0.2) Sodium Level 142mmol/L (136-145) Potassium Level 3.9mmol/L (3.5-5.1) Chloride Level 105mmol/L (98-107) Carbon Dioxide Level 21mmol/L (21-32) Anion Gap 16 (6-14) Blood Urea Nitrogen 26mg/dL (7-20) Creatinine 2.4mg/dL (0.6-1.0) Estimated GFR (Cockcroft-Gault) 22.8 BUN/Creatinine Ratio 11 (6-20) Glucose Level 109mg/dL (70-99) Calcium Level 9.3mg/dL (8.5-10.1) Total Bilirubin 0.2mg/dL (0.2-1.0) Aspartate Amino Transf (AST/SGOT) 25U/L (15-37) Alanine Aminotransferase (ALT/SGPT) 37U/L (14-59) Alkaline Phosphatase 127U/L (46-116) Total Protein 7.5g/dL (6.4-8.2) Albumin 2.7g/dL (3.4-5.0) Albumin/Globulin Ratio 0.6 (1.0-1.7) Lipase 888U/L (73-393) 330U/L (73-393) Bedside Urine HCG, Qualitative Hcg negative (Negative) Urine Collection Type Unknown Urine Color Yellow Urine Clarity Clear Urine pH 7.0 Urine Specific [place] 1.010 Urine Protein >=300mg/dL (NEG-TRACE) Urine Glucose (UA) Negativemg/dL (NEG) Urine Ketones (Stick) Negativemg/dL (NEG) Urine Blood Small (NEG) Urine Nitrite Negative (NEG) Urine Bilirubin Negative (NEG) Urine Urobilinogen Dipstick 0.2mg/dL (0.2 mg/dL) Urine Leukocyte Esterase Negative (NEG) Urine RBC 6-10/HPF (0-2) Urine WBC Occ/HPF (0-4) Urine Squamous Epithelial Cells Few/LPF Urine Bacteria 0/HPF (0-FEW) Urine Mucus Slight/LPF Test 07/23/16 04:40 White Blood Count 8.9x10^3/uL (4.0-11.0) Red Blood Count 3.63x10^6/uL (3.50-5.40) Hemoglobin 10.5g/dL (12.0-15.5) Hematocrit 31.2% (36.0-47.0) Mean Corpuscular Volume 86fL (79-100) Mean Corpuscular Hemoglobin 29pg (25-35) Mean Corpuscular Hemoglobin Concent 34g/dL (31-37) Red Cell Distribution Width 15.5% (11.5-14.5) Platelet Count 298x10^3/uL (140-400) Neutrophils (%) (Auto) 60% (31-73) Lymphocytes (%) (Auto) 29% (24-48) Monocytes (%) (Auto) 7% (0-9) Eosinophils (%) (Auto) 4% (0-3) Basophils (%) (Auto) 1% (0-3) Neutrophils # (Auto) 5.3x10^3uL (1.8-7.7) Lymphocytes # (Auto) 2.6x10^3/uL (1.0-4.8) Monocytes # (Auto) 0.6x10^3/uL (0.0-1.1) Eosinophils # (Auto) 0.4x10^3/uL (0.0-0.7) Basophils # (Auto) 0.0x10^3/uL (0.0-0.2) Sodium Level 146mmol/L (136-145) Potassium Level 3.9mmol/L (3.5-5.1) Chloride Level 113mmol/L (98-107) Carbon Dioxide Level 21mmol/L (21-32) Anion Gap 12 (6-14) Blood Urea Nitrogen 17mg/dL (7-20) Creatinine 2.1mg/dL (0.6-1.0) Estimated GFR (Cockcroft-Gault) 26.6 Glucose Level 79mg/dL (70-99) Calcium Level 8.9mg/dL (8.5-10.1) Laboratory Tests Test 07/22/16 11:45 07/23/16 04:40 Lipase 330U/L (73-393) White Blood Count 8.9x10^3/uL (4.0-11.0) Red Blood Count 3.63x10^6/uL (3.50-5.40) Hemoglobin 10.5g/dL (12.0-15.5) Hematocrit 31.2% (36.0-47.0) Mean Corpuscular Volume 86fL (79-100) Mean Corpuscular Hemoglobin 29pg (25-35) Mean Corpuscular Hemoglobin Concent 34g/dL (31-37) Red Cell Distribution Width 15.5% (11.5-14.5) Platelet Count 298x10^3/uL (140-400) Neutrophils (%) (Auto) 60% (31-73) Lymphocytes (%) (Auto) 29% (24-48) Monocytes (%) (Auto) 7% (0-9) Eosinophils (%) (Auto) 4% (0-3) Basophils (%) (Auto) 1% (0-3) Neutrophils # (Auto) 5.3x10^3uL (1.8-7.7) Lymphocytes # (Auto) 2.6x10^3/uL (1.0-4.8) Monocytes # (Auto) 0.6x10^3/uL (0.0-1.1) Eosinophils # (Auto) 0.4x10^3/uL (0.0-0.7) Basophils # (Auto) 0.0x10^3/uL (0.0-0.2) Sodium Level 146mmol/L (136-145) Potassium Level 3.9mmol/L (3.5-5.1) Chloride Level 113mmol/L (98-107) Carbon Dioxide Level 21mmol/L (21-32) Anion Gap 12 (6-14) Blood Urea Nitrogen 17mg/dL (7-20) Creatinine 2.1mg/dL (0.6-1.0) Estimated GFR (Cockcroft-Gault) 26.6 Glucose Level 79mg/dL (70-99) Calcium Level 8.9mg/dL (8.5-10.1) Assessment/Plan Assessment/Plan IMP ELENA-MILD WITH CR OF 2.4 CKD STAGE 3 WITH CR OF ABOUT 1.7-2.0 AT BASELINE DEHYDRATION PANCREATITIS HTN - UNCONTROLLED PLAN IVF'S CATAPRES PATCH ENC COMPLIANCE SURGERY EVAL AND TX WILL FOLLOW ROGELIO WORTHY MD Jul 23, 2016 11:40
[2016-07-23] MEDS ORDERED: CLONIDINE TTS TD SCH (12:30)
[2016-07-23] MEDS: IV NORMAL SALINE 1000ML BAG 1,000 ML IV SCH ×2 (14:13→22:30)
[2016-07-23] MEDS: LISINOPRIL 40 MG TABLET. PO SCH (22:26)
[2016-07-24 03:00] VITALS: BP 165/102
[2016-07-24] MEDS: LABETALOL 20 MG/4 ML DISP.SYRIN. IVP PRN (03:01)
[2016-07-24 05:38] LABS: BASO % 0 % (0-3); EOS % 0 % (0-3); HEMATOCRIT 29.8 % (36.0-47.0); HEMOGLOBIN 9.8 g/dL (12.0-15.5); LYMPH # 1.5 x10^3/uL (1.0-4.8); LYMPH % 14 % (24-48); MEAN CORPUSCULAR HEMOGLOBIN 29 pg (25-35); MEAN CORPUSCULAR HGB CONC 33 g/dL (31-37); MEAN CORPUSCULAR VOLUME 87 fL (79-100); MONO % 6 % (0-9); NEUT % 81 % (31-73); PLATELET COUNT 333 x10^3/uL (140-400); RED BLOOD COUNT 3.42 x10^6/uL (3.50-5.40); RED CELL DISTRIBUTION WIDTH 15.7 % (11.5-14.5)
[2016-07-24 05:47] LABS: CALCIUM 8.8 mg/dL (8.5-10.1); CREATININE 2.4 mg/dL (0.6-1.0); GFR 22.8; POTASSIUM 4.8 mmol/L (3.5-5.1)
[2016-07-24 07:00] VITALS: BP 149/89
--- NOTE | 2016-07-24 07:59 | PDOC ---
PROGRESS NOTES Chief Complaint Chief Complaint cc: abdominla pain A/P Possible Gall stone pancreatitis, s/p laparoscopic cholecystectomy with cholangiograms, POD 1 HTN: not controlled ELENA Plan add metoprolol pain control with iv morphine monitor renal functions diet per surgery Vitals Vitals Vital Signs Date Time Temp Pulse Resp B/P Pulse Ox O2 Delivery O2 Flow Rate FiO2 07/24/16 03:01 86 165/102 07/24/16 03:00 98.2 30 98 Room Air 98.2 07/23/16 09:39 8 Physical Exam General: Alert, Oriented X3, Cooperative Heart: Regular rate, Normal S1, Normal S2 Lungs: Clear Abdomen: Normal bowel sounds, Soft Extremities: No clubbing, No cyanosis Skin: No breakdown Labs LABS Laboratory Tests Test 07/24/16 05:10 White Blood Count 11.0x10^3/uL (4.0-11.0) Red Blood Count 3.42x10^6/uL (3.50-5.40) Hemoglobin 9.8g/dL (12.0-15.5) Hematocrit 29.8% (36.0-47.0) Mean Corpuscular Volume 87fL (79-100) Mean Corpuscular Hemoglobin 29pg (25-35) Mean Corpuscular Hemoglobin Concent 33g/dL (31-37) Red Cell Distribution Width 15.7% (11.5-14.5) Platelet Count 333x10^3/uL (140-400) Neutrophils (%) (Auto) 81% (31-73) Lymphocytes (%) (Auto) 14% (24-48) Monocytes (%) (Auto) 6% (0-9) Eosinophils (%) (Auto) 0% (0-3) Basophils (%) (Auto) 0% (0-3) Neutrophils # (Auto) 8.9x10^3uL (1.8-7.7) Lymphocytes # (Auto) 1.5x10^3/uL (1.0-4.8) Monocytes # (Auto) 0.6x10^3/uL (0.0-1.1) Eosinophils # (Auto) 0.0x10^3/uL (0.0-0.7) Basophils # (Auto) 0.0x10^3/uL (0.0-0.2) Sodium Level 145mmol/L (136-145) Potassium Level 4.8mmol/L (3.5-5.1) Chloride Level 112mmol/L (98-107) Carbon Dioxide Level 19mmol/L (21-32) Anion Gap 14 (6-14) Blood Urea Nitrogen 21mg/dL (7-20) Creatinine 2.4mg/dL (0.6-1.0) Estimated GFR (Cockcroft-Gault) 22.8 Glucose Level 90mg/dL (70-99) Calcium Level 8.8mg/dL (8.5-10.1) Assessment and Plan Assessmemt and Plan Problems Medical Problems: (1) Accelerated hypertension Status: Acute (2) Acute pancreatitis Status: Acute (3) Poorly-controlled hypertension Status: Acute Problems: Comment Review of Relevant I have reviewed the following items jose (where applicable) has been applied. Labs Laboratory Tests Test 07/22/16 11:45 07/23/16 04:40 07/24/16 05:10 Lipase 330U/L (73-393) White Blood Count 8.9x10^3/uL (4.0-11.0) 11.0x10^3/uL (4.0-11.0) Red Blood Count 3.63x10^6/uL (3.50-5.40) 3.42x10^6/uL (3.50-5.40) Hemoglobin 10.5g/dL (12.0-15.5) 9.8g/dL (12.0-15.5) Hematocrit 31.2% (36.0-47.0) 29.8% (36.0-47.0) Mean Corpuscular Volume 86fL (79-100) 87fL (79-100) Mean Corpuscular Hemoglobin 29pg (25-35) 29pg (25-35) Mean Corpuscular Hemoglobin Concent 34g/dL (31-37) 33g/dL (31-37) Red Cell Distribution Width 15.5% (11.5-14.5) 15.7% (11.5-14.5) Platelet Count 298x10^3/uL (140-400) 333x10^3/uL (140-400) Neutrophils (%) (Auto) 60% (31-73) 81% (31-73) Lymphocytes (%) (Auto) 29% (24-48) 14% (24-48) Monocytes (%) (Auto) 7% (0-9) 6% (0-9) Eosinophils (%) (Auto) 4% (0-3) 0% (0-3) Basophils (%) (Auto) 1% (0-3) 0% (0-3) Neutrophils # (Auto) 5.3x10^3uL (1.8-7.7) 8.9x10^3uL (1.8-7.7) Lymphocytes # (Auto) 2.6x10^3/uL (1.0-4.8) 1.5x10^3/uL (1.0-4.8) Monocytes # (Auto) 0.6x10^3/uL (0.0-1.1) 0.6x10^3/uL (0.0-1.1) Eosinophils # (Auto) 0.4x10^3/uL (0.0-0.7) 0.0x10^3/uL (0.0-0.7) Basophils # (Auto) 0.0x10^3/uL (0.0-0.2) 0.0x10^3/uL (0.0-0.2) Sodium Level 146mmol/L (136-145) 145mmol/L (136-145) Potassium Level 3.9mmol/L (3.5-5.1) 4.8mmol/L (3.5-5.1) Chloride Level 113mmol/L (98-107) 112mmol/L (98-107) Carbon Dioxide Level 21mmol/L (21-32) 19mmol/L (21-32) Anion Gap 12 (6-14) 14 (6-14) Blood Urea Nitrogen 17mg/dL (7-20) 21mg/dL (7-20) Creatinine 2.1mg/dL (0.6-1.0) 2.4mg/dL (0.6-1.0) Estimated GFR (Cockcroft-Gault) 26.6 22.8 Glucose Level 79mg/dL (70-99) 90mg/dL (70-99) Calcium Level 8.9mg/dL (8.5-10.1) 8.8mg/dL (8.5-10.1) Laboratory Tests Test 07/24/16 05:10 White Blood Count 11.0x10^3/uL (4.0-11.0) Red Blood Count 3.42x10^6/uL (3.50-5.40) Hemoglobin 9.8g/dL (12.0-15.5) Hematocrit 29.8% (36.0-47.0) Mean Corpuscular Volume 87fL (79-100) Mean Corpuscular Hemoglobin 29pg (25-35) Mean Corpuscular Hemoglobin Concent 33g/dL (31-37) Red Cell Distribution Width 15.7% (11.5-14.5) Platelet Count 333x10^3/uL (140-400) Neutrophils (%) (Auto) 81% (31-73) Lymphocytes (%) (Auto) 14% (24-48) Monocytes (%) (Auto) 6% (0-9) Eosinophils (%) (Auto) 0% (0-3) Basophils (%) (Auto) 0% (0-3) Neutrophils # (Auto) 8.9x10^3uL (1.8-7.7) Lymphocytes # (Auto) 1.5x10^3/uL (1.0-4.8) Monocytes # (Auto) 0.6x10^3/uL (0.0-1.1) Eosinophils # (Auto) 0.0x10^3/uL (0.0-0.7) Basophils # (Auto) 0.0x10^3/uL (0.0-0.2) Sodium Level 145mmol/L (136-145) Potassium Level 4.8mmol/L (3.5-5.1) Chloride Level 112mmol/L (98-107) Carbon Dioxide Level 19mmol/L (21-32) Anion Gap 14 (6-14) Blood Urea Nitrogen 21mg/dL (7-20) Creatinine 2.4mg/dL (0.6-1.0) Estimated GFR (Cockcroft-Gault) 22.8 Glucose Level 90mg/dL (70-99) Calcium Level 8.8mg/dL (8.5-10.1) Medications Current Medications Multi-Ingredient Mouthwash/Gargle (Gi Cocktail Single Dose) 15 ml 1X ONCE SWSW Last administered on 07/22/16 00:42; Start 07/22/16 at 01:00; Stop 07/22/16 at 01:01; Status DC Famotidine 20 mg 20 mg 1X ONCE IVP Last administered on 07/22/16 00:42; Start 07/22/16 at 01:00; Stop 07/22/16 at 01:01; Status DC Sodium Chloride (Iv Sodium Chloride 0.9% 500ml Bag) 500 ml @ 500 mls/hr 1X ONCE IV Last administered on 07/22/16 00:43; Start 07/22/16 at 01:00; Stop at 01:59; Status DC Labetalol HCl (Normodyne) 20 mg 1X ONCE IVP Last administered on 07/22/16 00: 43; Start 07/22/16 at 01:00; Stop 07/22/16 at 01:01; Status DC Labetalol HCl (Normodyne) 20 mg 1X ONCE IVP Last administered on 07/22/16 01: 43; Start 07/22/16 at 02:00; Stop 07/22/16 at 02:01; Status DC Ondansetron HCl (Zofran) 4 mg PRN Q8HRS PRN IV NAUSEA/VOMITING; Start 07/22/16 at 02:15; Stop 07/23/16 at 02:14; Status DC Morphine Sulfate 2 mg 2 mg PRN Q2HR PRN IV SEVERE PAIN Last administered on 00:04; Start 07/22/16 at 02:15; Stop 07/23/16 at 02:14; Status DC Sodium Chloride (Iv Sodium Chloride 0.9% 1000ml Bag) 1,000 ml @ 125 mls/hr Q8H IV Last administered on 07/22/16 23:30; Start 07/22/16 at 02:12; Stop at 02:11; Status DC Labetalol HCl (Normodyne) 20 mg PRN Q2HR PRN IVP HYPERTENSION, SEE COMMENTS Last administered on 07/24/16 03:01; Start 07/22/16 at 02:45 Acetaminophen (Tylenol) 500 mg QIDPRN PRN PO MILD PAIN / TEMP; Start 07/22/16 at 12:00 Amlodipine Besylate (Norvasc) 10 mg DAILY PO Last administered on 07/23/16 11: 40; Start 07/22/16 at 12:30 Lisinopril (Prinivil) 40 mg HS PO Last administered on 07/23/16 22:26; Start 07/22/16 at 21:00 Albuterol Sulfate (Ventolin Neb Soln) 2.5 mg PRN Q4HRS PRN NEB SHORTNESS OF BREATH; Start 07/22/16 at 12:00 Fluoxetine HCl (Prozac) 40 mg DAILY PO Last administered on 07/23/16 11:40; Start 07/22/16 at 12:30 Non-Formulary Medication 1 ml 1 ml [id number] IM ; Start 10/20/16 at 09:00; Status UNV Cefazolin Sodium/ Dextrose (Ancef 2gm Premix) 50 ml @ 100 mls/hr 1X PREOP PRN IV prophylaxis Last administered on 07/23/16 08:19; Start 07/23/16 at 06:00; Stop 07/23/16 at 18:00; Status DC Cellulose 1 each STK-MED ONCE .ROUTE ; Start 07/23/16 at 07:13; Stop 07/23/16 at 07:14; Status DC Bupivacaine HCl/ Epinephrine Bitart (Sensorcain-Mpf Epi 0.5%-1:175335) 30 ml STK -MED ONCE .ROUTE Last administered on 07/23/16 08:21; Start 07/23/16 at 07:13 ; Stop 07/23/16 at 07:14; Status DC Iohexol (Omnipaque 300 Mg/ml) 50 ml STK-MED ONCE .ROUTE Last administered on 08:21; Start 07/23/16 at 07:13; Stop 07/23/16 at 07:14; Status DC Glucagon (Glucagen) 1 mg STK-MED ONCE .ROUTE ; Start 07/23/16 at 07:13; Stop at 07:14; Status DC Ondansetron HCl (Zofran) 4 mg PRN Q6HRS PRN IV Nausea; Start 07/23/16 at 07:30 ; Stop 07/24/16 at 07:29; Status DC Fentanyl Citrate (Fentanyl 2ml Vial) 25 mcg PRN Q5MIN PRN IV MILD PAIN; Start 07/23/16 at 07:30; Stop 07/24/16 at 07:29; Status DC Fentanyl Citrate (Fentanyl 2ml Vial) 50 mcg PRN Q5MIN PRN IV MODERATE PAIN; Start 07/23/16 at 07:30; Stop 07/24/16 at 07:29; Status DC Morphine Sulfate 1 mg 1 mg PRN Q10MIN PRN IV SEVERE PAIN; Start 07/23/16 at 07: 30; Stop 07/24/16 at 07:29; Status DC Lactated Ringer's (Iv Lactated Ringers) 1,000 ml @ 30 mls/hr Q24H IV Last administered on 07/23/16t 09:52; Start 07/23/16 at 07:23; Stop 07/23/16 at 19:22 ; Status DC Lidocaine HCl 2 ml 1X PRN PRN ID IV START; Start 07/23/16 at 07:30; Stop at 07:29; Status DC Hydromorphone HCl (Dilaudid) 0.5 mg PRN Q10MIN PRN IV SEV PAIN,Second choice; Start 07/23/16 at 07:30; Stop 07/24/16 at 07:29; Status DC Prochlorperazine Edisylate (Compazine) 5 mg PACU PRN PRN IV NAUSEA; Start 07/23 at 07:30; Stop 07/24/16 at 07:29; Status DC Dexamethasone Sodium Phosphate (Decadron) 20 mg STK-MED ONCE .ROUTE ; Start at 07:23; Stop 07/23/16 at 07:24; Status DC Ondansetron HCl 4 mg 4 mg STK-MED ONCE .ROUTE ; Start 07/23/16 at 07:23; Stop at 07:24; Status DC Propofol (Diprivan) 20 ml @ As Directed STK-MED ONCE IV ; Start 07/23/16 at 07: 23; Stop 07/23/16 at 07:24; Status DC Lidocaine HCl 100 mg STK-MED ONCE .ROUTE ; Start 07/23/16 at 07:23; Stop at 07:24; Status DC Fentanyl Citrate (Fentanyl 2ml Vial) 100 mcg STK-MED ONCE .ROUTE ; Start at 07:23; Stop 07/23/16 at 07:24; Status DC Succinylcholine Chloride (Anectine) 200 mg STK-MED ONCE .ROUTE ; Start 07/23/16 at 07:23; Stop 07/23/16 at 07:24; Status DC Rocuronium [place] (Zemuron) 50 mg STK-MED ONCE .ROUTE ; Start 07/23/16 at 07:24 ; Stop 07/23/16 at 07:25; Status DC Glycopyrrolate (Robinul) 1 mg STK-MED ONCE .ROUTE ; Start 07/23/16 at 08:48; Stop 07/23/16 at 08:49; Status DC Neostigmine Methylsulfate 5 mg STK-MED ONCE .ROUTE ; Start 07/23/16 at 08:48; Stop 07/23/16 at 08:49; Status DC Fentanyl Citrate (Fentanyl 2ml Vial) 100 mcg STK-MED ONCE .ROUTE ; Start at 08:55; Stop 07/23/16 at 08:56; Status DC Acetaminophen/ Hydrocodone Bitart (Lortab 5/325) 1 tab PRN Q4HRS PRN PO PAIN Last administered on 07/23/16 22:26; Start 07/23/16 at 09:30 Enoxaparin Sodium (Lovenox 40mg Syringe) 40 mg DAILY SQ Last administered on 11:40; Start 07/23/16 at 09:30 Clonidine HCl 1 patch 1 patch WEEKLY TD Last administered on 07/23/16 14:13; Start 07/23/16 at 12:30 Sodium Chloride (Iv Sodium Chloride 0.9% 1000ml Bag) 1,000 ml @ 100 mls/hr Q10H IV Last administered on 07/23/16 22:30; Start 07/23/16 at 12:30 Active Scripts Active Reported Lisinopril 40 Mg Tablet 1 Tab PO HS Depo-Provera (Medroxyprogesterone Acetate) 150 Mg/1 Ml Disp.syrin 1 Ml IM [id number] Prozac (Fluoxetine Hcl) 40 Mg Capsule 1 Cap PO DAILY Amlodipine Besylate 10 Mg Tablet 10 Mg PO DAILY Ventolin Hfa Inhaler (Albuterol Sulfate) 18 Gm Hfa.aer.ad 2 Puff INH Q4HRS PRN Acetaminophen 500 Mg Tablet 500 Mg PO PRN Vitals/I & O Vital Sign - Last 24 Hours 07/23/16 07/23/16 07/23/16 07/23/16 09:08 09:20 09:23 09:39 Temp 98.3 98.3 98.3 98.3 98.3 98.3 Pulse 90 98 86 Resp B/P 219/123 201/100 191/95 Pulse Ox 100 100 100 O2 Delivery Room Air Mask Simple Mask Simple Mask O2 Flow Rate 8 8 8 8 07/23/16 07/23/16 07/23/16 07/23/16 09:53 10:08 10:15 11:00 Temp 98.8 98.8 97.6 98.8 98.8 97.6 Pulse 84 86 90 Resp 14 B/P 166/98 169/90 165/106 Pulse Ox 94 93 92 O2 Delivery Room Air Room Air Room Air Room Air 07/23/16 07/23/16 07/23/16 07/23/16 11:30 11:40 11:50 12:08 Temp 97.5 97.5 97.5 97.5 97.5 97.5 Pulse 84 84 80 103 Resp 14 B/P 166/106 166/106 173/108 115/109 Pulse Ox 94 95 93 O2 Delivery Room Air Room Air Room Air 07/23/16 07/23/16 07/23/16 07/23/16 12:25 13:30 14:58 16:00 Temp 97.5 97.5 97.5 96.6 97.5 97.5 97.5 96.6 Pulse 79 78 85 91 Resp 14 B/P 167/109 162/94 154/94 163/101 Pulse Ox 97 89 94 96 O2 Delivery Room Air Room Air Room Air Room Air 07/23/16 07/23/16 07/23/16 07/23/16 19:00 20:00 22:26 22:26 Temp 98.1 98.1 Pulse 83 93 Resp 24 B/P 167/98 170/104 Pulse Ox 96 O2 Delivery Room Air Room Air Room Air 07/23/16 07/23/16 07/23/16 07/24/16 22:30 23:00 23:26 03:00 Temp 98.2 97.9 98.2 98.2 97.9 98.2 Pulse 93 86 86 Resp 20 18 30 B/P 170/104 170/94 165/102 Pulse Ox 97 98 98 O2 Delivery Room Air Room Air Room Air 07/24/16 03:01 Pulse 86 B/P 165/102 Intake and Output 07/23/16 07/23/16 07/24/16 15:00 23:00 07:00 Intake Total 1370 ml 480 ml Output Total 25 ml 0 ml Balance 1345 ml 480 ml 0 ml KENIA WINSLOW MD Jul 24, 2016 07:59
[2016-07-24] MEDS: IV NORMAL SALINE 1000ML BAG 1,000 ML IV SCH ×2 (08:15→11:21)
[2016-07-24] MEDS: AMLODIPINE BESYLATE 10 MG TABLET PO SCH (09:13)
[2016-07-24] MEDS: FLUOXETINE HCL 20 MG CAPSULE PO SCH (09:13)
[2016-07-24] MEDS: ENOXAPARIN 40 MG/0.4 ML DISP.SYRIN. SQ SCH (09:13)
[2016-07-24 11:00] VITALS: BP 132/84
[2016-07-24] MEDS ORDERED: MORPHINE SULFATE 2 MG/ML DISP.SYRIN. IV PRN (11:00)
--- NOTE | 2016-07-24 11:12 | PDOC ---
Renal-Progress Notes Subjective Notes Notes SOMNOLENT History of Present Illness Hx of present illness STABLE Vitals Vitals Vital Signs Date Time Temp Pulse Resp B/P Pulse Ox O2 Delivery O2 Flow Rate FiO2 07/24/16 09:13 86 165/102 07/24/16 07:00 97.8 20 97 Room Air 97.8 07/23/16 09:39 8 Weight Weight [ ] I.O. Intake and Output Intake and Output 07/24/16 07:00 Intake Total 1850 ml Output Total 25 ml Balance 1825 ml Intake Oral 600 ml IV Total 1250 ml Output Urine Total 0 ml Estimated Blood Loss 25 ml # Voids 1 Labs Labs Laboratory Tests Test 07/24/16 05:10 White Blood Count 11.0x10^3/uL (4.0-11.0) Red Blood Count 3.42x10^6/uL (3.50-5.40) Hemoglobin 9.8g/dL (12.0-15.5) Hematocrit 29.8% (36.0-47.0) Mean Corpuscular Volume 87fL (79-100) Mean Corpuscular Hemoglobin 29pg (25-35) Mean Corpuscular Hemoglobin Concent 33g/dL (31-37) Red Cell Distribution Width 15.7% (11.5-14.5) Platelet Count 333x10^3/uL (140-400) Neutrophils (%) (Auto) 81% (31-73) Lymphocytes (%) (Auto) 14% (24-48) Monocytes (%) (Auto) 6% (0-9) Eosinophils (%) (Auto) 0% (0-3) Basophils (%) (Auto) 0% (0-3) Neutrophils # (Auto) 8.9x10^3uL (1.8-7.7) Lymphocytes # (Auto) 1.5x10^3/uL (1.0-4.8) Monocytes # (Auto) 0.6x10^3/uL (0.0-1.1) Eosinophils # (Auto) 0.0x10^3/uL (0.0-0.7) Basophils # (Auto) 0.0x10^3/uL (0.0-0.2) Sodium Level 145mmol/L (136-145) Potassium Level 4.8mmol/L (3.5-5.1) Chloride Level 112mmol/L (98-107) Carbon Dioxide Level 19mmol/L (21-32) Anion Gap 14 (6-14) Blood Urea Nitrogen 21mg/dL (7-20) Creatinine 2.4mg/dL (0.6-1.0) Estimated GFR (Cockcroft-Gault) 22.8 Glucose Level 90mg/dL (70-99) Calcium Level 8.8mg/dL (8.5-10.1) Review of Systems Constitutional: yes: no symptom reported Gastrointestional: Yes: abdominal pain, nausea Musculoskeletal: Yes: no symptom reported Physical Exam General Appearance: no apparent distress Skin: warm Respiratory: decreased breath sounds Heart: S1S2 Abdomen: soft, bowel sounds present Assessment Assessment IMP ELENA WITH CR OF 2.4 CKD STAGE 3 WITH CR OF 1.7-2.0 DEHYDRATION PANCREATITIS S/P CHOLY PLAN ADD NORVASC CONT IVF'S WILL FOLLOW ROGELIO WORTHY MD Jul 24, 2016 11:12
[2016-07-24] MEDS ORDERED: METOPROLOL TART IMMED RELEASE 25 MG TABLET PO SCH (12:00)
--- NOTE | 2016-07-24 12:12 | PDOC ---
Provider Note Provider Note SURG POD 1 l/s jann with grams no c/o home today f/u in office Saturday 07/29 ELI WHATLEY MD Jul 24, 2016 12:12
[2016-07-24 14:30] VITALS: BP 127/70
[2016-07-25] MEDS ORDERED: AMLODIPINE BESYLATE 5 MG TABLET PO SCH (09:00)
--- NOTE | 2016-07-26 14:56 | PATHOLOGY ---
PATHOLOGY REPORT * * * * * * * * FINAL DIAGNOSIS: Gallbladder, laparoscopic cholecystectomy: - Cholesterolosis. - Chronic cholecystitis. COMMENT: There are no calculi identified within the gallbladder lumen or specimen container. There is no evidence of malignancy. (JPM:; d/t: 07/26/16) REPORT ELECTRONICALLY SIGNED BY: Mono Menon M.D. DATE/TIME: 07/26/2016 14:52 * * * * * * * * GROSS PATHOLOGY: Received in formalin labeled "Natacha Calle, gallbladder," is a 6.1 x 3.1 x 2.6 cm, previously punctured gallbladder with bile-stained serosal surfaces. Opening the gallbladder reveals a velvety, bile-stained mucosa with moderate, diffuse cholesterolosis and an average wall thickness of 0.1 cm. Calculi are not present and no masses are noted grossly. Conference Interpreter sections from the body and fundus are submitted along with the proximal margin in cassette A1. (CAA; 07/25/2016) INITIAL CPT CODE(S): A; 84539 Professional services performed by [facility] [place] [place] [address] Technical services performed by [facility] at [address] [place] [address]. SPECIMEN(S) RECEIVED: A.Gallbladder CLINICAL HISTORY: Pancreatitis PATIENT: NATACHA CALLE /AGE: 11 1980 (Age: 36) PATIENT #: [id number] ALT CASE #: SPECIMEN COLLECTION DATE: 07/23/2016 SPECIMEN RECEIVED DATE: 07/25/2016 [facility] - [id number] [place] [address] - PHONE: [phone] * * * END OF REPORT * * *
[2016-10-20] MEDS ORDERED: NON FORMULARY ITEM (Medroxyprogesterone Acetate (Depo-Provera) 1 ML) IM SCH (09:00)
== END 2016-07-24 16:18 | disposition left against medical advice (07) | DRG 417 ==
LOC: ER 00:02 → 5 SOUTH 02:10
PROVIDERS: ADMIT Internal Medicine; ATTEND Internal Medicine
PROC: BF101ZZ Fluoroscopy of Bile Ducts using Low Osmolar Contrast (ICD-10-PCS; 2016-07-23)
PROC: 0FT44ZZ Resection of Gallbladder, Percutaneous Endoscopic Approach (ICD-10-PCS; principal; 2016-07-23 08:00)
DX: K85.10 Biliary acute pancreatitis without necrosis or infection (principal); N17.1 Acute kidney failure with acute cortical necrosis; E43 Unspecified severe protein-calorie malnutrition; E87.0 Hyperosmolality and hypernatremia; K80.20 Calculus of gallbladder without cholecystitis without obstruction; K86.1 Other chronic pancreatitis; I12.9 Hypertensive chronic kidney disease with stage 1 through stage 4 chronic kidney disease, or unspecified chronic kidney disease; E66.9 Obesity, unspecified; E86.0 Dehydration; F81.9 Developmental disorder of scholastic skills, unspecified; J45.909 Unspecified asthma, uncomplicated; K66.0 Peritoneal adhesions (postprocedural) (postinfection); F32.9 Major depressive disorder, single episode, unspecified; F41.9 Anxiety disorder, unspecified; N18.3 Chronic kidney disease, stage 3 (moderate); Z82.49 Family history of ischemic heart disease and other diseases of the circulatory system; Z68.39 Body mass index [BMI] 39.0-39.9, adult; Z83.3 Family history of diabetes mellitus; Z79.899 Other long term (current) drug therapy; Z79.82 Long term (current) use of aspirin
CPT/HCPCS: 36415; 74176; 74300; 76700; 80048; 80053; 81001; 81025; 83690; 85027; 88304; 96361; 96374; 96375; 96376; C1769; C1782; J0330; J0690; J1100; J1610; J1650; J2270; J2405; J2704; J2710; J3010; J3490; J7030; J7040; J7120; Q9967; S0028; 99285-25

== ENCOUNTER 2016-08-16 15:11 | Emergency (ER) | payer OTHER ==
[~2016-08-16] VITALS: Ht 157.5 cm; Wt 90.7 kg
[~2016-08-16 15:11] MED LIST changes: +LISI10TA2 PO; +LOSA100T6 PO; +METO50TA10 PO
[2016-08-16 15:13] VITALS: BP 191/119
[2016-08-16] MEDS ORDERED: ORPH100T PO (15:32)
[2016-08-16] MEDS ORDERED: TRAM1TAB4 PO (15:32)
--- NOTE | 2016-08-16 15:32 | PHYS DOC ---
Past Medical History Past Medical History: Asthma, Hypertension, Pancreatitis Additional Past Medical Histor: learning disability Past Surgical History: Cholecystectomy Alcohol Use: None Drug Use: None Adult General Chief Complaint Chief Complaint: LOWER BACK PAIN OR INJURY HPI HPI Patient is a 36 year old female, with a history of chronic low back pain as well as hypertension, comes to the emergency room today with complaint of ongoing low back pain for "several months". Patient reports his pain is on the right side of her back. Again, patient states that it does not radiate. She denies saddle anesthesia or incontinence of urine or bowel. Patient denies any history of bone forming disorders. Patient states provocative maneuvers are primarily movement. She reports pale urination of pain with rest. Patient states she typically takes 800 mg ibuprofen tablets without resolution of her pain here today. Of incidental note, patient does have an established history of hypertension which is marginally controlled with medication. She does have a primary care doctor at [facility]. Patient denies flank pain, fevers, chills, dysuria , hematuria. Review of Systems Review of Systems Constitutional: Denies fever or chills [] Eyes: Denies change in visual acuity, redness, or eye pain [] HENT: Denies nasal congestion or sore throat [] Respiratory: Denies cough or shortness of breath [] Cardiovascular: No additional information not addressed in HPI [] GI: Denies abdominal pain, nausea, vomiting, bloody stools or diarrhea [] : Denies dysuria or hematuria [] Musculoskeletal: Denies back pain or joint pain [] Integument: Denies rash or skin lesions [] Neurologic: Denies headache, focal weakness or sensory changes [] Endocrine: Denies polyuria or polydipsia [] Allergies Allergies Allergies Coded Allergies Type Severity Reaction Last Updated Verified No Known Drug Allergies 12/08/15 No Physical Exam Physical Exam Constitutional: Well developed, well nourished, no acute distress, non-toxic appearance. HENT: Normocephalic, atraumatic, bilateral external ears normal, oropharynx moist, no oral exudates, nose normal. [] Eyes: PERRLA, EOMI, conjunctiva normal, no discharge. [] Neck: Normal range of motion, no tenderness, supple, no stridor. [] Cardiovascular:Heart rate regular rhythm, no murmur [] Lungs & Thorax: Bilateral breath sounds clear to auscultation [] Abdomen: Bowel sounds normal, soft, no tenderness, no masses, no pulsatile masses. [] Skin: Warm, dry, no erythema, no rash. [] Back: Patient's back is normal in appearance N overlying skin lesions suggestive of shingles. Patient has no CVA tenderness. There is tenderness to palpation to the right paraspinous soft tissues at the level of L3-L5. There is no palpable defect or spasm. There is no midline tenderness. Extremities: No tenderness, no cyanosis, no clubbing, ROM intact, no edema. [] Neurologic: Alert and oriented X 3, normal motor function, normal sensory function, no focal deficits noted. Lower extremity strength is equal bilaterally. There are no dystrophic changes to lower extremities. Psychologic: Affect normal, judgement normal, mood normal. [] Current Patient Data Vital Signs Vital Signs Date Time Temp Pulse Resp B/P Pulse Ox O2 Delivery O2 Flow Rate FiO2 08/16/16 15:13 97.9 77 16 191/119 100 Room Air 97.9 EKG EKG [] Radiology/Procedures Radiology/Procedures [] Course & Med Decision Making Course & Med Decision Making Pertinent Labs and Imaging studies reviewed. (See chart for details) [] Dragon Disclaimer Dragon Disclaimer This electronic medical record was generated, in whole or in part, using a voice recognition dictation system. Departure Departure Impression: Primary Impression: Chronic low back pain Disposition: 01 HOME, SELF-CARE Condition: GOOD Referrals: NO PCP (PCP) Patient Instructions: Chronic Back Pain Additional Instructions: 1. Take the medications prescribed. 2. Review the discharge instructions provided for self-care and reasons to return to the emergency department. 3. Contact your primary care doctor's office in the morning to schedule follow- up appointment for reevaluation within the next 7-10 days. Scripts Orphenadrine Citrate 100 Mg Tablet.er1 Tab PO BID muscle relaxer #14 TAB Ref 1 Prov:MARILYN GARRISON 08/16/16 Tramadol Hcl/Acetaminophen (Tramadol-Acetaminophn 37.5-325)1 Each Tablet1 Tab PO Q6H back pain #15 TAB Ref 0 Prov:MARILYN GARRISON 08/16/16 Problem Qualifiers Primary Impression: Chronic low back pain Back pain laterality: right Sciatica presence: without sciatica Qualified Code: M54.5 - Low back pain MARILYN GARRISON Aug 16, 2016 15:32
== END 2016-08-16 15:42 | disposition home or self-care (01) ==
LOC: ER 15:11
DX: G89.29 Other chronic pain (principal); M54.5 Low back pain; J45.909 Unspecified asthma, uncomplicated; I10 Essential (primary) hypertension
CPT/HCPCS: 99283

== ENCOUNTER 2016-11-15 21:34 | Emergency (ER) | payer OTHER ==
[~2016-11-15] VITALS: Ht 160 cm; Wt 86.2 kg
[~2016-11-15 21:34] MED LIST changes: +ORPH100T PO; +TRAM1TAB4 PO
--- NOTE | 2016-11-15 21:46 | PHYS DOC ---
Past Medical History Past Medical History: Asthma, Hypertension, Kidney Stone, Pancreatitis Additional Past Medical Histor: learning disability Past Surgical History: Cholecystectomy Alcohol Use: None Drug Use: None Adult General HPI HPI Patient is a 36 year old female who presents with one day history of left flank pain mild to moderate in severity no radiation of the pain; consistent with her prior kidney stone. She did have intervention in the last couple months with urologist but she can't member the name. Denies nausea vomiting or fever. Admits to chronic renal insufficiency. Denies diabetes. Review of Systems Review of Systems Constitutional: Denies fever or chills [] Eyes: Denies change in visual acuity, redness, or eye pain [] HENT: Denies nasal congestion or sore throat [] Respiratory: Denies cough or shortness of breath [] Cardiovascular: No additional information not addressed in HPI [] GI: Denies abdominal pain, nausea, vomiting, bloody stools or diarrhea [] : Denies dysuria or hematuria [] Musculoskeletal: Denies back pain or joint pain [] Integument: Denies rash or skin lesions [] Neurologic: Denies headache, focal weakness or sensory changes [] Endocrine: Denies polyuria or polydipsia [] Current Medications Current Medications Current Medications Medications (Trade) Dose Ordered Sig/Bety Start Time Stop Time Status Last Admin Dose Admin Hydromorphone HCl (Dilaudid) 0.5 mg 1X ONCE 11/15/16 22:00 11/15/16 22:01 DC 11/15/16 23:07 0.5 MG Labetalol HCl (Normodyne) 10 mg 1X ONCE 11/15/16 23:00 11/15/16 23:01 DC 11/15/16 23:10 10 MG Ondansetron HCl (Zofran) 4 mg 1X ONCE 11/15/16 22:00 11/15/16 22:01 DC 11/15/16 23:05 4 MG Sodium Chloride 1,000 ml @ 1,000 mls/hr 1X ONCE 11/15/16 22:00 11/15/16 22:59 DC 11/15/16 23:02 1,000 MLS/HR Allergies Allergies Allergies Coded Allergies Type Severity Reaction Last Updated Verified No Known Drug Allergies 09/02/16 No Physical Exam Physical Exam Constitutional: Well developed, well nourished, no acute distress, non-toxic appearance. [] HENT: Normocephalic, atraumatic, bilateral external ears normal, oropharynx moist, no oral exudates, nose normal. [] Eyes: PERRLA, EOMI, conjunctiva normal, no discharge. [] Neck: Normal range of motion, no tenderness, supple, no stridor. [] Cardiovascular:Heart rate regular rhythm, no murmur [] Lungs & Thorax: Bilateral breath sounds clear to auscultation [] Abdomen: Bowel sounds normal, soft, no tenderness, no masses, no pulsatile masses. [] Skin: Warm, dry, no erythema, no rash. [] Back: No tenderness, no CVA tenderness. [] Extremities: No tenderness, no cyanosis, no clubbing, ROM intact, no edema. [] Neurologic: Alert and oriented X 3, normal motor function, normal sensory function, no focal deficits noted. [] Psychologic: Affect normal, judgement normal, mood normal. [ All review of systems are negative except as mentioned in the history of present illness] Current Patient Data Vital Signs Vital Signs Date Time Temp Pulse Resp B/P (MAP) Pulse Ox O2 Delivery O2 Flow Rate FiO2 11/15/16 23:10 71 227/125 11/15/16 23:07 12 100 Room Air 11/15/16 21:37 98.1 98.1 Lab Values Laboratory Tests Test 11/15/16 21:40 11/15/16 22:22 11/15/16 22:30 POC Urine HCG, Qualitative Hcg negative (Negative) Sodium Level 142 mmol/L (136-145) Potassium Level 4.8 mmol/L (3.5-5.1) Chloride Level 110 mmol/L (98-107) H Carbon Dioxide Level 19 mmol/L (21-32) L Anion Gap 13 (6-14) Blood Urea Nitrogen 26 mg/dL (7-20) H Creatinine 2.6 mg/dL (0.6-1.0) H Estimated GFR (Cockcroft-Gault) 20.8 Glucose Level 98 mg/dL (70-99) Calcium Level 8.4 mg/dL (8.5-10.1) L Urine Collection Type Unknown Urine Color Yellow Urine Clarity Clear Urine pH 6.5 Urine Specific [place] 1.015 Urine Protein >=300 mg/dL (NEG-TRACE) Urine Glucose (UA) Negative mg/dL (NEG) Urine Ketones (Stick) Negative mg/dL (NEG) Urine Blood Trace (NEG) Urine Nitrite Negative (NEG) Urine Bilirubin Negative (NEG) Urine Urobilinogen Dipstick 0.2 mg/dL (0.2 mg/dL) Urine Leukocyte Esterase Negative (NEG) Urine RBC 1-2 /HPF (0-2) Urine WBC Occ /HPF (0-4) Urine Squamous Epithelial Cells Many /LPF Urine Bacteria Few /HPF (0-FEW) Urine Mucus Slight /LPF Laboratory Tests 11/15/16 22:22 EKG EKG [] Radiology/Procedures Radiology/Procedures CT scan abdomen and pelvis [no obvious ureterolithiasis, there is a calcification within the left renal pelvis] Course & Med Decision Making Course & Med Decision Making Pertinent Labs and Imaging studies reviewed. (See chart for details) Plan will be to check kidney function, urinalysis, CT scan abdomen and pelvis and treat symptoms. Crit is 2.6 which is at baseline and her chronic renal insufficiency. Urinalysis did not show any acute UTI, recommend follow-up with urology. [] Dragon Disclaimer Dragon Disclaimer This electronic medical record was generated, in whole or in part, using a voice recognition dictation system. Departure Departure Impression: Primary Impression: Acute left flank pain Additional Impression: Chronic hypertension Disposition: 01 HOME, SELF-CARE Condition: IMPROVED Referrals: UNKNOWN PCP NAME (PCP) Patient Instructions: Flank Pain, [id number], Kidney Stones, [id number] Additional Instructions: Please follow-up with a local primary care physician and follow-up with urology at . There appears to be a calcification in the left kidney that needs to be followed up on but there does not appear to be kidney stone in the left ureter. Scripts Oxycodone/Apap 5-325 (PERCOCET 5-325 MG TABLET) 1 Each Tablet 1-2 TAB PO Q4-6HRS for PAIN, #12 TAB Prov: GAUDENCIO KIMBLE MD 11/16/16 Problem Qualifiers GAUDENCIO KIMBLE MD Nov 15, 2016 21:46
[2016-11-15] MEDS ORDERED: ONDANSETRON PF 4 MG/2 ML VIAL. IV ONE (22:00)
[2016-11-15] MEDS ORDERED: IV NORMAL SALINE 1000ML BAG 1,000 ML IV ONE (22:00)
[2016-11-15] MEDS ORDERED: HYDROmorphone 2 MG/ML VIAL IV ONE (22:00)
[2016-11-15 22:40] LABS: BILIRUBIN,URINE NEGATIVE (NEG); GLUCOSE,URINE NEGATIVE (NEG); NITRITE,URINE NEGATIVE (NEG); PH,URINE 6.5; PROTEIN,URINE >=300 mg/dL (NEG-TRACE); UROBILINOGEN,URINE 0.2 mg/dL (0.2 mg/dL)
[2016-11-15 22:44] LABS: CALCIUM 8.4 mg/dL (8.5-10.1); CREATININE 2.6 mg/dL (0.6-1.0); GFR 20.8; POTASSIUM 4.8 mmol/L (3.5-5.1)
[2016-11-15 22:48] LABS: BACTERIA,URINE FEW /HPF (0-FEW); SQUAMOUS EPITHELIAL CELL,UR MANY /LPF; WBC,URINE OCC /HPF (0-4)
[2016-11-15] MEDS ORDERED: LABETALOL 20 MG/4 ML DISP.SYRIN. IVP ONE (23:00)
[2016-11-16] MEDS ORDERED: OXYC-323 PO (00:02)
--- NOTE | 2016-11-16 00:27 | RAD ---
INDICATION: left flank pain COMPARISON: August 10, 2016 TECHNIQUE: Axial CT images were obtained through the abdomen and pelvis without intravenous contrast. Contrast One or more of the following individualized dose reduction techniques were utilized for this examination: 1. Automated exposure control; 2. Adjustment of the mA and/or kV according to patient size; 3. Use of iterative reconstruction technique. FINDINGS: Abdomen: Chest Base: Partially imaged without gross abnormality. Vessels: Mild calcific atherosclerosis. Liver/Biliary: Postcholecystectomy changes. Pancreas: Region of fullness within the pancreatic head with low attenuation region measuring approximately 16 mm. Spleen: Normal. Kidneys/Adrenal: 12 mm left renal stone. Mild prominence left extrarenal pelvis. Atrophic left kidney. Mildly prominent right extrarenal pelvis. No radiopaque obstructive ureter stone. GI: Appendix does not appear grossly inflamed. No dilated loops of bowel to suggest obstruction. Pelvis: Bladder: No definite adjacent inflammation. Degenerative changes spine. IMPRESSION: 1. Fullness of the pancreatic head and uncinate process with a suspected cystic structure within. Given the patient's history of pancreatitis this could be secondary to pseudocyst formation. Given the fullness within the region is possible that the patient has current pancreatitis but correlation with symptoms and lab markers is needed. Would also obtain a follow-up to ensure this decreases to exclude other causes of cystic pancreatic lesion. 2. No evidence of obstructive ureter stone or appendicitis. 3. Nonobstructive left renal stone Electronically signed by: Reinaldo Hunter MD (11/16/2016 12:23 AM) [facility]
[2016-11-16 01:00] LABS: BASO # 0.1 x10^3/uL (0.0-0.2); BASO % 1 % (0-3); EOS % 2 % (0-3); HEMATOCRIT 35.7 % (36.0-47.0); HEMOGLOBIN 11.9 g/dL (12.0-15.5); LYMPH # 2.3 x10^3/uL (1.0-4.8); LYMPH % 26 % (24-48); MEAN CORPUSCULAR HEMOGLOBIN 30 pg (25-35); MEAN CORPUSCULAR HGB CONC 34 g/dL (31-37); MEAN CORPUSCULAR VOLUME 90 fL (79-100); MONO % 6 % (0-9); NEUT % 65 % (31-73); PLATELET COUNT 225 x10^3/uL (140-400); RED BLOOD COUNT 3.97 x10^6/uL (3.50-5.40); RED CELL DISTRIBUTION WIDTH 14.3 % (11.5-14.5)
[2016-11-16] MEDS: HYDROmorphone 2 MG/ML VIAL IV PRN ×2 (01:12→01:56)
[2016-11-16 02:00] VITALS: BP 215/111
== END 2016-11-16 02:32 | disposition home or self-care (01) ==
LOC: ER 21:34
DX: R10.9 Unspecified abdominal pain (principal); I12.9 Hypertensive chronic kidney disease with stage 1 through stage 4 chronic kidney disease, or unspecified chronic kidney disease; N18.9 Chronic kidney disease, unspecified; J45.909 Unspecified asthma, uncomplicated; Z87.442 Personal history of urinary calculi; Z90.49 Acquired absence of other specified parts of digestive tract; Z87.19 Personal history of other diseases of the digestive system
CPT/HCPCS: 36415; 74176; 80048; 81001; 81025; 83690; 85027; 96361; 96374; 96375; 96376; 99285; J1170; J2405; J3490; J7030

== ENCOUNTER 2017-01-30 18:38 | Emergency (ER) | payer OTHER ==
[~2017-01-30] VITALS: Ht 160 cm; Wt 86.2 kg
[~2017-01-30 18:38] MED LIST changes: -METO50TA10 PO; +METO50TA29 PO; +OXYC-323 PO
[2017-01-30] MEDS ORDERED: IV NORMAL SALINE 1000ML BAG 1,000 ML IV SCH (21:23)
[2017-01-30 21:30] LABS: BASO # 0.1 x10^3/uL (0.0-0.2); BASO % 1 % (0-3); EOS % 1 % (0-3); HEMATOCRIT 39.7 % (36.0-47.0); HEMOGLOBIN 12.9 g/dL (12.0-15.5); LYMPH # 1.9 x10^3/uL (1.0-4.8); LYMPH % 21 % (24-48); MEAN CORPUSCULAR HEMOGLOBIN 29 pg (25-35); MEAN CORPUSCULAR HGB CONC 33 g/dL (31-37); MEAN CORPUSCULAR VOLUME 89 fL (79-100); MONO % 8 % (0-9); NEUT % 69 % (31-73); PLATELET COUNT 242 x10^3/uL (140-400); RED BLOOD COUNT 4.44 x10^6/uL (3.50-5.40); RED CELL DISTRIBUTION WIDTH 14.4 % (11.5-14.5); WHITE BLOOD COUNT 8.9 x10^3/uL (4.0-11.0)
[2017-01-30] MEDS ORDERED: ONDANSETRON PF 4 MG/2 ML VIAL. IV ONE (21:30)
[2017-01-30] MEDS ORDERED: cloNIDine HCL 0.1 MG TABLET PO ONE (21:30)
[2017-01-30] MEDS ORDERED: fentaNYL PF VIAL 100 MCG/2 ML VIAL IV ONE (21:30)
[2017-01-30 21:31] LABS: BILIRUBIN,URINE NEGATIVE (NEG); GLUCOSE,URINE NEGATIVE (NEG); NITRITE,URINE NEGATIVE (NEG); PROTEIN,URINE 100 mg/dL (NEG-TRACE); UROBILINOGEN,URINE 0.2 mg/dL (0.2 mg/dL)
[2017-01-30 21:42] LABS: BACTERIA,URINE FEW /HPF (0-FEW); RBC,URINE OCC /HPF (0-2); SQUAMOUS EPITHELIAL CELL,UR MOD /LPF
--- NOTE | 2017-01-30 21:49 | PHYS DOC ---
Past Medical History Past Medical History: Asthma, Hypertension, Kidney Stone, Pancreatitis Additional Past Medical Histor: learning disability Past Surgical History: Cholecystectomy Additional Past Surgical Histo: STONE REMOVAL Additional Information: non smoker Alcohol Use: None Drug Use: None Adult General Chief Complaint Chief Complaint: FLANK PAIN HPI HPI Patient is a 36 year old female who presents with abdominal pain. Pain started yesterday, intermittent. Pain is more mid to left upper quadrant. No recent travel. No nausea vomiting or diarrhea. No fever. No cough cold or respiratory complaints. No chest pain. He is followed by a doctor at the [facility]. Denies any burning or blood in her urine. Review of Systems Review of Systems Constitutional: Denies fever or chills Eyes: Denies change in visual acuity, redness, or eye pain HENT: Denies nasal congestion or sore throat Respiratory: Denies cough or shortness of breath Cardiovascular: No chest pain GI: POS abdominal pain,DENIES nausea, vomiting, bloody stools or diarrhea : Denies dysuria or hematuria Musculoskeletal: Denies back pain or joint pain Integument: Denies rash or skin lesions Neurologic: Denies headache, focal weakness or sensory changes Current Medications Current Medications Current Medications Medications (Trade) Dose Ordered Sig/Bety Start Time Stop Time Status Last Admin Dose Admin Clonidine HCl (Catapres) 0.2 mg 1X ONCE 01/30/17 21:30 01/30/17 21:31 DC 01/30/17 21:40 0.2 MG Fentanyl Citrate (Fentanyl 2ml Vial) 25 mcg 1X ONCE 01/30/17 21:30 01/30/17 21:31 DC 01/30/17 21:40 25 MCG Ondansetron HCl (Zofran) 4 mg 1X ONCE 01/30/17 21:30 01/30/17 21:31 DC 01/30/17 21:40 4 MG Sodium Chloride 1,000 ml @ 1,000 mls/hr Q1H 01/30/17 21:23 01/30/17 22:22 DC 01/30/17 21:40 1,000 MLS/HR Allergies Allergies Allergies Coded Allergies Type Severity Reaction Last Updated Verified No Known Drug Allergies 09/02/16 No Physical Exam Physical Exam Constitutional: Well developed, well nourished, no acute distress, non-toxic appearance. HENT: Normocephalic, atraumatic, bilateral external ears normal, oropharynx moist, no oral exudates, nose normal. Eyes: PERRLA, EOMI, conjunctiva normal, no discharge. Neck: Normal range of motion, no tenderness, supple, no stridor. Cardiovascular:Heart rate regular rhythm, no murmur Lungs & Thorax: Bilateral breath sounds clear to auscultation Abdomen: Bowel sounds normal, soft, tenderness epigastric area no rebound or guarding., no masses, no pulsatile masses. No flank pain. Skin: Warm, dry, no erythema, no rash. Back: No tenderness, no CVA tenderness. Extremities: No tenderness, no cyanosis, no clubbing, ROM intact, no edema. Neurologic: Alert and oriented X 3, normal motor function, normal sensory function, no focal deficits noted. Psychologic: Affect normal, judgement normal, mood normal. Current Patient Data Vital Signs Vital Signs Date Time Temp Pulse Resp B/P (MAP) Pulse Ox O2 Delivery O2 Flow Rate FiO2 01/30/17 23:15 68 18 143/81 (101) 100 01/30/17 21:03 97.9 97.9 Lab Values Laboratory Tests Test 01/30/17 20:00 01/30/17 21:19 Urine Collection Type Unknown Urine Color Yellow Urine Clarity Clear Urine pH 6.0 Urine Specific [place] 1.015 Urine Protein 100 mg/dL (NEG-TRACE) Urine Glucose (UA) Negative mg/dL (NEG) Urine Ketones (Stick) Negative mg/dL (NEG) Urine Blood Trace (NEG) Urine Nitrite Negative (NEG) Urine Bilirubin Negative (NEG) Urine Urobilinogen Dipstick 0.2 mg/dL (0.2 mg/dL) Urine Leukocyte Esterase Trace (NEG) Urine RBC Occ /HPF (0-2) Urine WBC 1-4 /HPF (0-4) Urine Squamous Epithelial Cells Mod /LPF Urine Bacteria Few /HPF (0-FEW) Urine Mucus Slight /LPF White Blood Count 8.9 x10^3/uL (4.0-11.0) Red Blood Count 4.44 x10^6/uL (3.50-5.40) Hemoglobin 12.9 g/dL (12.0-15.5) Hematocrit 39.7 % (36.0-47.0) Mean Corpuscular Volume 89 fL (79-100) Mean Corpuscular Hemoglobin 29 pg (25-35) Mean Corpuscular Hemoglobin Concent 33 g/dL (31-37) Red Cell Distribution Width 14.4 % (11.5-14.5) Platelet Count 242 x10^3/uL (140-400) Neutrophils (%) (Auto) 69 % (31-73) Lymphocytes (%) (Auto) 21 % (24-48) L Monocytes (%) (Auto) 8 % (0-9) Eosinophils (%) (Auto) 1 % (0-3) Basophils (%) (Auto) 1 % (0-3) Neutrophils # (Auto) 6.2 x10^3uL (1.8-7.7) Lymphocytes # (Auto) 1.9 x10^3/uL (1.0-4.8) Monocytes # (Auto) 0.7 x10^3/uL (0.0-1.1) Eosinophils # (Auto) 0.1 x10^3/uL (0.0-0.7) Basophils # (Auto) 0.1 x10^3/uL (0.0-0.2) Maternal Serum HCG Beta Subunit < 1 mIU/mL (0-5) Sodium Level 141 mmol/L (136-145) Potassium Level 4.9 mmol/L (3.5-5.1) Chloride Level 108 mmol/L (98-107) H Carbon Dioxide Level 20 mmol/L (21-32) L Anion Gap 13 (6-14) Blood Urea Nitrogen 42 mg/dL (7-20) H Creatinine 2.6 mg/dL (0.6-1.0) H Estimated GFR (Cockcroft-Gault) 20.8 BUN/Creatinine Ratio 16 (6-20) Glucose Level 82 mg/dL (70-99) Calcium Level 9.1 mg/dL (8.5-10.1) Total Bilirubin 0.2 mg/dL (0.2-1.0) Aspartate Amino Transferase (AST) 19 U/L (15-37) Alanine Aminotransferase (ALT) 23 U/L (14-59) Alkaline Phosphatase 112 U/L (46-116) Total Protein 7.3 g/dL (6.4-8.2) Albumin 3.5 g/dL (3.4-5.0) Albumin/Globulin Ratio 0.9 (1.0-1.7) L Lipase 894 U/L (73-393) H Laboratory Tests 01/30/17 21:19 Laboratory Tests 01/30/17 21:19 EKG EKG EKG interpreted by myself at 2141 PM: Normal sinus rhythm rate of 71, nonspecific ST changes, no ST elevation. Radiology/Procedures Radiology/Procedures [facility] [address] [place] [address] IMAGING REPORT Signed PATIENT: JESSICA CALLE ACCOUNT: [id number] : 1980 LOCATION: ER AGE: 36 SEX: F EXAM STATUS: REG ER ORD. PHYSICIAN: ОЛЕГ GAFFNEY MD REASON: left flank pain; elev bun/cr and elev lipase PROCEDURE: CT ABDOMEN PELVIS WO CONTRAST INDICATION: LEFT SIDE FLANK PAIN COMPARISON: November 15, 2016 TECHNIQUE: Axial CT images were obtained through the abdomen and pelvis without intravenous contrast. Limited assessment of solid organ structures and vasculature secondary to lack of intravenous contrast. One or more of the following individualized dose reduction techniques were utilized for this examination: 1. Automated exposure control; 2. Adjustment of the mA and/or kV according to patient size; 3. Use of iterative reconstruction technique. FINDINGS: Chest Base: Partially imaged without gross abnormality. Vessels: No abdominal aortic aneurysm. Liver/Biliary: Postcholecystectomy changes without intrahepatic bile duct dilation Pancreas: Apparent cystic lesion at pancreatic head and uncinate process measuring up to approximately 32 x 19 mm. This appears slightly increased in size from prior. Spleen: 2 cm low-attenuation lesion of the spleen. Kidneys/Adrenal: 12 mm nonobstructive left renal stone. Mild prominence of extrarenal pelvis bilaterally. Bladder: Largely decompressed. GI: No free air. No bowel dilation to suggest obstruction. No periappendiceal inflammation. Degenerative changes spine IMPRESSION: 1. Nonobstructive left renal stone without a definite radiopaque obstructive ureter stone. 2. No evidence of bowel obstruction or appendicitis. 3. Cystic lesion at the pancreatic head and uncinate process which appears slightly increased in size from prior. Could be from causes such as pseudocyst formation in a patient with history of pancreatitis but other causes of cystic neoplasms such as intraductal papillary mucinous neoplasm is within the differential and continued follow-up could be obtained to ensure that this does not continue to increase in size. 4. There may also be a small cystic lesion within the spleen. Electronically signed by: Chidi Vasquez MD (01/30/2017 11:56 PM) [facility] DICTATED and SIGNED BY: CHIDI VASQUEZ MD DATE: 01/30/17 [id number] CC: ОЛЕГ GAFFNEY MD; UNKNOWN PCP NAME ~ Course & Med Decision Making Course & Med Decision Making Evaluated patient. BP quite elevated (patient normally takes her BP meds at night and has not taken it yet); given clonidine here. Patient with elev BUN/CR which she states she has had but does not know values. She does she a "kidney doctor." She has normal potassium here so no evidence of acute renal failure. CT without contrast ordered. Spoke with patient re: admission due to elev lipase ; she wants to decline but will wait for CT results. At midnight; CT results back: no obstructive uropathy but pancreatic findings noted. Reviewed with patient my concerns and recommendation. Dr Palacios has accepted patient for admission if she desires to stay. At 0010 AM I spoke with the patient at length regarding her findings and my concerns. Condition was admission, nothing by mouth status, evaluation by GI. She refuses to stay. She understands that she could become extremely ill from pancreatitis. She still does not wish to stay but she states she will contact her doctor in the morning. The mother did call up and spoke with the nurse. Patient signed out GEORGE Hutchinson Disclaimer Jasper Disclaimer This electronic medical record was generated, in whole or in part, using a voice recognition dictation system. Departure Departure Impression: Primary Impression: Abdominal pain Additional Impressions: Acute pancreatitis Chronic kidney disease Disposition: 07 AGAINST MEDICAL ADVICE Condition: STABLE Referrals: UNKNOWN PCP NAME (PCP) Problem Qualifiers Primary Impression: Abdominal pain Abdominal location: epigastric Qualified Codes: R10.13 - Epigastric pain Additional Impressions: Acute pancreatitis Pancreatitis type: unspecified pancreatitis type Acute pancreatitis complication: unspecified Qualified Codes: K85.90 - Acute pancreatitis without necrosis or infection, unspecified Chronic kidney disease Chronic kidney disease stage: unspecified stage Qualified Codes: N18.9 - Chronic kidney disease, unspecified ОЛЕГ GAFFNEY MD Jan 30, 2017 21:49
[2017-01-30 21:52] LABS: CALCIUM 9.1 mg/dL (8.5-10.1); CREATININE 2.6 mg/dL (0.6-1.0); GFR 20.8; POTASSIUM 4.9 mmol/L (3.5-5.1)
[2017-01-30 21:58] LABS: ALBUMIN 3.5 g/dL (3.4-5.0); ALBUMIN/GLOBULIN RATIO 0.9 (1.0-1.7); TOTAL BILIRUBIN 0.2 mg/dL (0.2-1.0); TOTAL PROTEIN 7.3 g/dL (6.4-8.2)
--- NOTE | 2017-01-30 23:59 | RAD ---
INDICATION: LEFT SIDE FLANK PAIN COMPARISON: November 15, 2016 TECHNIQUE: Axial CT images were obtained through the abdomen and pelvis without intravenous contrast. Limited assessment of solid organ structures and vasculature secondary to lack of intravenous contrast. One or more of the following individualized dose reduction techniques were utilized for this examination: 1. Automated exposure control; 2. Adjustment of the mA and/or kV according to patient size; 3. Use of iterative reconstruction technique. FINDINGS: Chest Base: Partially imaged without gross abnormality. Vessels: No abdominal aortic aneurysm. Liver/Biliary: Postcholecystectomy changes without intrahepatic bile duct dilation Pancreas: Apparent cystic lesion at pancreatic head and uncinate process measuring up to approximately 32 x 19 mm. This appears slightly increased in size from prior. Spleen: 2 cm low-attenuation lesion of the spleen. Kidneys/Adrenal: 12 mm nonobstructive left renal stone. Mild prominence of extrarenal pelvis bilaterally. Bladder: Largely decompressed. GI: No free air. No bowel dilation to suggest obstruction. No periappendiceal inflammation. Degenerative changes spine IMPRESSION: 1. Nonobstructive left renal stone without a definite radiopaque obstructive ureter stone. 2. No evidence of bowel obstruction or appendicitis. 3. Cystic lesion at the pancreatic head and uncinate process which appears slightly increased in size from prior. Could be from causes such as pseudocyst formation in a patient with history of pancreatitis but other causes of cystic neoplasms such as intraductal papillary mucinous neoplasm is within the differential and continued follow-up could be obtained to ensure that this does not continue to increase in size. 4. There may also be a small cystic lesion within the spleen. Electronically signed by: Reinaldo Hunter MD (01/30/2017 11:56 PM) [facility]
[2017-01-31 00:33] VITALS: BP 144/80
--- NOTE | 2017-01-31 07:07 | EKG ---
[facility] [address] [place] [address] Test Date: 2017-01-30 Test Time: 21:41:20 Pat Name: JESISCA CALLE Department: Room: Gender: F Web Application Tester: : 1980 Requested By: ОЛЕГ GAFFNEY Order Number: [id number] Reading MD: Measurements Intervals [place] Rate: 71 P: 47 OH: 184 QRS: 29 QRSD: 92 T: 72 QT: 410 QTc: 451 Interpretive Statements SINUS RHYTHM QRS(T) CONTOUR ABNORMALITY CANNOT RULE OUT ANTEROSEPTAL MYOCARDIAL DAMAGE T ABNORMALITY IN HIGH LATERAL LEADS RI6.01 Unconfirmed report No previous ECG available for comparison
== END 2017-01-31 01:20 | disposition left against medical advice (07) ==
LOC: ER 18:38
DX: K85.90 Acute pancreatitis without necrosis or infection, unspecified (principal); I12.9 Hypertensive chronic kidney disease with stage 1 through stage 4 chronic kidney disease, or unspecified chronic kidney disease; N18.9 Chronic kidney disease, unspecified; J45.909 Unspecified asthma, uncomplicated; Z87.442 Personal history of urinary calculi; Z90.49 Acquired absence of other specified parts of digestive tract
CPT/HCPCS: 36415; 74176; 80053; 81001; 83690; 84702; 85025; 87086; 93005; 96361; 96374; 96375; 99285; J2405; J3010; J7030

== ENCOUNTER 2017-02-03 20:59 | Emergency (ER) | payer OTHER ==
[~2017-02-03] VITALS: Ht 160 cm; Wt 99.3 kg
[2017-02-03 21:43] LABS: BASO # 0.1 x10^3/uL (0.0-0.2); BASO % 1 % (0-3); EOS % 2 % (0-3); HEMATOCRIT 38.4 % (36.0-47.0); HEMOGLOBIN 12.5 g/dL (12.0-15.5); LYMPH # 2.2 x10^3/uL (1.0-4.8); LYMPH % 25 % (24-48); MEAN CORPUSCULAR HEMOGLOBIN 29 pg (25-35); MEAN CORPUSCULAR HGB CONC 33 g/dL (31-37); MEAN CORPUSCULAR VOLUME 89 fL (79-100); MONO % 7 % (0-9); NEUT % 66 % (31-73); PLATELET COUNT 238 x10^3/uL (140-400); RED BLOOD COUNT 4.31 x10^6/uL (3.50-5.40); RED CELL DISTRIBUTION WIDTH 14.2 % (11.5-14.5); WHITE BLOOD COUNT 9.2 x10^3/uL (4.0-11.0)
[2017-02-03 21:59] LABS: CALCIUM 9.2 mg/dL (8.5-10.1); CREATININE 2.9 mg/dL (0.6-1.0); GFR 18.4; POTASSIUM 4.9 mmol/L (3.5-5.1)
[2017-02-03] MEDS ORDERED: IV NORMAL SALINE 1000ML BAG 1,000 ML IV ONE (22:00)
[2017-02-03] MEDS ORDERED: ONDANSETRON PF 4 MG/2 ML VIAL. IV ONE (22:00)
[2017-02-03] MEDS ORDERED: KETOROLAC 30 MG/ML INJ. IV ONE (22:00)
[2017-02-03 22:06] LABS: ALBUMIN 3.6 g/dL (3.4-5.0); ALBUMIN/GLOBULIN RATIO 0.8 (1.0-1.7); TOTAL BILIRUBIN 0.3 mg/dL (0.2-1.0); TOTAL PROTEIN 7.9 g/dL (6.4-8.2)
[2017-02-03 22:11] VITALS: BP 191/106
[2017-02-03 22:21] LABS: BILIRUBIN,URINE NEGATIVE (NEG); GLUCOSE,URINE NEGATIVE (NEG); NITRITE,URINE NEGATIVE (NEG); PH,URINE 5.5; PROTEIN,URINE 100 mg/dL (NEG-TRACE); UROBILINOGEN,URINE 0.2 mg/dL (0.2 mg/dL)
[2017-02-03 22:32] LABS: BACTERIA,URINE FEW /HPF (0-FEW); RBC,URINE 0 /HPF (0-2); SQUAMOUS EPITHELIAL CELL,UR FEW /LPF
--- NOTE | 2017-02-03 22:58 | RAD ---
Indication: Bilateral flank pain with blood in stool. History of renal stones and kidney disease. Technique: Axial images and coronal and sagittal reformatted images are provided. Comparison is from 4 days ago. One or more of the following individualized dose reduction techniques were utilized for this examination: 1. Automated exposure control 2. Adjustment of the mA and/or kV according to patient size 3. Use of iterative reconstruction technique Findings: Lung bases are clear. There is no pleural effusion. The heart is not enlarged. Solid organ evaluation is limited without contrast. Liver is unremarkable. Gallbladder is absent. Spleen is not enlarged. Low-density lesion in the spleen is stable. Cystic lesion in the head of the pancreas is stable. Adrenals are unremarkable. Nonobstructing left renal calculus is stable, lower pole calyx, 12 mm. There is no obstructing calculus. Aorta is normal caliber. Lack of IV or oral contrast limits evaluation of bowel. There is no bowel obstruction or mural thickening. Normal appendix is noted. Colon is grossly unremarkable. There is no bladder calculus. There is no adnexal mass. There are calcified phleboliths. There are degenerative changes in the spine. IMPRESSION: 1. No acute abdominal findings. 2. Stable nonobstructing left renal calculus. Electronically signed by: Mirza Jean-Baptiste MD (02/03/2017 10:54 PM) [facility]
--- NOTE | 2017-02-03 23:12 | PHYS DOC ---
Past Medical History Past Medical History: Asthma, Hypertension, Kidney Stone, Pancreatitis Additional Past Medical Histor: learning disability Past Surgical History: Cholecystectomy Additional Past Surgical Histo: STONE REMOVAL Alcohol Use: None Drug Use: None Adult General Chief Complaint Chief Complaint: FLANK PAIN HPI HPI Patient is a 36 year old F who presents with left flank pain. Patient states she was diagnosed with a kidney stone on Monday and the flank pain is gotten worse. Patient denies any nausea/vomiting/diarrhea. Patient denies any fevers. Patient states she has a history of kidney stones. Patient has no other complaints. Patient rates the pain as 10 on a 10 ratings in the left flank to the groin. Patient denies any dysuria. Review of Systems Review of Systems GEN: Denies fevers, chills, sweats HEENT: Denies blurred vision, sore throat CV: Denies chest pain RESP: Denies shortness of air, cough GI: Left flank pain NEURO: Denies confusion, dizziness MSK: Denies weakness, joint pain/swelling Current Medications Current Medications Current Medications Medications (Trade) Dose Ordered Sig/Bety Start Time Stop Time Status Last Admin Dose Admin Ketorolac Tromethamine (Toradol) 30 mg 1X ONCE 02/03/17 22:00 02/03/17 22:01 DC 02/03/17 22:05 30 MG Ondansetron HCl (Zofran) 4 mg 1X ONCE 02/03/17 22:00 02/03/17 22:01 DC 02/03/17 22:04 4 MG Sodium Chloride 1,000 ml @ 1,000 mls/hr 1X ONCE 02/03/17 22:00 02/03/17 22:59 DC 02/03/17 22:05 1,000 MLS/HR Allergies Allergies Allergies Coded Allergies Type Severity Reaction Last Updated Verified No Known Drug Allergies 09/02/16 No Physical Exam Physical Exam GEN.: No apparent distress. Alert and oriented. HEENT: Head is normocephalic, atraumatic NECK: Supple. LUNGS: CTAB. HEART: RRR, S1, S2 present. Peripheral pulses intact ABDOMEN: Soft, mild tenderness palpation left flank, no CVA tenderness, no rebound tenderness. Positive bowel sounds. EXTREMITIES: Without any cyanosis. NEUROLOGIC: Normal speech, normal tone PSYCHIATRIC: Normal affect, normal mood. SKIN: No ulcerations Current Patient Data Vital Signs Vital Signs Date Time Temp Pulse Resp B/P (MAP) Pulse Ox O2 Delivery O2 Flow Rate FiO2 02/03/17 21:05 98.5 63 16 188/111 (136) 99 Room Air 98.5 Lab Values Laboratory Tests Test 02/03/17 21:22 02/03/17 21:53 02/03/17 22:14 White Blood Count 9.2 x10^3/uL (4.0-11.0) Red Blood Count 4.31 x10^6/uL (3.50-5.40) Hemoglobin 12.5 g/dL (12.0-15.5) Hematocrit 38.4 % (36.0-47.0) Mean Corpuscular Volume 89 fL (79-100) Mean Corpuscular Hemoglobin 29 pg (25-35) Mean Corpuscular Hemoglobin Concent 33 g/dL (31-37) Red Cell Distribution Width 14.2 % (11.5-14.5) Platelet Count 238 x10^3/uL (140-400) Neutrophils (%) (Auto) 66 % (31-73) Lymphocytes (%) (Auto) 25 % (24-48) Monocytes (%) (Auto) 7 % (0-9) Eosinophils (%) (Auto) 2 % (0-3) Basophils (%) (Auto) 1 % (0-3) Neutrophils # (Auto) 6.0 x10^3uL (1.8-7.7) Lymphocytes # (Auto) 2.2 x10^3/uL (1.0-4.8) Monocytes # (Auto) 0.6 x10^3/uL (0.0-1.1) Eosinophils # (Auto) 0.2 x10^3/uL (0.0-0.7) Basophils # (Auto) 0.1 x10^3/uL (0.0-0.2) Sodium Level 140 mmol/L (136-145) Potassium Level 4.9 mmol/L (3.5-5.1) Chloride Level 107 mmol/L (98-107) Carbon Dioxide Level 20 mmol/L (21-32) L Anion Gap 13 (6-14) Blood Urea Nitrogen 42 mg/dL (7-20) H Creatinine 2.9 mg/dL (0.6-1.0) H Estimated GFR (Cockcroft-Gault) 18.4 BUN/Creatinine Ratio 14 (6-20) Glucose Level 87 mg/dL (70-99) Calcium Level 9.2 mg/dL (8.5-10.1) Total Bilirubin 0.3 mg/dL (0.2-1.0) Aspartate Amino Transferase (AST) 15 U/L (15-37) Alanine Aminotransferase (ALT) 21 U/L (14-59) Alkaline Phosphatase 107 U/L (46-116) Total Protein 7.9 g/dL (6.4-8.2) Albumin 3.6 g/dL (3.4-5.0) Albumin/Globulin Ratio 0.8 (1.0-1.7) L Urine Collection Type Unknown Urine Color Yellow Urine Clarity Cloudy Urine pH 5.5 Urine Specific [place] 1.015 Urine Protein 100 mg/dL (NEG-TRACE) Urine Glucose (UA) Negative mg/dL (NEG) Urine Ketones (Stick) Negative mg/dL (NEG) Urine Blood Small (NEG) Urine Nitrite Negative (NEG) Urine Bilirubin Negative (NEG) Urine Urobilinogen Dipstick 0.2 mg/dL (0.2 mg/dL) Urine Leukocyte Esterase Trace (NEG) Urine RBC 0 /HPF (0-2) Urine WBC 1-4 /HPF (0-4) Urine Squamous Epithelial Cells Few /LPF Urine Bacteria Few /HPF (0-FEW) POC Urine HCG, Qualitative Hcg negative (Negative) Laboratory Tests 02/03/17 21:22 Laboratory Tests 02/03/17 21:22 EKG EKG [] Radiology/Procedures Radiology/Procedures CT scan shows left renal calculus no other abnormal findings[] Course & Med Decision Making Course & Med Decision Making Pertinent Labs and Imaging studies reviewed. (See chart for details) ED course: Patient was seen and examined emergency room CBC, CMP, UA, CT scan abdomen pelvis contrast were ordered patient received pain meds and 1 L normal saline 2300: I performed a chart review which shows the patient has chronic kidney disease creatinine at baseline ranges between 2.0 and 3.0 2310: Updated patient on CT findings and lab results. Patient admits that she has chronic kidney disease and sees trap setter. I dressed the patient's blood pressure in which she states she has no headache or blurry vision and forgot to take her blood pressure medication tonight. Patient does not want me to give her any blood pressure medication here in the emergency room and would like to go home she can take her blood pressure medication. Patient is stable for discharge. Recommended follow-up with her trap setter and PCP. MDM: After reviewing the chart, CC/HPI/PMH, physical exam, [lab results], [ radiological results], I do not believe the patient has an intra-abdominal emergency warranting further workup and/or admission at this time. I do not believe the patient has hypertensive emergency warranting IV blood pressure medication. Recommended patient take her blood pressure medication when she gets home and she has refused blood pressure medication here in the emergency room. Recommended short-term follow-up with her PCP and trap setter. Patient stable for discharge. Additional verbal discharge instructions were provided to the patient and that if symptoms get worse or any new symptoms arise that are worrisome to the patient she is to return to the emergency room immediately [] Dragon Disclaimer Dragon Disclaimer This electronic medical record was generated, in whole or in part, using a voice recognition dictation system. Departure Departure Impression: Primary Impression: Renal calculus, left Additional Impression: Chronic renal disease Disposition: 01 HOME, SELF-CARE Condition: IMPROVED Referrals: UNKNOWN PCP NAME (PCP) Patient Instructions: Flank Pain, [id number] Additional Instructions: Please follow-up with your family physician in next 1-2 days and please follow up with her trap setter within next week Problem Qualifiers VIRGINIE KOLB DO Feb 03, 2017 23:12
== END 2017-02-03 23:54 | disposition home or self-care (01) ==
LOC: ER 20:59
DX: N20.0 Calculus of kidney (principal); I12.9 Hypertensive chronic kidney disease with stage 1 through stage 4 chronic kidney disease, or unspecified chronic kidney disease; N18.9 Chronic kidney disease, unspecified; J45.909 Unspecified asthma, uncomplicated; Z87.442 Personal history of urinary calculi
CPT/HCPCS: 36415; 74176; 80053; 81001; 81025; 85025; 87086; 96374; 96375; 99285; J1885; J2405; J7030

== ENCOUNTER 2017-06-19 20:49 | Emergency (ER) | payer OTHER ==
[2017-06-19 21:58] LABS: URINE HCG POC HCG NEGATIVE (Negative)
[2017-06-19 22:06] LABS: BILIRUBIN,URINE NEGATIVE (NEG); CLARITY,URINE CLEAR; COLOR,URINE YELLOW; GLUCOSE,URINE NEGATIVE (NEG); NITRITE,URINE NEGATIVE (NEG); PH,URINE 6.5; PROTEIN,URINE 100 mg/dL (NEG-TRACE); UROBILINOGEN,URINE 0.2 mg/dL (0.2 mg/dL)
[2017-06-19 22:09] LABS: ADD MAN DIFF? NO
[2017-06-19 22:11] LABS: BASO # 0.1 x10^3/uL (0.0-0.2); BASO % 1 % (0-3); EOS # 0.2 x10^3/uL (0.0-0.7); EOS % 3 % (0-3); HEMATOCRIT 35.9 % (36.0-47.0); HEMOGLOBIN 11.8 g/dL (12.0-15.5); LYMPH # 1.8 x10^3/uL (1.0-4.8); LYMPH % 23 % (24-48); MEAN CORPUSCULAR HEMOGLOBIN 29 pg (25-35); MEAN CORPUSCULAR HGB CONC 33 g/dL (31-37); MEAN CORPUSCULAR VOLUME 89 fL (79-100); MONO # 0.6 x10^3/uL (0.0-1.1); MONO % 8 % (0-9); NEUT # 5.1 x10^3uL (1.8-7.7); NEUT % 66 % (31-73); PLATELET COUNT 179 x10^3/uL (140-400); RED BLOOD COUNT 4.04 x10^6/uL (3.50-5.40); WHITE BLOOD COUNT 7.8 x10^3/uL (4.0-11.0)
[2017-06-19 22:15] LABS: BACTERIA,URINE FEW /HPF (0-FEW); SQUAMOUS EPITHELIAL CELL,UR MOD /LPF; WBC,URINE OCC /HPF (0-4)
[2017-06-19] MEDS: METOPROLOL TART IMMED RELEASE 50 MG TABLET. PO ×2 (22:26)
[2017-06-19] MEDS: amLODIPine BESYLATE 5 MG TABLET PO ×2 (22:26)
[2017-06-19 22:27] LABS: ANION GAP 11 (6-14); BLOOD UREA NITROGEN 28 mg/dL (7-20); BUN/CREATININE RATIO 10 (6-20); CALCIUM 8.5 mg/dL (8.5-10.1); CARBON DIOXIDE 22 mmol/L (21-32); CHLORIDE 109 mmol/L (98-107); CREATININE 2.7 mg/dL (0.6-1.0); GFR 19.8; GLUCOSE 103 mg/dL (70-99); POTASSIUM 4.3 mmol/L (3.5-5.1); SODIUM 142 mmol/L (136-145)
[2017-06-19] MEDS: MORPHINE SULFATE 10 MG/ML VIAL. IV ×2 (22:28)
[2017-06-19 22:37] LABS: ALBUMIN 2.8 g/dL (3.4-5.0); ALBUMIN/GLOBULIN RATIO 0.7 (1.0-1.7); ALK PHOS 104 U/L (46-116); ALT (SGPT) 17 U/L (14-59); AST (SGOT) 12 U/L (15-37); LIPASE 487 U/L (73-393); MAGNESIUM 2.1 mg/dL (1.8-2.4); TOTAL BILIRUBIN 0.2 mg/dL (0.2-1.0); TOTAL PROTEIN 6.7 g/dL (6.4-8.2)
== END 2017-06-19 23:15 | disposition home or self-care (01) ==
LOC: ER 20:49
DX: N28.9 Disorder of kidney and ureter, unspecified (principal); R10.9 Unspecified abdominal pain; I10 Essential (primary) hypertension; J45.909 Unspecified asthma, uncomplicated; Z90.49 Acquired absence of other specified parts of digestive tract
CPT/HCPCS: 36415; 80053; 81001; 81025; 83690; 83735; 85025; 96374; 99284-25; J2270

== ENCOUNTER 2017-12-27 00:16 | Emergency (ER) | payer OTHER ==
[~2017-12-27] VITALS: Ht 167.6 cm; Wt 97.1 kg
[~2017-12-27 00:16] MED LIST changes: +HYDR-971 PO; +LISI-130 PO; -LISI40TA PO
[2017-12-27] MEDS ORDERED: fentaNYL PF VIAL 100 MCG/2 ML VIAL IV ONE (00:45)
[2017-12-27] MEDS ORDERED: IV NORMAL SALINE 1000ML BAG 1,000 ML IV ONE (00:45)
[2017-12-27] MEDS ORDERED: ONDANSETRON PF 4 MG/2 ML VIAL. IV ONE (00:45)
[2017-12-27 01:02] LABS: BILIRUBIN,URINE NEGATIVE (NEG); CLARITY,URINE CLEAR; COLOR,URINE YELLOW; NITRITE,URINE NEGATIVE (NEG); PH,URINE 5.5; PROTEIN,URINE 30 mg/dL (NEG-TRACE); UROBILINOGEN,URINE 0.2 mg/dL (0.2 mg/dL)
[2017-12-27 01:04] LABS: BASO # 0.1 x10^3/uL (0.0-0.2); BASO % 1 % (0-3); EOS # 0.2 x10^3/uL (0.0-0.7); EOS % 2 % (0-3); HEMATOCRIT 38.9 % (36.0-47.0); HEMOGLOBIN 13.2 g/dL (12.0-15.5); LYMPH # 2.1 x10^3/uL (1.0-4.8); LYMPH % 25 % (24-48); MEAN CORPUSCULAR HEMOGLOBIN 32 pg (25-35); MEAN CORPUSCULAR HGB CONC 34 g/dL (31-37); MEAN CORPUSCULAR VOLUME 93 fL (79-100); MONO # 0.6 x10^3/uL (0.0-1.1); MONO % 7 % (0-9); NEUT # 5.4 x10^3uL (1.8-7.7); NEUT % 65 % (31-73); PLATELET COUNT 197 x10^3/uL (140-400); RED BLOOD COUNT 4.17 x10^6/uL (3.50-5.40); RED CELL DISTRIBUTION WIDTH 13.7 % (11.5-14.5); WHITE BLOOD COUNT 8.4 x10^3/uL (4.0-11.0)
[2017-12-27 01:08] LABS: BACTERIA,URINE FEW /HPF (0-FEW); HYALINE CASTS, URINE OCCASIONAL /HPF; RBC,URINE OCC /HPF (0-2); SQUAMOUS EPITHELIAL CELL,UR MOD /LPF
[2017-12-27 01:14] LABS: CALCIUM 9.1 mg/dL (8.5-10.1); GFR 17.6; POTASSIUM 5.2 mmol/L (3.5-5.1)
--- NOTE | 2017-12-27 01:19 | PHYS DOC ---
Past Medical History Past Medical History: Asthma, Hypertension, Kidney Stone, Pancreatitis Additional Past Medical Histor: learning disability Past Surgical History: Cholecystectomy Additional Past Surgical Histo: STONE REMOVAL Alcohol Use: None Drug Use: None Adult General Chief Complaint Chief Complaint: ABDOMINAL PAIN [facility] HPI Patient is a 37 year old female brought in by ambulance with a chief complaint of abdominal pain up a constant 2 days sharp associated with nausea one episode of vomiting she felt the pain was because her cat was lying on her abdomen but it is getting worse. No chest pain she has had trouble keeping her medications down. She does have a history of pancreatitis in the past this feels similar to that. She has had a cholecystectomy as well as she tells me a kidney stone removal at earlier this year. No flank pain no fever. Review of Systems Review of Systems Constitutional: Denies fever or chills [] Eyes: Denies change in visual acuity, redness, or eye pain [] HENT: Denies nasal congestion or sore throat [] Respiratory: Denies cough or shortness of breath [] Cardiovascular: No additional information not addressed in HPI [] : Denies dysuria or hematuria [] Musculoskeletal: Denies back pain or joint pain [] All other systems were reviewed and found to be within normal limits, except as documented in this note. Current Medications Current Medications Current Medications Medications (Trade) Dose Ordered Sig/[facility] Start Time Stop Time Status Last Admin Dose Admin Acetaminophen/ Hydrocodone Bitart (Lortab 5/325) 2 tab 1X ONCE 12/27/17 02:30 12/27/17 02:31 DC 12/27/17 02:23 2 TAB Fentanyl Citrate (Fentanyl 2ml Vial) 50 mcg 1X ONCE 12/27/17 00:45 12/27/17 00:46 DC 12/27/17 01:11 50 MCG Labetalol HCl (Normodyne Iv Push) 20 mg 1X ONCE 12/27/17 01:30 12/27/17 01:31 DC 12/27/17 01:12 20 MG Morphine Sulfate (Morphine Sulfate) 4 mg 1X ONCE 12/27/17 02:15 12/27/17 02:17 DC Ondansetron HCl (Zofran Odt) 4 mg 1X ONCE 12/27/17 02:30 12/27/17 02:31 DC 12/27/17 02:23 4 MG Ondansetron HCl (Zofran) 4 mg 1X ONCE 12/27/17 00:45 12/27/17 00:46 DC 12/27/17 01:11 4 MG Sodium Chloride 1,000 ml @ 1,000 mls/hr 1X ONCE 12/27/17 00:45 12/27/17 01:44 DC 12/27/17 01:10 1,000 MLS/HR Allergies Allergies Allergies Coded Allergies Type Severity Reaction Last Updated Verified No Known Drug Allergies 09/02/16 No Physical Exam Physical Exam Constitutional: Well developed, well nourished, disheveled no acute distress, non-toxic appearance. [] HENT: Normocephalic, atraumatic, bilateral external ears normal, oropharynx moist, no oral exudates, nose normal. [] Eyes: PERRLA, EOMI, conjunctiva normal, no discharge. [] Neck: Normal range of motion, no tenderness, supple, no stridor. [] Cardiovascular:Heart rate regular rhythm, no murmur [] Lungs & Thorax: Bilateral breath sounds clear to auscultation [] Abdomen: Bowel sounds normal, soft, mild epigastric tenderness, no masses, no pulsatile masses. [] Skin: Warm, dry, no erythema, no rash. [] Back: No tenderness, no CVA tenderness. [] Extremities: No tenderness, no cyanosis, no clubbing, ROM intact, no edema. [] Neurologic: Alert and oriented X 3, normal motor function, normal sensory function, no focal deficits noted. [] Psychologic: Affect normal, judgement normal, mood normal. [] Current Patient Data Vital Signs Vital Signs Date Time Temp Pulse Resp B/P (MAP) Pulse Ox O2 Delivery O2 Flow Rate FiO2 12/27/17 02:23 15 100 Room Air 12/27/17 02:00 73 159/84 (109) 12/27/17 00:16 98.1 98.1 Lab Values Laboratory Tests Test 12/27/17 00:45 12/27/17 00:50 12/27/17 00:56 White Blood Count 8.4 x10^3/uL (4.0-11.0) Red Blood Count 4.17 x10^6/uL (3.50-5.40) Hemoglobin 13.2 g/dL (12.0-15.5) Hematocrit 38.9 % (36.0-47.0) Mean Corpuscular Volume 93 fL (79-100) Mean Corpuscular Hemoglobin 32 pg (25-35) Mean Corpuscular Hemoglobin Concent 34 g/dL (31-37) Red Cell Distribution Width 13.7 % (11.5-14.5) Platelet Count 197 x10^3/uL (140-400) Neutrophils (%) (Auto) 65 % (31-73) Lymphocytes (%) (Auto) 25 % (24-48) Monocytes (%) (Auto) 7 % (0-9) Eosinophils (%) (Auto) 2 % (0-3) Basophils (%) (Auto) 1 % (0-3) Neutrophils # (Auto) 5.4 x10^3uL (1.8-7.7) Lymphocytes # (Auto) 2.1 x10^3/uL (1.0-4.8) Monocytes # (Auto) 0.6 x10^3/uL (0.0-1.1) Eosinophils # (Auto) 0.2 x10^3/uL (0.0-0.7) Basophils # (Auto) 0.1 x10^3/uL (0.0-0.2) Maternal Serum HCG Beta Subunit 1 mIU/mL (0-5) Sodium Level 142 mmol/L (136-145) Potassium Level 5.2 mmol/L (3.5-5.1) H Chloride Level 109 mmol/L (98-107) H Carbon Dioxide Level 19 mmol/L (21-32) L Anion Gap 14 (6-14) Blood Urea Nitrogen 40 mg/dL (7-20) H Creatinine 3.0 mg/dL (0.6-1.0) H Estimated GFR (Cockcroft-Gault) 17.6 BUN/Creatinine Ratio 13 (6-20) Glucose Level 85 mg/dL (70-99) Calcium Level 9.1 mg/dL (8.5-10.1) Total Bilirubin 0.2 mg/dL (0.2-1.0) Aspartate Amino Transferase (AST) 15 U/L (15-37) Alanine Aminotransferase (ALT) 27 U/L (14-59) Alkaline Phosphatase 112 U/L (46-116) Troponin I Quantitative < 0.017 ng/mL (0.000-0.055) Total Protein 7.3 g/dL (6.4-8.2) Albumin 3.7 g/dL (3.4-5.0) Albumin/Globulin Ratio 1.0 (1.0-1.7) Lipase 494 U/L (73-393) H Urine Collection Type Unknown Urine Color Yellow Urine Clarity Clear Urine pH 5.5 Urine Specific [place] 1.010 Urine Protein 30 mg/dL (NEG-TRACE) Urine Glucose (UA) Negative mg/dL (NEG) Urine Ketones (Stick) Negative mg/dL (NEG) Urine Blood Negative (NEG) Urine Nitrite Negative (NEG) Urine Bilirubin Negative (NEG) Urine Urobilinogen Dipstick 0.2 mg/dL (0.2 mg/dL) Urine Leukocyte Esterase Negative (NEG) Urine RBC Occ /HPF (0-2) Urine WBC 1-4 /HPF (0-4) Urine Squamous Epithelial Cells Mod /LPF Urine Bacteria Few /HPF (0-FEW) Urine Hyaline Casts Occasional /HPF Urine Mucus Slight /LPF POC Urine HCG, Qualitative Hcg negative (Negative) Laboratory Tests 12/27/17 00:45 Laboratory Tests 12/27/17 00:45 EKG EKG [] Interpretation Time: EKG shows a normal sinus rhythm at a rate of 63 no STEMI no obvious ischemia intervals appear essentially normal interpreted by me time of encounter. Radiology/Procedures Radiology/Procedures [] Course & Med Decision Making Course & Med Decision Making Pertinent Labs and Imaging studies reviewed. (See chart for details) 37-year-old female history of cholecystectomy pancreatitis possible pseudocyst kidney stones hypertension poorly controlled presenting with upper abdominal discomfort and a blood pressure initially of 230/130. Differential would include pancreatitis small bowel obstruction gastritis occult ischemia. Patient receives labwork IV labetalol for blood pressure control pain control. final plan: lipase midlly elevated cr small bump from baseline pt given iv fluids and pain control and was feeling better. no obvious pseudocyst noted on ct scan. after treatment pt pain is much improved, i offered admission but she declined. i talked to the patient's mom who is comfortable with the plan and we reviewed the follow up plan. bp 150's. [place] Disclaimer Dragon Disclaimer This electronic medical record was generated, in whole or in part, using a voice recognition dictation system. Departure Departure Impression: Primary Impression: Acute pancreatitis Disposition: HOME, SELF-CARE Condition: IMPROVED Referrals: UNKNOWN PCP NAME (PCP) Scripts Hydrocodone/Apap 5-325 (NORCO 5-325 TABLET) 1 Each Tablet 1-2 EACH PO PRN Q6HRS PRN for PAIN, #15 as needed for pain Prov: MAYCOL PEREIRA MD 12/27/17 Ondansetron Hcl (ZOFRAN) 4 Mg Tablet 4 MG PO PRN TID PRN for NAUSEA/VOMITING, #15 nausea/vomiting Prov: MAYCOL PEREIRA MD 12/27/17 MAYCOL PEREIRA MD Dec 27, 2017 01:18
[2017-12-27 01:20] LABS: ALBUMIN 3.7 g/dL (3.4-5.0); TOTAL BILIRUBIN 0.2 mg/dL (0.2-1.0); TOTAL PROTEIN 7.3 g/dL (6.4-8.2)
[2017-12-27] MEDS ORDERED: LABETALOL 20 MG/4 ML DISP.SYRIN. IVP ONE (01:30)
--- NOTE | 2017-12-27 01:56 | RAD ---
INDICATION: abd pain; eval for obstruction COMPARISON: February 03, 2017 TECHNIQUE: Axial CT images obtained through the abdomen and pelvis without contrast. Limited assessment of solid organ structures and vasculature secondary to lack of intravenous contrast.. One or more of the following individualized dose reduction techniques were utilized for this examination: 1. Automated exposure control; 2. Adjustment of the mA and/or kV according to patient size; 3. Use of iterative reconstruction technique. FINDINGS: Abdominal aorta is not grossly aneurysmal. Mild calcific atherosclerosis. No intrahepatic bile duct dilation. Postcholecystectomy. No peripancreatic fluid collection. Spleen unremarkable. Nonobstructive left renal stones. Atrophic appearance of the kidneys. Mildly prominent extrarenal pelvis bilaterally. Uterus is visualized. Appendix is not grossly inflamed appearing. No dilated loops of bowel to suggest obstruction. Degenerative changes of spine. IMPRESSION: 1. No evidence of bowel obstruction or appendicitis. 2. Nonobstructive left renal stone. Electronically signed by: Reinaldo Hunter MD (12/27/2017 1:53 AM) [facility]
[2017-12-27 02:00] VITALS: BP 159/84
[2017-12-27] MEDS ORDERED: MORPHINE SULFATE 4 MG/ML VIAL. IV ONE (02:15)
[2017-12-27] MEDS ORDERED: ONDA4TAB7 PO (02:27)
[2017-12-27] MEDS ORDERED: HYDR-971 PO (02:27)
[2017-12-27] MEDS ORDERED: HYDROcodone/APAP 5/325MG 1 TAB TABLET PO ONE (02:30)
[2017-12-27] MEDS ORDERED: ONDANSETRON ODT 4 MG TAB.RAPDIS. PO ONE (02:30)
--- NOTE | 2017-12-27 03:34 | EKG ---
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
== END 2017-12-27 02:32 | disposition home or self-care (01) ==
LOC: ER 00:16
DX: K85.90 Acute pancreatitis without necrosis or infection, unspecified (principal); J45.909 Unspecified asthma, uncomplicated; I10 Essential (primary) hypertension; Z90.49 Acquired absence of other specified parts of digestive tract; Z87.442 Personal history of urinary calculi
CPT/HCPCS: 36415; 74176; 80053; 81001; 81025; 83690; 84484; 84702; 85025; 93005; 96361; 96374; 96375; 99285; J2405; J3010; J3490; J7030; Q0162

== ENCOUNTER 2018-01-01 21:34 | Emergency (ER) | payer OTHER ==
[~2018-01-01 21:34] MED LIST changes: +ONDA4TAB7 PO
[2018-01-01] MEDS ORDERED: MORPHINE SULFATE 10 MG/ML VIAL. IV ONE (22:45)
--- NOTE | 2018-01-02 01:14 | PHYS DOC ---
Past Medical History Past Medical History: Asthma, Hypertension, Kidney Stone, Pancreatitis Additional Past Medical Histor: learning disability Past Surgical History: Cholecystectomy Additional Past Surgical Histo: STONE REMOVAL Alcohol Use: None Drug Use: None Adult General HPI HPI Patient is a 37 year old female who presents with abdominal pain. The patient states she was in the emergency department several days earlier. She was told she had pancreatitis. She is uncertain what causes her pancreatitis pain. She was not admitted at that visit. Tonight, she returns to the ER complaining of diffuse abdominal pain that has returned over the last 24 hours. She has no nausea or vomiting. She denies diarrhea. No hematemesis, melena, hematochezia. She denies urinary symptoms. Review of Systems Review of Systems Constitutional: Denies fever or chills Eyes: Denies change in visual acuity, redness, or eye pain HENT: Denies nasal congestion or sore throat Respiratory: Denies cough or shortness of breath Cardiovascular: No additional information not addressed in HPI GI: Denies abdominal pain, nausea, vomiting, bloody stools or diarrhea : Denies dysuria or hematuria Musculoskeletal: Denies back pain or joint pain Integument: Denies rash or skin lesions Neurologic: Denies headache, focal weakness or sensory changes Endocrine: Denies polyuria or polydipsia All other systems were reviewed and found to be within normal limits, except as documented in this note. Allergies Allergies Allergies Coded Allergies Type Severity Reaction Last Updated Verified No Known Drug Allergies 09/02/16 No Physical Exam Physical Exam Constitutional: Well developed, well nourished, no acute distress HENT: Normocephalic, atraumatic, bilateral external ears normal Eyes: PERRLA, EOMI, conjunctiva normal Neck: Normal range of motion, no tenderness Cardiovascular:Heart rate regular rhythm Lungs & Thorax: Bilateral breath sounds clear Abdomen: Bowel sounds normal, soft, no tenderness Skin: Warm, dry, no erythema, no rash Back: No tenderness, no CVA tenderness Extremities: No tenderness, no cyanosis, no clubbing, ROM intact, no edema Neurologic: Alert and oriented X 3, normal motor function Psychologic: Affect normal, judgement normal EKG EKG [] Radiology/Procedures Radiology/Procedures [] Course & Med Decision Making Course & Med Decision Making Pertinent Labs and Imaging studies reviewed. (See chart for details) Patient is seen and examined in the emergency department. She complains of abdominal pain but her abdominal exam is completely benign. She has no tenderness to palpation. She has no guarding or rebound. She did have a CT scan 3 days earlier in this emergency room which did not reveal any acute findings, including findings suspicious for a grade tenderness. Standard abdominal labs are ordered this evening. No CT scan is ordered this evening. 01:32: No acute findings on the patient's lab panel. She did have pyuria. She did have some squamous epithelial cells. The patient is resting comfortably during the ED course and in no distress. She did not require pain medications. The patient was in the emergency Department during some downtime procedures so not all of her labs are entered into this documentation. Plan is for discharge home. The patient is placed on a 5 day course of Macrobid. She is encouraged to follow-up with her primary care doctor or return to the ER for any new or worsening symptoms. There is no evidence for pancreatitis this evening. Dragon Disclaimer Dragon Disclaimer This electronic medical record was generated, in whole or in part, using a voice recognition dictation system. Departure Departure Referrals: UNKNOWN PCP NAME (PCP) Scripts Nitrofurantoin Monohyd/M-Cryst (MACROBID 100 MG CAPSULE) 100 Mg Capsule 100 MG PO BID for 5 Days, #10 CAP Prov: ASHIA ALVARADO DO 01/02/18 ASHIA ALVARADO DO Jan 02, 2018 01:14
[2018-01-02] MEDS ORDERED: NITR100C62 PO (01:30)
[2018-01-02] MEDS ORDERED: NITROFURANTOIN MONOHYD/M-CRYST 100 MG CAPSULE. PO ONE (01:45)
[2018-01-02 01:51] LABS: ALBUMIN 3.6 g/dL (3.4-5.0); CALCIUM 9.6 mg/dL (8.5-10.1); DIRECT BILIRUBIN 0.1 mg/dL (0.0-0.2); GFR 17.6; POTASSIUM 4.6 mmol/L (3.5-5.1); TOTAL BILIRUBIN 0.3 mg/dL (0.2-1.0); TOTAL PROTEIN 7.8 g/dL (6.4-8.2)
[2018-01-02 02:02] LABS: BASO % 1 % (0-3); EOS % 3 % (0-3); HEMATOCRIT 38.9 % (36.0-47.0); HEMOGLOBIN 13.1 g/dL (12.0-15.5); LYMPH % 22 % (24-48); MEAN CORPUSCULAR HEMOGLOBIN 31 pg (25-35); MEAN CORPUSCULAR HGB CONC 34 g/dL (31-37); MEAN CORPUSCULAR VOLUME 93 fL (79-100); MONO % 7 % (0-9); NEUT % 68 % (31-73); PLATELET COUNT 197 x10^3/uL (140-400); RED BLOOD COUNT 4.18 x10^6/uL (3.50-5.40); RED CELL DISTRIBUTION WIDTH 13.2 % (11.5-14.5); WHITE BLOOD COUNT 7.7 x10^3/uL (4.0-11.0)
[2018-01-02 02:03] LABS: EOS # 0.2 x10^3/uL (0.0-0.7); LYMPH # 1.7 x10^3/uL (1.0-4.8); MONO # 0.5 x10^3/uL (0.0-1.1); NEUT # 5.2 x10^3uL (1.8-7.7)
[2018-01-02 02:09] LABS: BILIRUBIN,URINE NEGATIVE (NEG); CLARITY,URINE CLEAR; COLOR,URINE YELLOW; PROTEIN,URINE 100 mg/dL (NEG-TRACE)
[2018-01-02 02:10] LABS: BACTERIA,URINE FEW /HPF (0-FEW); NITRITE,URINE NEGATIVE (NEG); SQUAMOUS EPITHELIAL CELL,UR MOD /LPF; UROBILINOGEN,URINE 0.2 mg/dL (0.2 mg/dL)
== END 2018-01-02 01:52 | disposition home or self-care (01) ==
LOC: ER 21:34
DX: R10.84 Generalized abdominal pain (principal); J45.909 Unspecified asthma, uncomplicated; I10 Essential (primary) hypertension; Z90.49 Acquired absence of other specified parts of digestive tract; Z87.442 Personal history of urinary calculi
CPT/HCPCS: 36415; 80048; 80076; 81001; 81025; 83690; 85025; 87086; 99284; J2270

== ENCOUNTER 2018-04-20 21:54 | Emergency (ER) | payer OTHER ==
[~2018-04-20] VITALS: Ht 160 cm; Wt 99.8 kg
[~2018-04-20 21:54] MED LIST changes: -AMLO10TA2 PO; +AMLO10TA6 PO; +HYDR-2145 PO; +HYDR-3164 PO; -HYDR-971 PO; -HYDR25TA9 PO; +LOSA100T14 PO; -LOSA100T6 PO; +NITR100C62 PO; -OXYC-323 PO; +OXYC1TAB15 PO
[2018-04-20 22:22] LABS: BILIRUBIN,URINE NEGATIVE (NEG); CLARITY,URINE CLEAR; COLOR,URINE YELLOW; NITRITE,URINE NEGATIVE (NEG); PH,URINE 6.5; PROTEIN,URINE 30 mg/dL (NEG-TRACE); UROBILINOGEN,URINE 0.2 mg/dL (0.2 mg/dL)
[2018-04-20 22:28] LABS: SQUAMOUS EPITHELIAL CELL,UR MANY /LPF
[2018-04-20 22:29] LABS: BACTERIA,URINE FEW /HPF (0-FEW)
[2018-04-20] MEDS ORDERED: IV NORMAL SALINE 1000ML BAG 1,000 ML IV ONE ×2 (22:30→23:30)
[2018-04-20 22:41] LABS: BASO # 0.1 x10^3/uL (0.0-0.2); BASO % 1 % (0-3); EOS # 0.2 x10^3/uL (0.0-0.7); EOS % 3 % (0-3); HEMATOCRIT 37.2 % (36.0-47.0); HEMOGLOBIN 12.7 g/dL (12.0-15.5); LYMPH # 2.1 x10^3/uL (1.0-4.8); LYMPH % 22 % (24-48); MEAN CORPUSCULAR HEMOGLOBIN 32 pg (25-35); MEAN CORPUSCULAR HGB CONC 34 g/dL (31-37); MEAN CORPUSCULAR VOLUME 93 fL (79-100); MONO # 0.8 x10^3/uL (0.0-1.1); MONO % 8 % (0-9); NEUT # 6.3 x10^3uL (1.8-7.7); NEUT % 66 % (31-73); PLATELET COUNT 238 x10^3/uL (140-400); RED BLOOD COUNT 3.99 x10^6/uL (3.50-5.40); RED CELL DISTRIBUTION WIDTH 13.7 % (11.5-14.5); WHITE BLOOD COUNT 9.4 x10^3/uL (4.0-11.0)
--- NOTE | 2018-04-20 22:46 | PHYS DOC ---
Past Medical History Past Medical History: Asthma, Hypertension, Kidney Stone, Pancreatitis Additional Past Medical Histor: learning disability Past Surgical History: Cholecystectomy Additional Past Surgical Histo: STONE REMOVAL Alcohol Use: None Drug Use: None Adult General Chief Complaint Chief Complaint: DIZZY/LIGHT HEADED [facility] HPI Patient is a 38 year old female who presents with dizziness. Patient states she has had some dizziness over the last 48 hours. She describes some feeling of dizziness. Particularly associated with position changes. She has had some mild nausea today and states she had one episode of emesis while she was taking a shower this evening. She has been able to keep down food or fluids since then. Her last menstrual cycle was last week. No fever or chills. No cough. No abdominal pain. No prior history of heavy menses. She denies having similar symptoms in the past. Review of Systems Review of Systems Constitutional: Denies fever or chills Eyes: Denies change in visual acuity HENT: Denies nasal congestion or sore throat Respiratory: Denies cough or shortness of breath Cardiovascular: No additional information not addressed in HPI GI: Denies abdominal pain : Denies dysuria Musculoskeletal: Denies back pain Integument: Denies rash or skin lesions Neurologic: Denies headache, or any focal neuro complaints Endocrine: Denies polyuria All other systems were reviewed and found to be within normal limits, except as documented in this note. Current Medications Current Medications Current Medications Medications (Trade) Dose Ordered Sig/[facility] Start Time Stop Time Status Last Admin Dose Admin Acetaminophen/ Hydrocodone Bitart (Lortab 5/325) 2 tab 1X ONCE 04/20/18 23:45 04/20/18 23:46 DC 04/20/18 23:51 2 TAB Sodium Chloride 1,000 ml @ 1,000 mls/hr 1X ONCE 04/20/18 23:30 04/21/18 00:29 DC 04/20/18 23:32 1,000 MLS/HR Allergies Allergies Allergies Coded Allergies Type Severity Reaction Last Updated Verified No Known Drug Allergies 09/02/16 No Physical Exam Physical Exam Constitutional: Well developed, well nourished, no acute distress, non-toxic appearance HENT: Normocephalic, atraumatic, bilateral external ears normal, oropharynx moist Eyes: PERRLA, EOMI, conjunctiva normal, no discharge Neck: Normal range of motion, no tenderness, supple, no stridor Cardiovascular:Heart rate regular rhythm, no murmur Lungs & Thorax: Bilateral breath sounds clear to auscultation Abdomen: Bowel sounds normal, soft, no tenderness Skin: Warm, dry, no erythema, no rash Extremities: No tenderness, no edema Neurologic: Alert and oriented X 3, normal motor function, normal sensory function, CN II-XII intact bilaterally, normal steady gait Psychologic: Affect normal, judgement normal, mood normal Current Patient Data Vital Signs Vital Signs Date Time Temp Pulse Resp B/P (MAP) Pulse Ox O2 Delivery O2 Flow Rate FiO2 04/21/18 00:01 77 16 100 04/20/18 22:02 98.0 123/81 (95) Room Air 98.0 Lab Values Laboratory Tests Test 04/20/18 22:15 04/20/18 22:16 04/20/18 22:30 04/21/18 00:25 Urine Collection Type Unknown Urine Color Yellow Urine Clarity Clear Urine pH 6.5 Urine Specific [place] 1.015 Urine Protein 30 mg/dL (NEG-TRACE) Urine Glucose (UA) Negative mg/dL (NEG) Urine Ketones (Stick) Negative mg/dL (NEG) Urine Blood Negative (NEG) Urine Nitrite Negative (NEG) Urine Bilirubin Negative (NEG) Urine Urobilinogen Dipstick 0.2 mg/dL (0.2 mg/dL) Urine Leukocyte Esterase Negative (NEG) Urine RBC 1-2 /HPF (0-2) Urine WBC 1-4 /HPF (0-4) Urine Squamous Epithelial Cells Many /LPF Urine Bacteria Few /HPF (0-FEW) POC Urine HCG, Qualitative Hcg negative (Negative) White Blood Count 9.4 x10^3/uL (4.0-11.0) Red Blood Count 3.99 x10^6/uL (3.50-5.40) Hemoglobin 12.7 g/dL (12.0-15.5) Hematocrit 37.2 % (36.0-47.0) Mean Corpuscular Volume 93 fL (79-100) Mean Corpuscular Hemoglobin 32 pg (25-35) Mean Corpuscular Hemoglobin Concent 34 g/dL (31-37) Red Cell Distribution Width 13.7 % (11.5-14.5) Platelet Count 238 x10^3/uL (140-400) Neutrophils (%) (Auto) 66 % (31-73) Lymphocytes (%) (Auto) 22 % (24-48) L Monocytes (%) (Auto) 8 % (0-9) Eosinophils (%) (Auto) 3 % (0-3) Basophils (%) (Auto) 1 % (0-3) Neutrophils # (Auto) 6.3 x10^3uL (1.8-7.7) Lymphocytes # (Auto) 2.1 x10^3/uL (1.0-4.8) Monocytes # (Auto) 0.8 x10^3/uL (0.0-1.1) Eosinophils # (Auto) 0.2 x10^3/uL (0.0-0.7) Basophils # (Auto) 0.1 x10^3/uL (0.0-0.2) Sodium Level 142 mmol/L (136-145) 140 mmol/L (136-145) Potassium Level 5.3 mmol/L (3.5-5.1) H 5.4 mmol/L (3.5-5.1) H Chloride Level 108 mmol/L (98-107) H 110 mmol/L (98-107) H Carbon Dioxide Level 21 mmol/L (21-32) 19 mmol/L (21-32) L Anion Gap 13 (6-14) 11 (6-14) Blood Urea Nitrogen 39 mg/dL (7-20) H 36 mg/dL (7-20) H Creatinine 2.9 mg/dL (0.6-1.0) H 2.7 mg/dL (0.6-1.0) H Estimated GFR (Cockcroft-Gault) 18.2 19.7 Glucose Level 89 mg/dL (70-99) 95 mg/dL (70-99) Calcium Level 9.1 mg/dL (8.5-10.1) 8.0 mg/dL (8.5-10.1) L Troponin I Quantitative < 0.017 ng/mL (0.000-0.055) Laboratory Tests 04/20/18 22:30 Laboratory Tests 04/20/18 22:30 04/21/18 00:25 EKG EKG No STEMI Interpretation Time: 22:45 Radiology/Procedures Radiology/Procedures [] Course & Med Decision Making Course & Med Decision Making Pertinent Labs and Imaging studies reviewed. (See chart for details) Patient is evaluated immediately on arrival to her room. She has no distress. Of note, the patient did come to the ER by ambulance. She was ambulating from the [place] into her room and tach staying at the same time and had a normal steady gait and no difficulties. Patient was also taxing on her phone throughout the entirety of the interview and physical exam. Patient has a completely normal physical exam. We'll check basic labs and EKG and UA. 1 L of normal saline ordered. Patient was given IV fluids. She was in no distress during the ED course. She was noted to be mildly hyperkalemic. She was given 2 L of saline and potassium was repeated but was not significantly decreased. Review of record reveals that the patient has had potassiums in this range in the past. Her creatinine is at baseline at 2.7. I discussed this diagnosis with the patient. I recommended that she be admitted to the hospital. The patient denies swelling is to be admitted. She is requesting discharge home. She feels subjectively improved. She did not have any EKG changes associated with hyperkalemia. The patient is followed by nephrology at this facility and states she can call her rn operating room on Monday morning. Since the patient is opting not to remain in the hospital, she is given 1 amp of calcium gluconate. She is also given 1 dose of Lasix 20 mg in the ER prior to discharge home. She is strongly encouraged follow-up with her primary rn operating room or primary care physician or return to the ER for any new or worsening symptoms. If she does return, I would admit her for hyperkalemia. Dragon Disclaimer Dragon Disclaimer This electronic medical record was generated, in whole or in part, using a voice recognition dictation system. Departure Departure Disposition: HOME, SELF-CARE Condition: GOOD Referrals: UNKNOWN PCP NAME (PCP) ASHIA ALVARADO DO Apr 20, 2018 22:46
[2018-04-20 22:49] LABS: CALCIUM 9.1 mg/dL (8.5-10.1); CREATININE 2.9 mg/dL (0.6-1.0); GFR 18.2; POTASSIUM 5.3 mmol/L (3.5-5.1)
--- NOTE | 2018-04-20 22:54 | EKG ---
[facility] [address] [place] [address] Test Date: 2018-04-20 Test Time: 22:43:45 Pat Name: JESSICA CALLE Department: Room: Gender: F Teacher Dancing: : 1980 Requested By: ASHIA ALVARADO Order Number: [id number] Reading MD: Danilo Frank MD Measurements Intervals [place] Rate: 68 P: 36 [place]: 186 QRS: 17 QRSD: 86 T: 73 QT: 398 QTc: 427 Interpretive Statements SINUS RHYTHM Electronically Signed On 04-23-2018 10:16:00 AEROPHYSICS ENGINEER by Danilo Frank MD
[2018-04-20] MEDS ORDERED: HYDROcodone/APAP 5/325MG 1 TAB TABLET PO ONE (23:45)
[2018-04-21 00:51] LABS: CREATININE 2.7 mg/dL (0.6-1.0); GFR 19.7; POTASSIUM 5.4 mmol/L (3.5-5.1)
[2018-04-21] MEDS ORDERED: FURO-69 PO (01:12)
[2018-04-21 01:26] VITALS: BP 144/94
[2018-04-21] MEDS ORDERED: FUROSEMIDE 40 MG TABLET. PO ONE (01:45)
[2018-04-21] MEDS ORDERED: CALCIUM GLUCONATE 1,000 MG/10 ML VIAL. IVP ONE (01:45)
== END 2018-04-21 02:00 | disposition home or self-care (01) ==
LOC: ER 21:54
DX: R42 Dizziness and giddiness (principal); R11.2 Nausea with vomiting, unspecified; E87.5 Hyperkalemia; J45.909 Unspecified asthma, uncomplicated; I10 Essential (primary) hypertension
CPT/HCPCS: 36415; 80048; 81001; 81025; 84484; 85025; 93005; 96361; 96374; 99284; J0610; J7030

== ENCOUNTER 2018-06-02 19:30 | Emergency (ER) | payer OTHER ==
[~2018-06-02] VITALS: Ht 160 cm; Wt 104.3 kg
[~2018-06-02 19:30] MED LIST changes: +FURO-69 PO
[2018-06-02 20:07] LABS: BILIRUBIN,URINE NEGATIVE (NEG); CLARITY,URINE CLEAR; COLOR,URINE YELLOW; NITRITE,URINE NEGATIVE (NEG); PH,URINE 6.5; PROTEIN,URINE 30 mg/dL (NEG-TRACE); UROBILINOGEN,URINE 0.2 mg/dL (0.2 mg/dL)
--- NOTE | 2018-06-02 20:13 | PHYS DOC ---
Past Medical History Past Medical History: Asthma, Hypertension, Kidney Stone, Pancreatitis Additional Past Medical Histor: learning disability Past Surgical History: Cholecystectomy Additional Past Surgical Histo: STONE REMOVAL Alcohol Use: None Drug Use: None Adult General Chief Complaint Chief Complaint: FLANK PAIN HPI HPI Patient is a 38 YO F that is presenting with bilateral lower back pain that began last week. She states that the pain is localized, is worse when she is laying down, is constant throughout the day, and is sharp. She has a history of HTN, kidney stones, pancreatitis, and a learning disability. She reports having had her gallbladder taken out and she is on progesterone shot for control. She reports some nausea, but denies vomiting, constipation, diarrhea, blood in her urine or stool, and fever/chills. She denies trauma or mechanical injury. Review of Systems Review of Systems Constitutional: Denies fever or chills [] Eyes: Denies change in visual acuity, redness, or eye pain [] HENT: Denies nasal congestion or sore throat [] Respiratory: Denies cough or shortness of breath [] Cardiovascular: Denies chest pain or palpitations [] GI: Denies abdominal pain, vomiting, bloody stools or diarrhea, reports nausea [ ] : Denies dysuria or hematuria [] Musculoskeletal: Reports back pain, denies joint pain [] Integument: Denies rash or skin lesions [] Neurologic: Denies headache, focal weakness or sensory changes [] Complete systems were reviewed and found to be within normal limits, except as documented in this note. Current Medications Current Medications Current Medications Medications (Trade) Dose Ordered Sig/Bety Start Time Stop Time Status Last Admin Dose Admin Sodium Chloride 1,000 ml @ 1,000 mls/hr 1X ONCE 06/02/18 20:30 06/02/18 21:29 DC 06/02/18 20:44 1,000 MLS/HR Allergies Allergies Allergies Coded Allergies Type Severity Reaction Last Updated Verified No Known Drug Allergies 09/02/16 No Physical Exam Physical Exam Constitutional: Well developed, well nourished, no acute distress, non-toxic appearance. [] HENT: Normocephalic, nose normal. [] Eyes: Conjunctiva normal, no discharge. [] Neck: Normal range of motion, no tenderness. [] Cardiovascular: Heart rate regular rhythm, no murmur [] Lungs & Thorax: Bilateral breath sounds clear to auscultation [] Abdomen: Soft, no tenderness. [] Skin: Warm, dry, no erythema, no rash. [] Back: Bilateral paraspinal tenderness to palpation in the lumbar region, negative straight leg raise, negative CVA tenderness [] Extremities: No tenderness, no edema. [] Neurologic: Alert and oriented X 3, no focal deficits noted. [] Psychologic: Affect normal, judgement normal, mood normal. [] Current Patient Data Vital Signs Vital Signs Date Time Temp Pulse Resp B/P (MAP) Pulse Ox O2 Delivery O2 Flow Rate FiO2 06/02/18 22:00 58 145/80 (101) 100 Room Air 06/02/18 19:30 98.0 16 98.0 Lab Values Laboratory Tests Test 06/02/18 19:50 06/02/18 19:58 06/02/18 20:45 Urine Collection Type Void Urine Color Yellow Urine Clarity Clear Urine pH 6.5 Urine Specific [place] 1.015 Urine Protein 30 mg/dL (NEG-TRACE) Urine Glucose (UA) Negative mg/dL (NEG) Urine Ketones (Stick) Negative mg/dL (NEG) Urine Blood Negative (NEG) Urine Nitrite Negative (NEG) Urine Bilirubin Negative (NEG) Urine Urobilinogen Dipstick 0.2 mg/dL (0.2 mg/dL) Urine Leukocyte Esterase Trace (NEG) Urine RBC Rare /HPF (0-2) Urine WBC 1-4 /HPF (0-4) Urine Squamous Epithelial Cells Many /LPF Urine Bacteria Many /HPF (0-FEW) Urine Mucus Mod /LPF POC Urine HCG, Qualitative Hcg negative (Negative) White Blood Count 8.4 x10^3/uL (4.0-11.0) Red Blood Count 4.13 x10^6/uL (3.50-5.40) Hemoglobin 12.6 g/dL (12.0-15.5) Hematocrit 38.0 % (36.0-47.0) Mean Corpuscular Volume 92 fL (79-100) Mean Corpuscular Hemoglobin 30 pg (25-35) Mean Corpuscular Hemoglobin Concent 33 g/dL (31-37) Red Cell Distribution Width 13.1 % (11.5-14.5) Platelet Count 228 x10^3/uL (140-400) Neutrophils (%) (Auto) 64 % (31-73) Lymphocytes (%) (Auto) 25 % (24-48) Monocytes (%) (Auto) 7 % (0-9) Eosinophils (%) (Auto) 4 % (0-3) H Basophils (%) (Auto) 1 % (0-3) Neutrophils # (Auto) 5.3 x10^3uL (1.8-7.7) Lymphocytes # (Auto) 2.1 x10^3/uL (1.0-4.8) Monocytes # (Auto) 0.6 x10^3/uL (0.0-1.1) Eosinophils # (Auto) 0.3 x10^3/uL (0.0-0.7) Basophils # (Auto) 0.1 x10^3/uL (0.0-0.2) Sodium Level 140 mmol/L (136-145) Potassium Level 5.1 mmol/L (3.5-5.1) Chloride Level 107 mmol/L (98-107) Carbon Dioxide Level 20 mmol/L (21-32) L Anion Gap 13 (6-14) Blood Urea Nitrogen 31 mg/dL (7-20) H Creatinine 2.8 mg/dL (0.6-1.0) H Estimated GFR (Cockcroft-Gault) 18.9 BUN/Creatinine Ratio 11 (6-20) Glucose Level 87 mg/dL (70-99) Calcium Level 9.0 mg/dL (8.5-10.1) Magnesium Level 2.3 mg/dL (1.8-2.4) Total Bilirubin 0.3 mg/dL (0.2-1.0) Aspartate Amino Transferase (AST) 13 U/L (15-37) L Alanine Aminotransferase (ALT) 22 U/L (14-59) Alkaline Phosphatase 116 U/L (46-116) Total Protein 7.4 g/dL (6.4-8.2) Albumin 3.6 g/dL (3.4-5.0) Albumin/Globulin Ratio 0.9 (1.0-1.7) L Lipase 307 U/L (73-393) Laboratory Tests 06/02/18 20:45 Laboratory Tests 06/02/18 20:45 EKG EKG [] Radiology/Procedures Radiology/Procedures PROCEDURE: CT ABDOMEN PELVIS WO CONTRAST CT study of the abdomen and pelvis without contrast Clinical indications: Left flank pain. Left lower quadrant pain. Possible urinary tract stone. TECHNIQUE: Noncontrast helical CT scanning of abdomen and pelvis was performed. Without contrast, the sensitivity to detect organ pathology and GI tract pathology is decreased. PQRS compliance Statement One or more of the following individualized dose reduction techniques were utilized for this study: 1. Automated exposure control 2. Adjustment of the mA and/or kV according to patient size 3. Use of iterative reconstruction technique COMPARISON: December 27, 2017. FINDINGS: The liver and spleen and pancreas are homogeneous in appearance on this noncontrast study. The gallbladder is surgically absent. No extra hepatic biliary ductal dilatation is seen. No adrenal mass is evident. Vascular calcifications of both kidneys are seen. There is a small nonobstructing stone of the lower pole left kidney measuring 4 mm. No hydronephrosis or hydroureter is seen on either side. No ureteral stone is evident. Urinary bladder wall is smooth. No uterine mass or fibroid is seen. There is a cyst of the right ovary measuring 1.8 cm. No focal aneurysmal dilatation of the abdominal aorta is seen. No enlarged abdominal or pelvic lymphadenopathy is evident. The appendix is normal. Terminal ileum is unremarkable. No obstructive bowel pattern is evident. No pericolonic inflammatory change is seen. No free air or free fluid or mesenteric edema is seen. No lung base consolidation is evident. No lytic process is seen. IMPRESSION: 1.8 cm right ovarian cyst without free fluid. Nonobstructing stone of the lower pole of the left kidney. No acute abnormality of the abdomen or pelvis. Electronically signed by: Andres Thorne MD (06/02/2018 9:14 PM) [facility] Course & Med Decision Making Course & Med Decision Making Pertinent Labs and Imaging studies reviewed. (See chart for details) Patient is a 38 YO F that is presenting with a week long history of bilateral lower back pain. She denies trauma or strain. She reports a history of kidney stones and reports that it feels very similar this time. Labs were obtained and posted to chart. Creatinine was 2.8, unchanged from baseline in April. CT showed 1.8 cm right ovarian cyst without free fluid, non-obstructing stone within the right kidney. Pain addressed. UA with signs of contamination. Patient stable for discharge with outpatient follow-up with PCP. Discussed findings and plan with patient, who acknowledges understanding and agreement. Dragon Disclaimer [place] Disclaimer This electronic medical record was generated, in whole or in part, using a voice recognition dictation system. Departure Departure Impression: Primary Impression: Lower back pain Additional Impression: Ovarian cyst Disposition: HOME, SELF-CARE Condition: STABLE Referrals: UNKNOWN PCP NAME (PCP) Patient Instructions: Back Pain, Adult, [id number], Ovarian Cyst, Easy-to- Read Scripts Hydrocodone Bit/Acetaminophen (HYDROCODONE-APAP 5-325 ) 1 Tab Tablet 0.5-1 TAB PO PRN Q6HRS PRN for PAIN, #6 TAB 0 Refills Prov: MAHOGANY DO DO 06/02/18 Problem Qualifiers Primary Impression: Lower back pain Chronicity: unspecified Back pain laterality: bilateral Sciatica presence: without sciatica Qualified Codes: M54.5 - Low back pain Additional Impression: Ovarian cyst Laterality: right Qualified Codes: N83.201 - Unspecified ovarian cyst, right side MAHOGANY DO DO Jun 02, 2018 20:13
[2018-06-02 20:15] LABS: BACTERIA,URINE MANY /HPF (0-FEW); RBC,URINE RARE /HPF (0-2); SQUAMOUS EPITHELIAL CELL,UR MANY /LPF
[2018-06-02] MEDS ORDERED: IV NORMAL SALINE 1000ML BAG 1,000 ML IV ONE (20:30)
[2018-06-02 20:59] LABS: BASO # 0.1 x10^3/uL (0.0-0.2); BASO % 1 % (0-3); EOS # 0.3 x10^3/uL (0.0-0.7); EOS % 4 % (0-3); HEMOGLOBIN 12.6 g/dL (12.0-15.5); LYMPH # 2.1 x10^3/uL (1.0-4.8); LYMPH % 25 % (24-48); MEAN CORPUSCULAR HEMOGLOBIN 30 pg (25-35); MEAN CORPUSCULAR HGB CONC 33 g/dL (31-37); MEAN CORPUSCULAR VOLUME 92 fL (79-100); MONO # 0.6 x10^3/uL (0.0-1.1); MONO % 7 % (0-9); NEUT # 5.3 x10^3uL (1.8-7.7); NEUT % 64 % (31-73); PLATELET COUNT 228 x10^3/uL (140-400); RED BLOOD COUNT 4.13 x10^6/uL (3.50-5.40); RED CELL DISTRIBUTION WIDTH 13.1 % (11.5-14.5); WHITE BLOOD COUNT 8.4 x10^3/uL (4.0-11.0)
[2018-06-02 21:05] LABS: CREATININE 2.8 mg/dL (0.6-1.0); GFR 18.9; POTASSIUM 5.1 mmol/L (3.5-5.1)
[2018-06-02 21:11] LABS: ALBUMIN 3.6 g/dL (3.4-5.0); ALBUMIN/GLOBULIN RATIO 0.9 (1.0-1.7); MAGNESIUM 2.3 mg/dL (1.8-2.4); TOTAL BILIRUBIN 0.3 mg/dL (0.2-1.0); TOTAL PROTEIN 7.4 g/dL (6.4-8.2)
--- NOTE | 2018-06-02 21:18 | RAD ---
CT study of the abdomen and pelvis without contrast Clinical indications: Left flank pain. Left lower quadrant pain. Possible urinary tract stone. TECHNIQUE: Noncontrast helical CT scanning of abdomen and pelvis was performed. Without contrast, the sensitivity to detect organ pathology and GI tract pathology is decreased. PQRS compliance Statement One or more of the following individualized dose reduction techniques were utilized for this study: 1. Automated exposure control 2. Adjustment of the mA and/or kV according to patient size 3. Use of iterative reconstruction technique COMPARISON: December 27, 2017. FINDINGS: The liver and spleen and pancreas are homogeneous in appearance on this noncontrast study. The gallbladder is surgically absent. No extra hepatic biliary ductal dilatation is seen. No adrenal mass is evident. Vascular calcifications of both kidneys are seen. There is a small nonobstructing stone of the lower pole left kidney measuring 4 mm. No hydronephrosis or hydroureter is seen on either side. No ureteral stone is evident. Urinary bladder wall is smooth. No uterine mass or fibroid is seen. There is a cyst of the right ovary measuring 1.8 cm. No focal aneurysmal dilatation of the abdominal aorta is seen. No enlarged abdominal or pelvic lymphadenopathy is evident. The appendix is normal. Terminal ileum is unremarkable. No obstructive bowel pattern is evident. No pericolonic inflammatory change is seen. No free air or free fluid or mesenteric edema is seen. No lung base consolidation is evident. No lytic process is seen. IMPRESSION: 1.8 cm right ovarian cyst without free fluid. Nonobstructing stone of the lower pole of the left kidney. No acute abnormality of the abdomen or pelvis. Electronically signed by: Andres Thorne MD (06/02/2018 9:14 PM) [facility]
[2018-06-02 22:00] VITALS: BP 145/80
[2018-06-02] MEDS ORDERED: HYDR-2761 PO (22:02)
== END 2018-06-02 22:25 | disposition home or self-care (01) ==
LOC: ER 19:30
DX: N83.201 Unspecified ovarian cyst, right side (principal); I10 Essential (primary) hypertension; J45.909 Unspecified asthma, uncomplicated; Z87.442 Personal history of urinary calculi; Z90.49 Acquired absence of other specified parts of digestive tract; Z87.19 Personal history of other diseases of the digestive system
CPT/HCPCS: 36415; 74176; 80053; 81001; 81025; 83690; 83735; 85025; 87086; 99284; J7030

== ENCOUNTER 2018-06-21 19:25 | Emergency (ER) | payer OTHER ==
[~2018-06-21] VITALS: Ht 160 cm; Wt 99.3 kg
[2018-06-21 19:25] VITALS: BP 145/80
[~2018-06-21 19:25] MED LIST changes: -AMLO10TA6 PO; +AMLO10TA8 PO; +HYDR-2761 PO
[2018-06-21] MEDS ORDERED: IV NORMAL SALINE 1000ML BAG 1,000 ML IV SCH (19:40)
[2018-06-21] MEDS ORDERED: KETOROLAC 30 MG/ML VIAL. IV ONE (19:45)
[2018-06-21] MEDS ORDERED: PROCHLORPERAZINE 10 MG/2 ML VIAL. IV ONE (19:45)
--- NOTE | 2018-06-21 19:52 | PHYS DOC ---
Past Medical History Past Medical History: Asthma, Bipolar, Hypertension, Kidney Stone, Pancreatitis Additional Past Medical Histor: learning disability Past Surgical History: Cholecystectomy Additional Past Surgical Histo: STONE REMOVAL Alcohol Use: None Drug Use: None Adult General Chief Complaint Chief Complaint: ABDOMINAL PAIN HPI HPI Patient is a 38 year old female who presents with lower abdominal pain for the past 2-3 days. She has had the same pain in the past with pancreatitis. Patient denies drinking any alcohol. Reports that she is already had a cholecystectomy. Denies any drugs of abuse. She reports getting no relief with Tylenol. Movement makes the pain worse, holding still makes it better. The pain has been getting worse over time. Reports that is moderate to severe in intensity. No diarrhea. Some nausea, no vomiting.[] Review of Systems Review of Systems Constitutional: Denies fever or chills [] Eyes: Denies change in visual acuity, redness, or eye pain [] HENT: Denies nasal congestion or sore throat [] Respiratory: Denies cough or shortness of breath [] Cardiovascular: No chest pain or palpitations[] GI: See history of present illness[] : Denies dysuria or hematuria [] Musculoskeletal: Denies back pain or joint pain [] Integument: Denies rash or skin lesions [] Neurologic: Denies headache, focal weakness or sensory changes [] Endocrine: Denies polyuria or polydipsia [] All other systems were reviewed and found to be within normal limits, except as documented in this note. Current Medications Current Medications Current Medications Medications (Trade) Dose Ordered Sig/Bety Start Time Stop Time Status Last Admin Dose Admin Ketorolac Tromethamine (Toradol 30mg Vial) 30 mg 1X ONCE 06/21/18 19:45 06/21/18 19:46 DC 06/21/18 20:11 30 MG Prochlorperazine Edisylate (Compazine) 5 mg 1X ONCE 06/21/18 19:45 06/21/18 19:46 DC 06/21/18 20:11 5 MG Sodium Chloride 1,000 ml @ 100 mls/hr Q10H 06/21/18 19:40 06/22/18 05:39 06/21/18 20:11 100 MLS/HR Allergies Allergies Allergies Coded Allergies Type Severity Reaction Last Updated Verified No Known Drug Allergies 09/02/16 No Physical Exam Physical Exam Constitutional: Well developed, well nourished, no acute distress, non-toxic appearance. [] HENT: Normocephalic, atraumatic, bilateral external ears normal, oropharynx moist, no oral exudates, nose normal. [] Eyes: PERRLA, EOMI, conjunctiva normal, no discharge. [] Neck: Normal range of motion, no tenderness, supple, no stridor. [] Cardiovascular:Heart rate regular rhythm, no murmur [] Lungs & Thorax: Bilateral breath sounds clear to auscultation [] Abdomen: Bowel sounds normal, soft, infraumbilical tenderness, no rebound, no guarding, no rigidity, no McBurney's point tenderness, no masses, no pulsatile masses. [] Skin: Warm, dry, no erythema, no rash. [] Back: No tenderness, no CVA tenderness. [] Extremities: No tenderness, no cyanosis, no clubbing, ROM intact, no edema. [] Neurologic: Alert and oriented X 3, normal motor function, normal sensory function, no focal deficits noted. [] Psychologic: Affect normal, judgement normal, mood normal. [] Current Patient Data Vital Signs Vital Signs Date Time Temp Pulse Resp B/P (MAP) Pulse Ox O2 Delivery O2 Flow Rate FiO2 06/21/18 19:25 98.2 75 20 145/80 (101) 100 Room Air 98.2 Lab Values Laboratory Tests Test 06/21/18 20:15 White Blood Count 8.8 x10^3/uL (4.0-11.0) Red Blood Count 4.25 x10^6/uL (3.50-5.40) Hemoglobin 12.8 g/dL (12.0-15.5) Hematocrit 39.5 % (36.0-47.0) Mean Corpuscular Volume 93 fL (79-100) Mean Corpuscular Hemoglobin 30 pg (25-35) Mean Corpuscular Hemoglobin Concent 32 g/dL (31-37) Red Cell Distribution Width 13.7 % (11.5-14.5) Platelet Count 244 x10^3/uL (140-400) Neutrophils (%) (Auto) 65 % (31-73) Lymphocytes (%) (Auto) 24 % (24-48) Monocytes (%) (Auto) 7 % (0-9) Eosinophils (%) (Auto) 3 % (0-3) Basophils (%) (Auto) 1 % (0-3) Neutrophils # (Auto) 5.7 x10^3uL (1.8-7.7) Lymphocytes # (Auto) 2.1 x10^3/uL (1.0-4.8) Monocytes # (Auto) 0.6 x10^3/uL (0.0-1.1) Eosinophils # (Auto) 0.3 x10^3/uL (0.0-0.7) Basophils # (Auto) 0.1 x10^3/uL (0.0-0.2) Urine Collection Type Unknown Urine Color Yellow Urine Clarity Clear Urine pH 6.0 Urine Specific [place] 1.010 Urine Protein 30 mg/dL (NEG-TRACE) Urine Glucose (UA) Negative mg/dL (NEG) Urine Ketones (Stick) Negative mg/dL (NEG) Urine Blood Trace (NEG) Urine Nitrite Negative (NEG) Urine Bilirubin Negative (NEG) Urine Urobilinogen Dipstick 0.2 mg/dL (0.2 mg/dL) Urine Leukocyte Esterase Negative (NEG) Urine RBC 1-2 /HPF (0-2) Urine WBC 1-4 /HPF (0-4) Urine Squamous Epithelial Cells Mod /LPF Urine Bacteria Moderate /HPF (0-FEW) Urine Mucus Slight /LPF Sodium Level 140 mmol/L (136-145) Potassium Level 5.2 mmol/L (3.5-5.1) H Chloride Level 107 mmol/L (98-107) Carbon Dioxide Level 19 mmol/L (21-32) L Anion Gap 14 (6-14) Blood Urea Nitrogen 38 mg/dL (7-20) H Creatinine 2.7 mg/dL (0.6-1.0) H Estimated GFR (Cockcroft-Gault) 19.7 BUN/Creatinine Ratio 14 (6-20) Glucose Level 85 mg/dL (70-99) Calcium Level 9.5 mg/dL (8.5-10.1) Total Bilirubin 0.3 mg/dL (0.2-1.0) Aspartate Amino Transferase (AST) 13 U/L (15-37) L Alanine Aminotransferase (ALT) 18 U/L (14-59) Alkaline Phosphatase 103 U/L (46-116) Total Protein 7.8 g/dL (6.4-8.2) Albumin 3.4 g/dL (3.4-5.0) Albumin/Globulin Ratio 0.8 (1.0-1.7) L Lipase 347 U/L (73-393) Urine Opiates Screen Neg (NEG) Urine Methadone Screen Neg (NEG) Urine Barbiturates Neg (NEG) Urine Phencyclidine Screen Neg (NEG) Urine Amphetamine/Methamphetamine Neg (NEG) Urine Benzodiazepines Screen Neg (NEG) Urine Cocaine Screen Neg (NEG) Urine Cannabinoids Screen Neg (NEG) Urine Ethyl Alcohol Neg (NEG) Laboratory Tests 06/21/18 20:15 Laboratory Tests 06/21/18 20:15 EKG EKG [] Radiology/Procedures Radiology/Procedures [] Course & Med Decision Making Course & Med Decision Making Pertinent Labs and Imaging studies reviewed. (See chart for details) ED course: Patient arrived, was placed in bed, in tolerated exam well. During her evaluation she realized that she had to leave. She was warned of the risks to include or permanent disability. She was able to state these risks in her own words. She appears able to make an informed decision. She signed out AGAINST MEDICAL ADVICE. She was informed that she was always welcome to return at any time for further evaluation and treatment. Medical decision making: There is no evidence of pancreatitis by laboratory criteria and the location of the discomfort is not consistent with pancreatitis. Other concerns include diverticulitis or obstruction. There is no evidence of an abdominal aortic aneurysm on exam. No evidence of urinary tract infection or pyelonephritis.[] Dragon Disclaimer Dragon Disclaimer This electronic medical record was generated, in whole or in part, using a voice recognition dictation system. Departure Departure Impression: Primary Impression: Abdominal pain Disposition: 07 AGAINST MEDICAL ADVICE Condition: IMPROVED Referrals: UNKNOWN PCP NAME (PCP) Problem Qualifiers Primary Impression: Abdominal pain Abdominal location: lower abdomen, unspecified Qualified Codes: R10.30 - Lower abdominal pain, unspecified DIA CARY DO Jun 21, 2018 19:52
[2018-06-21 20:24] LABS: BASO # 0.1 x10^3/uL (0.0-0.2); BASO % 1 % (0-3); BILIRUBIN,URINE NEGATIVE (NEG); CLARITY,URINE CLEAR; COLOR,URINE YELLOW; EOS # 0.3 x10^3/uL (0.0-0.7); EOS % 3 % (0-3); HEMATOCRIT 39.5 % (36.0-47.0); HEMOGLOBIN 12.8 g/dL (12.0-15.5); LYMPH # 2.1 x10^3/uL (1.0-4.8); LYMPH % 24 % (24-48); MEAN CORPUSCULAR HEMOGLOBIN 30 pg (25-35); MEAN CORPUSCULAR HGB CONC 32 g/dL (31-37); MEAN CORPUSCULAR VOLUME 93 fL (79-100); MONO # 0.6 x10^3/uL (0.0-1.1); MONO % 7 % (0-9); NEUT # 5.7 x10^3uL (1.8-7.7); NEUT % 65 % (31-73); NITRITE,URINE NEGATIVE (NEG); PLATELET COUNT 244 x10^3/uL (140-400); PROTEIN,URINE 30 mg/dL (NEG-TRACE); RED BLOOD COUNT 4.25 x10^6/uL (3.50-5.40); RED CELL DISTRIBUTION WIDTH 13.7 % (11.5-14.5); UROBILINOGEN,URINE 0.2 mg/dL (0.2 mg/dL); WHITE BLOOD COUNT 8.8 x10^3/uL (4.0-11.0)
[2018-06-21 20:31] LABS: SQUAMOUS EPITHELIAL CELL,UR MOD /LPF
[2018-06-21 20:32] LABS: BACTERIA,URINE MODERATE /HPF (0-FEW); CALCIUM 9.5 mg/dL (8.5-10.1); CREATININE 2.7 mg/dL (0.6-1.0); GFR 19.7; POTASSIUM 5.2 mmol/L (3.5-5.1)
[2018-06-21 20:33] LABS: BARBITURATES NEG (NEG); BENZODIAZEPINES NEG (NEG); CANNABINOIDS NEG (NEG); COCAINE NEG (NEG); METHADONE NEG (NEG); OPIATES NEG (NEG); PHENCYCLIDINE NEG (NEG)
[2018-06-21 20:34] LABS: AMPHETAMINE/METHAMPHETAMINE NEG (NEG)
[2018-06-21 20:37] LABS: ALBUMIN 3.4 g/dL (3.4-5.0); ALBUMIN/GLOBULIN RATIO 0.8 (1.0-1.7); TOTAL BILIRUBIN 0.3 mg/dL (0.2-1.0); TOTAL PROTEIN 7.8 g/dL (6.4-8.2)
[2018-06-21 20:41] LABS: PROTHROMBIN TIME PATIENT 13.4 SEC (11.7-14.0)
[2018-06-21 21:50] LABS: U PREG PATIENT NEGATIVE (NEG)
== END 2018-06-21 20:40 | disposition left against medical advice (07) ==
LOC: ER 19:25
DX: R10.33 Periumbilical pain (principal); F31.9 Bipolar disorder, unspecified; I10 Essential (primary) hypertension; J45.909 Unspecified asthma, uncomplicated; Z87.442 Personal history of urinary calculi; Z90.49 Acquired absence of other specified parts of digestive tract
CPT/HCPCS: 36415; 80053; 80307; 81001; 81025; 83690; 85025; 85610; 87086; 96374; 96375; 99283; J0780; J1885; J7030